=== PATIENT | female | born 1935 | race Caucasian/White ===

== ENCOUNTER 2017-02-20 00:32 | Inpatient (IN) ==
[2017-02-20 01:00] LABS: INR 1.2; Prothrombin Time 13.1 Seconds (9.4-12.1)
[2017-02-20 01:03] LABS: Activated Partial Thrombo Time 25.9 Seconds (26.0-36.0)
[2017-02-20 01:10] LABS: Albumin 2.9 g/dL (3.5-5.0); Albumin/Globulin Ratio 0.9 (1.1-2.2); Alkaline Phosphatase 95 Units/L (38-126); Aspartate Amino Transferase 13 Units/L (5-34); BUN/Creatinine Ratio 20 (6-26); Bilirubin,Direct 0.2 mg/dL (0.0-0.5); Bilirubin,Indirect 0.2 mg/dL (0.0-1.2); Bilirubin,Total 0.4 mg/dL (0.2-1.2); Blood Urea Nitrogen 24 mg/dL (7-20); Calcium 8.1 mg/dL (8.6-10.8); Carbon Dioxide 18 mEq/L (19-29); Chloride 109 mEq/L (98-109); Globulin 3.4 g/dL (2.4-3.5); Glucose 136 mg/dL (70-99); Osmolality,Calculated 292 (280-300); Potassium 4.2 mEq/L (3.5-4.5); Sodium 138 mEq/L (136-145); Total Protein 6.3 g/dL (6.0-8.3); eGFR For African Americans 51 (> 60); eGFR For Non-African Americans 42 (> 60)
[2017-02-20 01:21] LABS: Basophils % 0.4 %; Eosinophils # 0.1 K/mcL (0.0-0.6); Hematocrit 32.2 % (35.3-44.9); Hemoglobin 10.1 g/dL (11.5-15.4); Immature Granulocytes % 0.3 % (0-4); Lymphocytes # 0.4 K/mcL (0.6-4.6); Lymphocytes % 3.9 %; Mean Corpuscular HGB Conc 31.4 g/dL (31.6-35.5); Mean Corpuscular Hemoglobin 25.9 pg (28.0-33.3); Mean Corpuscular Volume 82.6 fL (83.0-100.0); Mean Platelet Volume 9.8 fL (9.4-12.4); Monocytes # 0.6 K/mcL (0.0-1.3); Monocytes % 5.2 %; Neutrophils # 9.5 K/mcL (1.6-8.9); Platelet Count 238 K/mcL (140-400); Red Cell Distribution Width 15.7 % (11.5-14.5); Segmented Neutrophils % 89.2 %
--- NOTE | 2017-02-20 01:21 | Emergency Department Note ---
"Disposition Clinical Impression: UTI (urinary tract infection) Qualifiers: Urinary tract infection type: site unspecified Hematuria presence: without hematuria Qualified Code(s): N39.0 - Urinary tract infection, site not specified Altered mental status Qualifiers: Altered mental status type: unspecified Qualified Code(s): R41.82 - Altered mental status, unspecified Disposition: Admitted As Inpatient Condition: Good Referrals: Mitchell Farah MD [Primary Care Provider] - Forms: ED Satisfaction Letter Altered Mental Status HPI - General Chief Complaint: ED Altered Mental Status Stated Complaint: AMS Time Seen by Provider: 02/20/17 00:34 Source: patient Mode of arrival: EMS Limitations: altered mental status Nursing Notes Reviewed: Yes Vital Signs Reviewed: Yes - History of Present Illness HPI Narrative: 81-year-old female history of hypertension, Parkinson's, Alzheimer's who presents to the ER from nursing facility due to concern for worsening confusion. Patient reports she was out playing with other old people. She is a poor historian and unable to provide much history. She is alert and oriented 2. She states that she thinks she might have a UTI. States she has had several in the past. She has had discomfort whenever she is urinating. No chest pain or shortness of breath. No abdominal pain. No nausea vomiting or diarrhea. No other complaints. MD complaint: confusion Onset (ago): unknown Context: history of similar presentation Associated symptoms: Reports: cough. Denies: chest pain, fever, nausea/vomiting - Related Data Home Medications Medication Instructions Recorded Confirmed Carbidopa/Levodopa 1 tab PO QID 03/15/16 02/02/17 [Carbidopa-Levodopa 25-100 Tab] Rotigotine [Neupro] 1 each TD DAILY MDD 4mg/24hr 03/15/16 02/02/17 Acetaminophen [Tylenol] 650 mg PO Q4H 08/03/16 02/02/17 Gabapentin [Neurontin] 400 mg PO TID 08/03/16 02/02/17 Lisinopril [Zestril] 5 mg PO DAILY 08/03/16 02/02/17 Oxycodone HCl [Oxaydo] 5 mg PO QID PRN 08/03/16 02/02/17 Sennosides/Docusate Sodium [Senna 1 each PO BID 08/03/16 02/02/17 Plus] Acetaminophen [Non-Aspirin] 650 mg PO Q6H PRN 11/02/16 02/02/17 Aspirin [Lo-Dose Aspirin EC] 81 mg PO DAILY 11/02/16 02/02/17 Ipratropium/Albuterol Neb [Duoneb] 3 ml IH QID PRN 11/02/16 02/02/17 Mv-Mn/FA/Vit K1/Lycop/Lut/Zeax 1 each PO DAILY 11/02/16 02/02/17 [Ocuvite Eye + Multi Tablet] Previous Rx's Medication Instructions Recorded Polyethylene Glycol 3350 [MiraLAX] 17 gm PO DAILY #14 powd.pack 03/18/16 Octreotide Acetate (LAR) 20 mg IM QMONTH #6 kit 02/15/17 [Sandostatin Lar] Allergies Allergy/AdvReac Type Severity Reaction Status Date / Time cephalexin [From Keflex] Allergy Rash Verified 11/02/16 13:49 All systems ED: reviewed and negative except as stated. Constitutional: Denies: fever Cardiovascular: Denies: chest pain Respiratory: Reports: cough. Denies: dyspnea Gastrointestinal: Denies: abdominal pain, nausea, vomiting Genitourinary: Reports: dysuria. Denies: hematuria Past Medical History - Past Medical History Attestation: Yes The following information was validated with the patient. Source: patient, old records reviewed Medical history: Reports: arthritis, cancer, coronary artery disease, CVA, dementia, GERD, hyperlipidemia, hypertension, malignancy, osteoporosis, peripheral artery disease, renal disease, venous stasis, other Surgical history: Reports: appendectomy, colectomy (Partial colectomy for diverticular disease.), herniorrhaphy, hip replacement, orthopedic, other (Back surgery. Right elbow surgery.), other (Cardiac Septal defect repair. Oophorectomy.), LE stent (s), LE vascular intervention Psychiatric history: Reports: no psych history - Social History Smoking Status: Never smoker Smokeless Tobacco Status: No Alcohol use: Reports: none Drug use: Reports: none Physical Exam - General Limitations: altered mental status General appearance: alert, in no apparent distress - Head Head exam: atraumatic - Eye Eye exam: Present: normal appearance, PERRL, EOMI - ENT ENT exam: normal exam - Neck Neck exam: Present: normal inspection, full ROM - Chest Chest inspection: Present: normal inspection, symmetric chest wall rise - Respiratory Respiratory exam: Present: normal lung sounds bilaterally - Cardiovascular Cardiovascular exam: Present: regular rate, normal rhythm, normal heart sounds - Abdominal Exam Abdominal exam: Present: soft, Non-Tender. Absent: tenderness - Extremities Exam Extremities exam: Present: normal inspection, full ROM - Expanded Upper Extremity Exam Shoulder exam: Present: normal inspection, full ROM Arm exam: Present: normal inspection, full ROM Elbow exam: Present: normal inspection, full ROM Forearm/Wrist exam: Present: normal inspection, full ROM Hand exam: Present: normal inspection, full ROM - Expanded Lower Extremity Exam Hip/Pelvis exam: Present: normal inspection, full ROM Upper leg exam: Present: normal inspection, full ROM Knee exam: Present: normal inspection, full ROM Lower leg exam: Present: normal inspection, full ROM Ankle exam: Present: normal inspection, full ROM Foot/toe exam: Present: normal inspection, full ROM Neurovascular/Tendon exam: Absent: motor deficit, sensory deficit - Neurological Exam Neurological exam: Present: alert, CN II-XII intact. Absent: oriented X3, motor sensory deficit - Expanded Neurological Exam Patient oriented to: Present: person, place Speech: Present: fluid speech Cranial nerves: EOM function (II, III, IV, ): Normal, facial sensation (V): Normal, spinal accessory function (XI): Normal, tongue deviation (XII): Normal Motor strength - LUE: 4/5 Motor strength - RUE: 4/5 Motor strength - LLE: 4/5 Motor strength - RLE: 4/5 Sensory exam upper extremity: light touch: Normal Sensory exam lower extremity: light touch: Normal Coma Scale Eye Opening: Spontaneous Coma Scale Motor Response: Obeys Commands Coma Scale Verbal Response: Oriented Coma Scale Total: 15 - Psychiatric Psychiatric exam: Present: normal affect - Skin Skin exam: Present: warm, dry, intact Course Course Narrative: Patient seen and examined. A and O 2 here. Febrile. We will check a CT scan of her head as well as EKG, chest x-ray as well as labs including lactate and blood cultures and urinalysis. Vital Signs Temperature 102.5 F H 02/20/17 01:26 EDT Pulse Rate 90 02/20/17 01:26 EDT Respiratory Rate 18 02/20/17 01:26 EDT Blood Pressure 126/57 02/20/17 01:26 EDT O2 Sat by Pulse Oximetry 94 02/20/17 01:26 EDT Temperature 102.5 F H 02/20/17 01:26 EDT Pulse Rate 101 02/20/17 02:19 Respiratory Rate 18 02/20/17 02:19 Blood Pressure 113/40 02/20/17 02:19 O2 Sat by Pulse Oximetry 93 02/20/17 02:19 Oxygen Delivery Oxygen Delivery Room Air Altered Mental Status - MDM Narrative Medical decision making narrative: 81-year-old female presents to the ER due to altered mental status. Baseline dementia but reports more confused. She is alert and oriented 2. Nonfocal neurologic exam. Found to be febrile here. Urinalysis to mistreats UTI. Patient given a liter of fluids as well as Levaquin. She is admitted to the hospitalist service for UTI, altered mental status. - Lab Data Lab results reviewed: Yes I reviewed the patient's lab results. Result diagrams: 02/20/17 01:04 EST 02/20/17 01:04 EST Lab Results 02/20/17 02/20/17 02/20/17 Range/Units 01:04 EST 01:04 EST 01:04 EST WBC 10.7 (4.3-11.1) K/mcL RBC 3.90 (3.82-4.97) M/mcL Hgb 10.1 L (11.5-15.4) g/dL Hct 32.2 L (35.3-44.9) % MCV 82.6 L (83.0-100.0) fL MCH 25.9 L (28.0-33.3) pg MCHC 31.4 L (31.6-35.5) g/dL RDW 15.7 H (11.5-14.5) % Plt Count 238 (140-400) K/mcL MPV 9.8 (9.4-12.4) fL Immature Gran % 0.3 (0-4) % Seg Neutrophils % 89.2 % Lymphocytes % 3.9 % Monocytes % 5.2 % Eosinophils % 1.0 % Basophils % 0.4 % Neutrophils # 9.5 H (1.6-8.9) K/mcL Lymphocytes # 0.4 L (0.6-4.6) K/mcL Monocytes # 0.6 (0.0-1.3) K/mcL Eosinophils # 0.1 (0.0-0.6) K/mcL Basophils # 0.0 (0.0-0.2) K/mcL PT 13.1 H (9.4-12.1) Seconds INR 1.2 APTT 25.9 L (26.0-36.0) Seconds Sodium 138 (136-145) mEq/L Potassium 4.2 (3.5-4.5) mEq/L Chloride 109 (98-109) mEq/L Carbon Dioxide 18 L (19-29) mEq/L BUN 24 H (7-20) mg/dL Creatinine 1.23 H (0.57-1.11) mg/dL Est GFR ( Amer) 51 L (> 60) Est GFR (Non-Af Amer) 42 L (> 60) BUN/Creatinine Ratio 20 (6-26) Glucose 136 H (70-99) mg/dL Calculated Osmolality 292 (280-300) Lactic Acid (0.5-2.2) mmol/L Calcium 8.1 L (8.6-10.8) mg/dL Total Bilirubin 0.4 (0.2-1.2) mg/dL Direct Bilirubin 0.2 (0.0-0.5) mg/dL Indirect Bilirubin 0.2 (0.0-1.2) mg/dL AST 13 (5-34) Units/L ALT < 6 (0-55) Units/L Alkaline Phosphatase 95 (38-126) Units/L Ammonia (18-72) mcmol/L Troponin I (0-0.03) ng/mL Serum Total Protein 6.3 (6.0-8.3) g/dL Albumin 2.9 L (3.5-5.0) g/dL Globulin 3.4 (2.4-3.5) g/dL Albumin/Globulin Ratio 0.9 L (1.1-2.2) TSH (0.350-4.840) mcIU/mL Urine Color (Yellow) Urine Clarity (Clear) Urine pH (5.0-8.0) pH Units Ur Specific Blue (1.010-1.025) Urine Protein (Neg-Trace) mg/dL Urine Glucose (UA) (Normal) mg/dL Urine Ketones (Negative) mg/dL Urine Blood (Negative) Urine Nitrite (Negative) Urine Bilirubin (Negative) Urine Urobilinogen (Normal) mg/dL Ur Leukocyte Esterase (Negative) Urine Microscopic RBC (0-3) per hpf Urine Microscopic WBC (0-3) per hpf Ur Squamous Epith Cells (None-Few) per lpf Urine Bacteria (None-Few) per hpf Hyaline Casts (None-Few) per lpf Ur Culture Indicated? (NO) Ethyl Alcohol < 10 (0-10) mg/dL 02/20/17 02/20/17 02/20/17 Range/Units 01:04 EST 01:04 EST 01:04 EST WBC (4.3-11.1) K/mcL RBC (3.82-4.97) M/mcL Hgb (11.5-15.4) g/dL Hct (35.3-44.9) % MCV (83.0-100.0) fL MCH (28.0-33.3) pg MCHC (31.6-35.5) g/dL RDW (11.5-14.5) % Plt Count (140-400) K/mcL MPV (9.4-12.4) fL Immature Gran % (0-4) % Seg Neutrophils % % Lymphocytes % % Monocytes % % Eosinophils % % Basophils % % Neutrophils # (1.6-8.9) K/mcL Lymphocytes # (0.6-4.6) K/mcL Monocytes # (0.0-1.3) K/mcL Eosinophils # (0.0-0.6) K/mcL Basophils # (0.0-0.2) K/mcL PT (9.4-12.1) Seconds INR APTT (26.0-36.0) Seconds Sodium (136-145) mEq/L Potassium (3.5-4.5) mEq/L Chloride (98-109) mEq/L Carbon Dioxide (19-29) mEq/L BUN (7-20) mg/dL Creatinine (0.57-1.11) mg/dL Est GFR ( Amer) (> 60) Est GFR (Non-Af Amer) (> 60) BUN/Creatinine Ratio (6-26) Glucose (70-99) mg/dL Calculated Osmolality (280-300) Lactic Acid (0.5-2.2) mmol/L Calcium (8.6-10.8) mg/dL Total Bilirubin (0.2-1.2) mg/dL Direct Bilirubin (0.0-0.5) mg/dL Indirect Bilirubin (0.0-1.2) mg/dL AST (5-34) Units/L ALT (0-55) Units/L Alkaline Phosphatase (38-126) Units/L Ammonia 30 (18-72) mcmol/L Troponin I 0.02 (0-0.03) ng/mL Serum Total Protein (6.0-8.3) g/dL Albumin (3.5-5.0) g/dL Globulin (2.4-3.5) g/dL Albumin/Globulin Ratio (1.1-2.2) TSH 6.520 H (0.350-4.840) mcIU/mL Urine Color (Yellow) Urine Clarity (Clear) Urine pH (5.0-8.0) pH Units Ur Specific Blue (1.010-1.025) Urine Protein (Neg-Trace) mg/dL Urine Glucose (UA) (Normal) mg/dL Urine Ketones (Negative) mg/dL Urine Blood (Negative) Urine Nitrite (Negative) Urine Bilirubin (Negative) Urine Urobilinogen (Normal) mg/dL Ur Leukocyte Esterase (Negative) Urine Microscopic RBC (0-3) per hpf Urine Microscopic WBC (0-3) per hpf Ur Squamous Epith Cells (None-Few) per lpf Urine Bacteria (None-Few) per hpf Hyaline Casts (None-Few) per lpf Ur Culture Indicated? (NO) Ethyl Alcohol (0-10) mg/dL 02/20/17 02/20/17 Range/Units 01:06 EST 01:16 EST WBC (4.3-11.1) K/mcL RBC (3.82-4.97) M/mcL Hgb (11.5-15.4) g/dL Hct (35.3-44.9) % MCV (83.0-100.0) fL MCH (28.0-33.3) pg MCHC (31.6-35.5) g/dL RDW (11.5-14.5) % Plt Count (140-400) K/mcL MPV (9.4-12.4) fL Immature Gran % (0-4) % Seg Neutrophils % % Lymphocytes % % Monocytes % % Eosinophils % % Basophils % % Neutrophils # (1.6-8.9) K/mcL Lymphocytes # (0.6-4.6) K/mcL Monocytes # (0.0-1.3) K/mcL Eosinophils # (0.0-0.6) K/mcL Basophils # (0.0-0.2) K/mcL PT (9.4-12.1) Seconds INR APTT (26.0-36.0) Seconds Sodium (136-145) mEq/L Potassium (3.5-4.5) mEq/L Chloride (98-109) mEq/L Carbon Dioxide (19-29) mEq/L BUN (7-20) mg/dL Creatinine (0.57-1.11) mg/dL Est GFR ( Amer) (> 60) Est GFR (Non-Af Amer) (> 60) BUN/Creatinine Ratio (6-26) Glucose (70-99) mg/dL Calculated Osmolality (280-300) Lactic Acid 1.7 (0.5-2.2) mmol/L Calcium (8.6-10.8) mg/dL Total Bilirubin (0.2-1.2) mg/dL Direct Bilirubin (0.0-0.5) mg/dL Indirect Bilirubin (0.0-1.2) mg/dL AST (5-34) Units/L ALT (0-55) Units/L Alkaline Phosphatase (38-126) Units/L Ammonia (18-72) mcmol/L Troponin I (0-0.03) ng/mL Serum Total Protein (6.0-8.3) g/dL Albumin (3.5-5.0) g/dL Globulin (2.4-3.5) g/dL Albumin/Globulin Ratio (1.1-2.2) TSH (0.350-4.840) mcIU/mL Urine Color Yellow (Yellow) Urine Clarity Turbid A (Clear) Urine pH 5.0 (5.0-8.0) pH Units Ur Specific Blue 1.018 (1.010-1.025) Urine Protein Trace (Neg-Trace) mg/dL Urine Glucose (UA) Normal (Normal) mg/dL Urine Ketones Negative (Negative) mg/dL Urine Blood Negative (Negative) Urine Nitrite Negative (Negative) Urine Bilirubin Negative (Negative) Urine Urobilinogen Normal (Normal) mg/dL Ur Leukocyte Esterase Large H (Negative) Urine Microscopic RBC 0-3 (0-3) per hpf Urine Microscopic WBC TNTC H (0-3) per hpf Ur Squamous Epith Cells Moderate H (None-Few) per lpf Urine Bacteria Many H (None-Few) per hpf Hyaline Casts None Seen (None-Few) per lpf Ur Culture Indicated? YES A (NO) Ethyl Alcohol (0-10) mg/dL - Radiology Data Radiology results reviewed: Yes I reviewed the patient's radiology results. Chest X-Ray 02/20/17 00:53 IMPRESSION: Findings as above likely related to edema or infection. D/ / Nisha Shepherd MD / Nisha Shepherd MD Interpreting Provider: Nisha Shepherd MD Head CT 02/20/17 00:54 IMPRESSION: No acute intracranial abnormality. No substantial change. D/ / Nisha Shepherd MD / Nisha Shepherd MD Interpreting Provider: Nisha Shepherd MD - EKG Data EKG attestation: Yes I reviewed and interpreted this EKG. EKG results narrative: EKG demonstrates atrial fibrillation with rate of 80 bpm. IVCD with prolonged QRS duration of 133. Normal axis. No ST elevations or depressions. No acute ischemic findings. TPA Checklist - LKW: 3-4.5 hrs Add. Warnings/Precautions Patient/family understanding: The patient/family members have been counseled and understood the risk, benefit , and alternatives of treatment. S.B.A.RKaren - Shelby.Eddie.Maria Dolores Situation: Demographics, MOA Background: Presenting Complaint, Relevant PMH, Meds, & Allergies Assessment: Vital Signs, Course and respsone to treatment, Exam Concerns, Patient/Family Expectation, Pertinant Lab Results, Outstanding Labs Recommendation: Barrier(s) to disposition, Recommendation based on pending studies, treatments, or consults S.B.Maria Dolores Report Given to: Dr. Adama Gutierrez Repor Time: 02:27 (Requests ertapenem for abx) Attestation Statement - Attestation Attestation: I, Tho Robbins DO, examined this patient [id number] and my medical decision-making was reviewed with Dr. John Paul Shepard, Resident Physician. I agree with the documented findings, disposition and treatment plan as described except to the extent set forth below. Please see my progress notes for details. 81-year-old female presents from longterm facility for evaluation of fever and progression of confusion. She has baseline Alzheimer's and dementia. She had a fever of 101 at their facility is 102.5 here. Patient is alert and answers questions appropriately but is still only alert and oriented 2. Vital signs reviewed on presentation. Sepsis evaluation to be completed this time. Lungs are clear heart is regular abdomen is soft nontender nondistended.| No peritoneal symptoms. No guarding no rigidity. Patient moves all 4 tremors or purpura is no signs of swelling edema or cellulitis. Patient will have detailed workup completed for infectious etiology. Tylenol to be given for the fever. Fluids and antibiotic regimen to be started this point. Patient otherwise is resting comfortably in the bed. No other acute findings on physical exam. See detailed documentation of physical exam, medical intervention, medical decision-making and disposition in a resident physician's note [id number] Patient found a urinary tract infection pneumonia. Levaquin over this time. Admission process to be completed."
[2017-02-20 01:22] LABS: Alanine Aminotransferase < 6 Units/L (0-55)
[2017-02-20 01:27] LABS: Bilirubin,Urine Negative (Negative); Blood,Urine Negative (Negative); Clarity,Urine Turbid (Clear); Color,Urine Yellow (Yellow); Glucose,Urine (UA) Normal (Normal); Ketones,Urine Negative (Negative); Leukocyte Esterase,Urine Large (Negative); Nitrite,Urine Negative (Negative); Protein,Urine Trace mg/dL (Neg-Trace); Specific Gravity,Urine 1.018 (1.010-1.025); Urobilinogen,Urine Normal (Normal)
[2017-02-20 01:29] LABS: Bacteria,Urine Many per hpf (None-Few); Hyaline Casts,Urine None Seen per lpf (None-Few); RBC,Urine 0-3 per hpf (0-3); Squamous Epithelial Cell,Urine Moderate per lpf (None-Few); WBC,Urine TNTC per hpf (0-3)
[2017-02-20 01:41] LABS: Ethanol < 10 mg/dL (0-10)
[2017-02-20] MEDS ORDERED: Levofloxacin 750 MG/150 ML 750 MG/150 ML BAG IVPB ONE (02:02)
[2017-02-20] MEDS ORDERED: 0.9 % Sodium Chloride 1,000 ML IVC ONE (02:05)
[2017-02-20] MEDS ORDERED: Ertapenem 1,000 MG in Water for inj. (sterile) 10 ML IVP ONE (02:26)
[2017-02-20] MEDS ORDERED: *HR* Morphine 2 MG/ML SYRINGE IVP PRN ×2 (03:10)
[2017-02-20] MEDS ORDERED: Ondansetron 4 MG/2 ML VIAL IVP PRN (03:11)
--- NOTE | 2017-02-20 03:18 | Internal Med History&Physical ---
Date of Encounter: 02/20/17 Time of Encounter: 03:16 Assessment and Plan (1) Metabolic encephalopathy Current visit: Yes Status: Acute Acute metabolic encephalopathy secondary to sepsis due to UTI with history of ESBL Escherichia coli in the past, also possible healthcare associated pneumonia present upon admission/gram-negative pneumonia Start ertapenem, azithromycin to cover for atypicals Blood cultures and urine cultures Use Mild hydration due to vascular congestive changes on chest x-ray Omeprazole for GI prophylaxis and subcutaneous heparin for DVT prophylaxis. The patient will be admitted as inpatient, expected to stay more than 2 midnights. Full code. 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 Time spent on this admission 40 minutes. (2) Sepsis Current visit: Yes Status: Acute Qualifiers: Sepsis type: sepsis due to unspecified organism Qualified Code(s): A41.9 - Sepsis, unspecified organism (3) History of ESBL E. coli infection Current visit: Yes Status: Acute (4) Healthcare-associated pneumonia Current visit: Yes Status: Acute (5) UTI (urinary tract infection) Current visit: Yes Status: Acute Qualifiers: Urinary tract infection type: site unspecified Hematuria presence: without hematuria Qualified Code(s): N39.0 - Urinary tract infection, site not specified (6) Parkinsons disease Current visit: No Status: Chronic Continue Sinemet (7) Alzheimer disease Current visit: No Status: Chronic Qualifiers: Alzheimer's disease onset: unspecified onset Dementia behavioral disturbance: without behavioral disturbance Qualified Code(s): G30.9 - Alzheimer's disease, unspecified; F02.80 - Dementia in other diseases classified elsewhere without behavioral disturbance (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 Orlando is a 81 year old female with a past medical history of Alzheimer's , Parkinson's, chronic kidney disease stage III, neuropathy, Escherichia coli ESBL growing on multiple occasions on urine cultures, came to the emergency room complaining of fever, dysuria, confusion. Developed a temperature of 102.5 creatinine has increased to 1.23 from a baseline of 0.97. UA shows many bacteria with too numerous to count white blood cells, CT scan of the head is unremarkable, chest x-ray shows a left pleural effusion and. He will year opacities suggesting either infection or congestion. Heart rate was 101. Patient is able to answer questions but gets confused very easily, is a very poor historian. 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 month, followed by oncology), coronary artery disease, CVA, dementia, GERD, hyperlipidemia, hypertension, malignancy, osteoporosis, peripheral artery disease, renal disease, venous stasis, other ( UTI with ESBL Escherichia coli, endometriosis, spinal stenosis, Parkinson's, Alzheimer's, neuropathy, CVA, small bowel obstruction, macular degeneration, fibroids, chronic kidney disease stage III, septal defect correction) Psychiatric history: no psych history - Past Surgical History Surgical History: appendectomy, colectomy (Partial colectomy for diverticular disease.), herniorrhaphy, hip replacement, orthopedic, other (Back surgery. Right elbow surgery.), other (Cardiac Septal defect repair. Oophorectomy. Stents in both legs, oophorectomy), LE stent (s), LE vascular intervention - Social History Smoking Status: Never smoker Smokeless Tobacco Status: No Alcohol use: none Drug use: none - Additional Family History Additional family history: Mother with CVA and brain tumor Internal Medicine - H&P: Meds Carbidopa/Levodopa [Carbidopa-Levodopa 25-100 Tab] 1 tab PO QID 03/15/16 [ History] Rotigotine [Neupro] 1 each TD DAILY MDD 4mg/24hr 03/15/16 [History] Polyethylene Glycol 3350 [MiraLAX] 17 gm PO DAILY #14 powd.pack 03/18/16 [Rx] Acetaminophen [Tylenol] 650 mg PO Q4H 08/03/16 [History] Gabapentin [Neurontin] 400 mg PO TID 08/03/16 [History] Lisinopril [Zestril] 5 mg PO DAILY 08/03/16 [History] Oxycodone HCl [Oxaydo] 5 mg PO QID PRN 08/03/16 [History] Sennosides/Docusate Sodium [Senna Plus] 1 each PO BID 08/03/16 [History] Acetaminophen [Non-Aspirin] 650 mg PO Q6H PRN 07/18/17 [History] Aspirin [Lo-Dose Aspirin EC] 81 mg PO DAILY 11/02/16 [History] Ipratropium/Albuterol Neb [Duoneb] 3 ml IH QID PRN 11/02/16 [History] Mv-Mn/FA/Vit K1/Lycop/Lut/Zeax [Ocuvite Eye + Multi Tablet] 1 each PO DAILY [History] Octreotide Acetate (LAR) [Sandostatin Lar] 20 mg IM QMONTH #6 kit 02/15/17 [Rx] 3 Allergy/AdvReac Type Severity Reaction Status Date / Time cephalexin [From Keflex] Allergy Rash Verified 11/02/16 13:49 All Systems PM: A 10-system review of systems was performed and is negative for pertinent findings except as documented above in the HPI. Review of systems: Feels very tired, unable to complete review of systems due to patient's confusion - Constitutional Vitals: Temp Pulse Resp BP Pulse Ox 102.5 F H 88 18 124/66 94 02/20/17 01:26 EDT 02/20/17 03:03 02/20/17 03:03 02/20/17 03:03 02/20/17 03 :03 General appearance: Present: A&O X 2 (Disorientating in place) - Head Head exam: Present: atraumatic, normocephalic - Eye Eye exam: Present: PERRL, conjuntiva pink, sclera anicteric Pupils: Present: PERRL - Neck Neck exam general surgery: Present: supple, trachea midline. Absent: lymphadenopathy - Respiratory Respiratory exam: Present: decreased breath sounds, CTAB. Absent: accessory muscle use, rales, rhonchi, wheezes - Cardiovascular Cardiovascular exam: Present: RRR, +S1, +S2. Absent: diastolic murmur, gallop, rubs, systolic murmur - GI/Abdominal GI/Abdominal exam: Present: normal bowel sounds, soft, no peritoneal signs. Absent: distended, tenderness - Extremities Exam Extremities exam: Present: warm, radial pulses palpable and symmetrical. Absent : calf tenderness, cyanotic, pedal edema - Neurological Exam Neurological exam: Present: CN II-XII intact, no focal deficits. Absent: oriented X3, pronater drift, facial droop, speech deficit - Skin Skin exam: Present: dry, intact Internal Med - H&P Results - Labs CBC & Chem 7: 02/20/17 01:04 EST 02/20/17 01:04 EST
[2017-02-20] MEDS: 0.9 % Sodium Chloride 1,000 ML IVC SCH ×2 (05:30→22:11)
[2017-02-20] MEDS: Azithromycin 500 MG in D5% in Water 250 ML IVPB SCH (05:30)
[2017-02-20] MEDS: *HR* Heparin 5,000 UNIT/ML VIAL SQ SCH ×2 (05:30→18:24)
[2017-02-20] MEDS: ROTIGOTINE TP SCH (09:27)
[2017-02-20] MEDS: Carbidopa/Levodopa 25/100 TABLET PO SCH ×4 (09:34→20:10)
[2017-02-20] MEDS: Aspirin Enteric Coated 81 MG Tablet PO SCH (09:34)
[2017-02-20] MEDS: Gabapentin 400 MG CAPSULE PO SCH ×3 (09:34→20:10)
--- NOTE | 2017-02-20 10:34 | Internal Med Progress Note ---
Date of Encounter: 02/20/17 Time of Encounter: 10:29 - Assessment and plan (1) Sepsis Current Visit: Yes Status: Acute Assessment and plan: Alma Orlando is a 81-year-old female with past medical history Parkinson's, Alzheimer's and colon mass who presented to [facility] on 02/19/2017 from senior care with worsening confusion. She was found to be in sepsis and was admitted for IV ATB was further workup and treatment. 1. UTI: UA indicative of UTI. Received IV Levaquin in ER. History of ESBL Escherichia coli in the past. ATB changed to ertapenem on admission. Urine culture pending. Narrow ATB according to culture. 2. Healthcare associated pneumonia: present upon admission. CXR with mild perihilar opacities concerning for pneumonia. Suspect gram-negative pneumonia. Cont ertapenem and azithromycin to cover for gram-negative/atypicals. Respiratory PCR, urinary antigens pending. 3. Sepsis: Present on admission. Tmax 102.5, HR 101. WBC 10K, lactic acid normal. Secondary to UTI and possible pneumonia. Hemodynamically stable. Continue IV fluids and IV ATB as noted above. 4. SAVAGE: Cr 1.23, previously normal. Secondary to sepsis. Continue IV fluids. Holding home CLARIBEL. Monitor repeat renal function. 5. Metabolic encephalopathy: Presented from [facility] with worsening confusion. Has history of Alzheimer's and baseline mentation unknown. Alert to self and place. Head CT nonacute, ammonia level normal. Multifactorial with underlying Alzheimer's and acute illness. 6. Parkinson's disease: Per history. Continue home carbidopa/levodopa. 7. Alzheimer's: per hx. supportive care 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 DVT prophylaxis: Heparin Qualifiers: Sepsis type: sepsis due to unspecified organism Qualified Code(s): A41.9 - Sepsis, unspecified organism (2) SAVAGE (acute kidney injury) Current Visit: Yes Status: Acute (3) Malignant carcinoid tumor of the ileum Current Visit: No Status: Chronic (4) Metabolic encephalopathy Current Visit: Yes Status: Acute (5) Parkinsons disease Current Visit: No Status: Chronic - Subjective Interval history: Seen and examined at bedside. Patient is new to me, information obtained from chart review and patient report, although patient is not alert and oriented and unable to provide details. She tells me she is not experiencing shortness of breath now, says she was when she came into the hospital. Her chest pain. She thinks she has had a fever. No dysuria. No family at bedside for collateral. - Constitutional Vitals: Temp Pulse Resp BP Pulse Ox 97.7 F 74 18 94/61 96 02/20/17 07:06 02/20/17 07:06 02/20/17 07:06 02/20/17 07:06 02/20/17 07:06 General appearance: Present: A&O X 2 - Head Head exam: Present: atraumatic, normocephalic - Eye Eye exam: Present: PERRL, conjuntiva pink, sclera anicteric Pupils: Present: PERRL - Neck Neck exam general surgery: Present: supple, trachea midline. Absent: lymphadenopathy - Respiratory Respiratory exam: Present: CTAB. Absent: accessory muscle use, rales, rhonchi, wheezes - Cardiovascular Cardiovascular exam: Present: RRR, +S1, +S2. Absent: diastolic murmur, gallop, rubs, systolic murmur - GI/Abdominal GI/Abdominal exam: Present: normal bowel sounds, soft, no peritoneal signs. Absent: distended, tenderness - Extremities Exam Extremities exam: Present: warm, radial pulses palpable and symmetrical. Absent : calf tenderness, cyanotic, pedal edema - Neurological Exam Neurological exam: Present: alert, altered, CN II-XII intact, no focal deficits. Absent: pronater drift, facial droop, speech deficit Additional comments: Alert to self and place only - Skin Skin exam: Present: dry, intact Internal Medicine: Result - Labs CBC & Chem 7: 02/20/17 01:04 EST 02/20/17 01:04 EST - ABG Interpretation ABG results: PT/INR, D-dimer PT 13.1 Seconds (9.4-12.1) H 02/20/17 01:04 EST Consult Discharge Plan - Plan Referrals: Mitchell Farah MD [Primary Care Provider] -
[2017-02-20] MEDS ORDERED: *HR* OxyCODONE Immed Rel 5 MG TABLET PO PRN (13:07)
[2017-02-20 14:37] LABS: Enterococcus by PCR Not Detected (Not Detect); Staphylococcus aureus by PCR Not Detected (Not Detect); Streptococcus agalactiae(B)PCR Not Detected (Not Detect); Streptococcus by PCR Not Detected (Not Detect); blaKPC Carbapenem-Resist Gene Not Detected (Not Detect); mecA Methicillin-Resist Gene Not Detected (Not Detect); vanA/B Vancomycin-Resist Genes Not Detected (Not Detect)
[2017-02-20 14:38] LABS: Acinetobacter baumannii by PCR Not Detected (Not Detect); Candida albicans by PCR Not Detected (Not Detect); Candida glabrata by PCR Not Detected (Not Detect); Candida krusei by PCR Not Detected (Not Detect); Candida parapsilosis by PCR Not Detected (Not Detect); Candida tropicalis by PCR Not Detected (Not Detect); Escherichia coli by PCR ***DETECTED*** (Not Detect); Klebsiella oxytoca by PCR Not Detected (Not Detect); Klebsiella pneumoniae by PCR Not Detected (Not Detect); Pseudomonas aeruginosa by PCR Not Detected (Not Detect); Serratia marcescens by PCR Not Detected (Not Detect); Streptococcus pneumoniae PCR Not Detected (Not Detect); Streptococcus pyogenes (A) PCR Not Detected (Not Detect)
[2017-02-20] MEDS: Acetaminophen 325 MG TABLET PO PRN (18:55)
[2017-02-20 20:03] LABS: Adenovirus Not Detected (Not Detect); Bordetella Pertussis Not Detected (Not Detect); Chlamydophila pneumoniae Not Detected (Not Detect); Coronavirus 229E Not Detected (Not Detect); Coronavirus HKU1 Not Detected (Not Detect); Coronavirus NL63 Not Detected (Not Detect); Coronavirus OC43 Not Detected (Not Detect); Human Metapneumovirus Not Detected (Not Detect); Human Rhinovirus/Enterovirus Not Detected (Not Detect); Influenza A Subtype 2009 H1 Not Detected (Not Detect); Influenza A Untypeable Not Detected (Not Detect); Influenza B Not Detected (Not Detect); Mycoplasma pneumoniae Not Detected (Not Detect); Parainfluenza Virus 1 Not Detected (Not Detect); Parainfluenza Virus 2 Not Detected (Not Detect); Parainfluenza Virus 3 Not Detected (Not Detect); Parainfluenza Virus 4 Not Detected (Not Detect); Respiratory Syncytial Virus Not Detected (Not Detect)
[2017-02-21 04:48] LABS: Hematocrit 33.3 % (35.3-44.9); Hemoglobin 10.3 g/dL (11.5-15.4); Mean Corpuscular HGB Conc 30.9 g/dL (31.6-35.5); Mean Corpuscular Hemoglobin 26.3 pg (28.0-33.3); Mean Corpuscular Volume 85.2 fL (83.0-100.0); Mean Platelet Volume 10.3 fL (9.4-12.4); Platelet Count 227 K/mcL (140-400); Red Blood Count 3.91 M/mcL (3.82-4.97); Red Cell Distribution Width 15.9 % (11.5-14.5)
[2017-02-21 05:02] LABS: Calcium 8.6 mg/dL (8.6-10.8); Potassium 4.1 mEq/L (3.5-4.5)
[2017-02-21] MEDS: *HR* Heparin 5,000 UNIT/ML VIAL SQ SCH ×2 (05:09→18:20)
[2017-02-21] MEDS: Azithromycin 500 MG in D5% in Water 250 ML IVPB SCH (05:10)
[2017-02-21] MEDS: Carbidopa/Levodopa 25/100 TABLET PO SCH ×4 (07:59→20:52)
[2017-02-21] MEDS: Gabapentin 400 MG CAPSULE PO SCH (07:59)
[2017-02-21] MEDS: Aspirin Enteric Coated 81 MG Tablet PO SCH (07:59)
[2017-02-21] MEDS ORDERED: Ertapenem 1,000 MG in Water for inj. (sterile) 10 ML IVP SCH (09:00)
[2017-02-21] MEDS: Acetaminophen 325 MG TABLET PO PRN (09:28)
--- NOTE | 2017-02-21 12:56 | Infectious Disease Consult ---
Date of Encounter: 02/21/17 Time of Encounter: 12:51 Assessment and Plan (1) Sepsis Status: Acute Assessment and plan: The patient had two SIRS criteria plus SAVAGE on admission. Likely secondary to UTI and bacteremia. Improved. The patient has been afebrile. Tachycardia has resolved. SAVAGE improved marginally. Blood cultures drawn 02/20/17 are positive 2/2 sets for E. coli. Qualifiers: Sepsis type: Escherichia coli Qualified Code(s): A41.51 - Sepsis due to Escherichia coli [E. coli] (2) Bacteremia Status: Acute Assessment and plan: Causative organism: E. coli, sensitivities are pending. Source likely UTI. The patient reports some dysuria prior to admission. The patient does have a history of ESBL in the past. Repeat blood cultures x 2 sets now. Continue Ertapenem 1 gram IV daily for now. Will de-escalate if/when able based on susceptibility patterns. Duration of treatment depends on the clinical picture, but likely 14 days from the first set of negative blood cultures. If no ESBL, will likely be able to transition to PO antibiotics when ready for discharge. Monitor renal function and dose-adjust antibiotics. (3) UTI (urinary tract infection) Status: Acute Assessment and plan: Causative organism E. coli. Continue antibiotics as above for now. Qualifiers: Urinary tract infection type: site unspecified Hematuria presence: without hematuria Qualified Code(s): N39.0 - Urinary tract infection, site not specified (4) Healthcare-associated pneumonia Status: Acute Assessment and plan: CXR shows bilateral perihilar opacities concerning for possible PNA. The patient does not relate any symptoms related to PNA at this time. Repeat CXR now. If PNA confirmed, discontinue azithromycin and add Vancomycin. If negative, discontinue azithromycin. (5) SAVAGE (acute kidney injury) Status: Acute Assessment and plan: Likely secondary to sepis. Continue to trend. Dose-adjust antibiotics. Avoid nephrotoxins as able. (6) Malignant carcinoid tumor of the ileum Status: Chronic Assessment and plan: Follows with [facility]. Diagnosed in 2016, but no additional biopsy or surgery done due to the patient' s comorbid conditions and the patient's preference. Gets monthly Sandostatin injections. Infectious Disease HPI - Data of Consult Patient: new to practice Consult date: 02/21/17 Requesting Physician: Ana Whitaker CNP Primary Care Provider: Mitchell Farah MD - Consult Narrative Reason for consult: UTI/Bacteremia History of present illness: Ms. Orlando is a 81 year old female with a past medical history of malignant ileocolic mesenteric/terminal ileum carcinoid tumor currently on monthly Sandostatin injections, HTN, Parkinson's, Alzheimer's, CAD, CVA, dementia, GERD , and CKD III. The patient was admitted 02/20/17 for UTI and sepsis. We are consulted 02/21/17 for UTI and bacteremia. The patient is an 81 year old female with a past medical history as stated below. The patient presented to the ED with reports of AMS from the [facility] where she has been since March. The patient's only complaint was dysuria. On arrival, the patient was febrile and tachycardic with a normal WBC and lactic acid. CXR showed mild perihilar opacities with central pulmonary vascular congestion. CT of the head was negative. The patient was noted to have an SAVAGE. Urinalysis was obtained that was positive for leukocyte esterase and many bacteria. Blood cultures were drawn x 2 sets and they patient was started on empiric IV antibiotics. She was admitted to the hospital for further evaluation. Since admission, the patient did have a fever with a Tmax of 103. Blood and urine cultures are positive for E. coli, sensitivities are pending. The patient does have a history of E. coli ESBL UTI back in August. The patient's WBC has remained normal. Currently, the patient is on IV Ertapenem and zithromax. We've been asked to evaluate and make further recommendations. During my exam today, the patient is drowsy and somewhat difficult to keep awake. She tells me she is not sure why she came to the hospital but she thinks it was because she had a fever. She states she doesn't recall having any symptoms such as chest pain, shortness of breath, or cough. She does report a history of dysuria, but is unable to tell me for how long she has been having the symptoms. Her inability to maintain wakefulness precludes my ability to obtain further information from the patient. Additional information has been obtained from the medical record. According to the medical record, the patient has been living at [facility] since March. She was diagnosed with an ileocolic mesenteric/terminal ileum carcinoid tumor in 2015 and opted for conservative/palliative treatment due to her comorbid conditions. She has been receiving monthly Sandostatin injections since August 2015. CC: Ana Whitaker, [facility] Past Med Surg Social Fam HX - Past Medical History Source: old records reviewed, nursing notes reviewed Medical history: arthritis, cancer (Ileocolic mesenteric/terminal ileum carcinoid tumor), coronary artery disease, CVA, dementia, GERD, hyperlipidemia, hypertension, malignancy, peripheral artery disease, renal disease, venous stasis, other Psychiatric history: anxiety, depression - Past Surgical History Surgical History: appendectomy, colectomy, herniorrhaphy, hip replacement, orthopedic, other, other - Social History Smoking Status: Never smoker Smokeless Tobacco Status: No Alcohol use: none Drug use: none Current living situation: ECF - Family History Mother Name: Tali Giles Living Status: Age at : 60 Cause of : brain tumor Infectious Disease-CN:Meds Carbidopa/Levodopa [Carbidopa-Levodopa 25-100 Tab] 1 tab PO QID 03/15/16 [ History] Rotigotine [Neupro] 1 each TD DAILY 03/15/16 [History] Polyethylene Glycol 3350 [MiraLAX] 17 gm PO DAILY #14 powd.pack 03/18/16 [Rx] Acetaminophen [Tylenol] 650 mg PO Q4-6H PRN 08/03/16 [History] Lisinopril [Zestril] 5 mg PO DAILY 08/03/16 [History] Oxycodone HCl [Oxaydo] 5 mg PO QID PRN 08/03/16 [History] Sennosides/Docusate Sodium [Senna Plus] 1 each PO BID 08/03/16 [History] Aspirin [Lo-Dose Aspirin EC] 81 mg PO DAILY 11/02/16 [History] Ipratropium/Albuterol Neb [Duoneb] 3 ml IH QID PRN 11/02/16 [History] Mv-Mn/FA/Vit K1/Lycop/Lut/Zeax [Ocuvite Eye + Multi Tablet] 1 each PO DAILY [History] Octreotide Acetate (LAR) [Sandostatin Lar] 20 mg IM QMONTH #6 kit 02/15/17 [Rx] Carbidopa/Levodopa 25/100 [Sinemet 25/100] 2 each PO HS 02/20/17 [History] Gabapentin [Neurontin] 400 mg PO TID 02/20/17 [History] Loratadine [Claritin] 10 mg PO DAILY 02/20/17 [History] 3 Allergy/AdvReac Type Severity Reaction Status Date / Time cephalexin [From Keflex] Allergy Rash Verified 11/02/16 13:49 ROS unobtainable: due to mental status Exam - Constitutional Vitals: Temp Pulse Resp BP Pulse Ox 97.5 F L 60 17 100/58 99 02/21/17 11:00 02/21/17 11:00 02/21/17 11:00 02/21/17 12:24 02/21/17 11:00 General appearance: average body habitus, cooperative, no acute distress - Head Head exam: Present: atraumatic, normal inspection, normocephalic - Eye Eye exam: Present: EOMI, normal appearance, PERRL Pupils: Present: normal accommodation - ENT ENT exam: Present: mucous membranes dry - Neck Neck exam: Present: normal inspection - Respiratory Respiratory exam: Present: CTAB. Absent: rales, respiratory distress, rhonchi, wheezes - Cardiovascular Cardiovascular exam: Present: RRR, +S1, +S2 - GI/Abdominal GI/Abdominal exam: Present: normal bowel sounds, soft. Absent: distended, tenderness - Extremities Exam Extremities exam: Present: normal inspection. Absent: joint swelling, pedal edema, tenderness - Neurological Exam Neurological exam: Present: altered (Drowsy, awakens to verbal stimuli, but falls back to sleep quicly.), oriented X3, no focal deficits - Skin Skin exam: Present: dry, intact, normal color, warm Infectious Disease CN: Results - Labs CBC & Chem 7: 02/21/17 03:59 02/21/17 03:59 Cultures: Cultures 02/20/17 01:06 EST Urine Culture - Preliminary Urine,Catheterized Escherichia coli 02/20/17 01:39 EST Blood Culture - Final Peripheral Venipuncture Escherichia coli 02/20/17 01:16 EST Blood Culture - Preliminary Peripheral Venipuncture Escherichia coli Serology: Serology 02/20/17 Range/Units 18:40 Chlamy pneumoniae PCR Not Detected (Not Detect) Adenovirus (PCR) Not Detected (Not Detect) B. pertussis DNA (PCR) Not Detected (Not Detect) Coronavirus OC43 (PCR) Not Detected (Not Detect) Coronavirus HKU1 (PCR) Not Detected (Not Detect) Coronavirus 229E (PCR) Not Detected (Not Detect) Coronavirus NL63 (PCR) Not Detected (Not Detect) Human Metapneumovir PCR Not Detected (Not Detect) Influenza A (H1) PCR Not Detected (Not Detect) Influ A (H1N1/09) PCR Not Detected (Not Detect) Influenza A (H3) PCR Not Detected (Not Detect) Influenza A Untype (PCR) Not Detected (Not Detect) Influenza Type B (PCR) Not Detected (Not Detect) M.pneumoniae DNA (PCR) Not Detected (Not Detect) Parainfluenza 1 (PCR) Not Detected (Not Detect) Parainfluenza 2 (PCR) Not Detected (Not Detect) Parainfluenza 3 (PCR) Not Detected (Not Detect) Parainfluenza 4 (PCR) Not Detected (Not Detect) RSV (PCR) Not Detected (Not Detect) Entero/Rhino (PCR) Not Detected (Not Detect) Consult Discharge Plan - Plan Referrals: Mitchell Farah MD [Primary Care Provider] -
--- NOTE | 2017-02-21 15:06 | Internal Med Progress Note ---
Date of Encounter: 02/21/17 Time of Encounter: 14:56 - Assessment and plan (1) Sepsis Current Visit: Yes Status: Acute Assessment and plan: Alma Orlando is a 81-year-old female with past medical history Parkinson's, Alzheimer's and colon mass who [facility]. She was found to be in sepsis and was admitted for IV ATB was further workup and treatment. 1. Bacteremia: 02/20/2017 2/2 blood cultures positive for Escherichia coli. Continue ertapenem started on admission. Infectious disease following 2. UTI: UA indicative of UTI. Received IV Levaquin in ER. Urine culture with Escherichia coli, sensitive to ertapenem. ESBL negative. Continue ertapenem. Infectious disease following 3. Healthcare associated pneumonia: present upon admission. CXR with mild perihilar opacities concerning for pneumonia. Suspect gram-negative pneumonia. Cont ertapenem and azithromycin to cover for gram-negative/atypicals. Respiratory PCR, urinary antigens negative. Repeat chest x-ray pending. If pneumonia is confirmed stop azithromycin and add Vanco. If no evidence of pneumonia then discontinue azithromycin. 4. Sepsis: Present on admission. Tmax 102.5, HR 101. WBC 10K, lactic acid normal. Secondary to UTI and possible pneumonia. Hemodynamically stable. Continue IV fluids and IV ATB as noted above. 5. SAVAGE: Cr 1.23, previously normal. Secondary to sepsis. Continue IV fluids. Holding home CLARIBEL. Monitor repeat renal function. 6. Metabolic encephalopathy: Presented from [facility] with worsening confusion. Has history of Alzheimer's and baseline mentation alert to self and place. Head CT nonacute, ammonia level normal. Patient continues to wax and wane. Suspect multifactorial with underlying Alzheimer's and acute illness. Mentation appeared to be improved however had an acute change in mental status on 02/21 in the afternoon. Narcan given with no response. She is arousable but difficult to stay awake. Stop home gabapentin, Roxicodone. STAT head CT, ABGs pending 7. Parkinson's disease: Per history. Continue home carbidopa/levodopa. 8. Alzheimer's: per hx. 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 DVT prophylaxis: Heparin Qualifiers: Sepsis type: Escherichia coli Qualified Code(s): A41.51 - Sepsis due to Escherichia coli [E. 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 Patient appears a little more alert and coherent. She says she had an uneventful night. She has no complaints - Constitutional Vitals: Temp Pulse Resp BP Pulse Ox 97.5 F L 60 17 100/58 99 02/21/17 11:00 02/21/17 11:00 02/21/17 11:00 02/21/17 12:24 02/21/17 11:00 General appearance: Present: A&O X 2, pleasant, no acute distress - Head Head exam: Present: atraumatic, normocephalic - Eye Eye exam: Present: PERRL, conjuntiva pink, sclera anicteric Pupils: Present: PERRL - Neck Neck exam general surgery: Present: supple, trachea midline. Absent: lymphadenopathy - Respiratory Respiratory exam: Present: CTAB. Absent: accessory muscle use, rales, rhonchi, wheezes - Cardiovascular Cardiovascular exam: Present: RRR, +S1, +S2. Absent: diastolic murmur, gallop, rubs, systolic murmur - GI/Abdominal GI/Abdominal exam: Present: normal bowel sounds, soft, no peritoneal signs. Absent: distended, tenderness - Extremities Exam Extremities exam: Present: warm, radial pulses palpable and symmetrical. Absent : calf tenderness, cyanotic, pedal edema - Neurological Exam Neurological exam: Present: CN II-XII intact, oriented X3, no focal deficits. Absent: pronater drift, facial droop, speech deficit - Skin Skin exam: Present: dry, intact Internal Medicine: Result - Labs CBC & Chem 7: 02/21/17 03:59 02/21/17 03:59 Labs: Short CBC 02/21/17 Range/Units 03:59 WBC 5.3 D (4.3-11.1) K/mcL Hgb 10.3 L (11.5-15.4) g/dL Hct 33.3 L (35.3-44.9) % Plt Count 227 (140-400) K/mcL BMP 02/21/17 03:59 Sodium 139 Potassium 4.1 Chloride 111 H Carbon Dioxide 21 BUN 22 H Creatinine 1.20 H Glucose 85 Calcium 8.6 - ABG Interpretation ABG results: PT/INR, D-dimer PT 13.1 Seconds (9.4-12.1) H 02/20/17 01:04 EST Consult Discharge Plan - Plan Referrals: Mitchell Farah MD [Primary Care Provider] -
[2017-02-21] MEDS ORDERED: 0.9 % Sodium Chloride 500 ML IVC ONE ×2 (15:12→15:35)
[2017-02-21] MEDS: Naloxone 0.4 MG/ML INJ IVP PRN ×2 (15:19→17:05)
[2017-02-21] MEDS: Ertapenem 1,000 MG in Water for inj. (sterile) 10 ML IVP SCH (15:33)
[2017-02-21] MEDS ORDERED: 0.9 % Sodium Chloride 500 ML ONE (15:47)
[2017-02-21] MEDS: Ipratropium/Albuterol Neb 3 ML IH SCH ×3 (15:56→23:30)
[2017-02-21 15:58] LABS: ABG Base Excess -3 mEq/L (-2 to 3); ABG HCO3 22 mEq/L (21-27); ABG Oxygen Saturation 99 % (95-98); ABG PCO2 42 mmHg (35-45); ABG PH 7.34 pH Units (7.32-7.45); ABG PO2 122 mmHg (85-104); ABG TCO2 24 mEq/L (20-26)
--- NOTE | 2017-02-21 16:51 | Electrocardiograph Report ---
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
[2017-02-21] MEDS: ROTIGOTINE TP SCH (18:46)
[2017-02-22] MEDS: Azithromycin 500 MG in D5% in Water 250 ML IVPB SCH (03:47)
[2017-02-22] MEDS: Ipratropium/Albuterol Neb 3 ML IH SCH ×6 (04:02→23:40)
[2017-02-22 05:53] LABS: Hematocrit 30.9 % (35.3-44.9); Hemoglobin 9.4 g/dL (11.5-15.4); Mean Corpuscular HGB Conc 30.4 g/dL (31.6-35.5); Mean Corpuscular Volume 85.4 fL (83.0-100.0); Mean Platelet Volume 10.3 fL (9.4-12.4); Platelet Count 202 K/mcL (140-400); Red Blood Count 3.62 M/mcL (3.82-4.97)
[2017-02-22 06:07] LABS: BUN/Creatinine Ratio 17 (6-26); Blood Urea Nitrogen 18 mg/dL (7-20); Calcium 8.1 mg/dL (8.6-10.8); Carbon Dioxide 17 mEq/L (19-29); Chloride 115 mEq/L (98-109); Glucose 148 mg/dL (70-99); Osmolality,Calculated 297 (280-300); Potassium 3.9 mEq/L (3.5-4.5); Sodium 141 mEq/L (136-145); eGFR For African Americans > 60 (> 60); eGFR For Non-African Americans 50 (> 60)
[2017-02-22] MEDS: *HR* Heparin 5,000 UNIT/ML VIAL SQ SCH ×2 (06:17→18:23)
[2017-02-22] MEDS ORDERED: Furosemide 20 MG/2 ML VIAL IVP ONE (09:07)
[2017-02-22] MEDS: Carbidopa/Levodopa 25/100 TABLET PO SCH ×4 (09:08→19:45)
[2017-02-22] MEDS: Aspirin Enteric Coated 81 MG Tablet PO SCH (09:08)
[2017-02-22] MEDS: Acetaminophen 325 MG TABLET PO PRN ×2 (09:09→19:44)
[2017-02-22] MEDS: Ertapenem 1,000 MG in Water for inj. (sterile) 10 ML IVP SCH (09:09)
[2017-02-22] MEDS: ROTIGOTINE TP SCH (10:10)
[2017-02-22] MEDS ORDERED: [UNRECOGNIZED DRUG - OTHER] IM SCH (14:15)
[2017-02-22] MEDS ORDERED: OCTREOTIDE IM SCH (14:15)
--- NOTE | 2017-02-22 16:15 | Internal Med Progress Note ---
Date of Encounter: 02/22/17 Time of Encounter: 16:11 - Assessment and plan (1) Sepsis Current Visit: Yes Status: Acute Assessment and plan: Alma Orlando is a 81-year-old female with past medical history Parkinson's, Alzheimer's and colon mass who presented to [facility] on 02/19/2017 from senior care with worsening confusion. She was found to be in sepsis and was admitted for IV ATB was further workup and treatment. 1. Bacteremia: 02/20/2017 2/2 blood cultures positive for Escherichia coli. Continue ertapenem started on admission. Repeat blood cultures 02/23. Infectious disease following 2. UTI: UA indicative of UTI. Received IV Levaquin in ER. Urine culture with Escherichia coli, sensitive to ertapenem. ESBL negative. Continue ertapenem. Infectious disease following 3. Healthcare associated pneumonia: present upon admission. CXR with mild perihilar opacities concerning for pneumonia. Suspect gram-negative pneumonia. Cont ertapenem and azithromycin to cover for gram-negative/atypicals. Respiratory PCR, urinary antigens negative. Repeat CXR with bilateral airspace disease concerning for pulmonary edema or pneumonia. She did receive IV fluids and with crackles on exam however also has wheezing with cough. Difficult to exclude pneumonia and/or pulmonary edema. Give one-time dose IV Lasix. Continue azithromycin for now. Repeat chest x-ray 02 23. 4. Sepsis: Present on admission. Tmax 102.5, HR 101. WBC 10K, lactic acid normal. Secondary to UTI and possible pneumonia. Hemodynamically stable. Continue IV fluids and IV ATB as noted above. 5. SAVAGE: Cr 1.23, previously normal. Secondary to sepsis. Continue IV fluids. Holding home CLARIBEL. Monitor repeat renal function. 6. Metabolic encephalopathy: Presented from [facility] with worsening confusion. Has history of Alzheimer's and baseline mentation alert to self and place. Head CT nonacute, ammonia level normal. Patient continues to wax and wane. Suspect multifactorial with underlying Alzheimer's and acute illness. Mentation appeared to be improved however had an acute change in mental status on 02/21 in the afternoon. Narcan given with no response. She is arousable but difficult to stay awake. Stop home gabapentin, Roxicodone. STAT head CT negative. Brain MRI with evidence of old infarct, otherwise nonacute. Mentation back to baseline on 02/22 7. Parkinson's disease: Per history. Continue home carbidopa/levodopa. 8. Alzheimer's: per hx. 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 DVT prophylaxis: Heparin Qualifiers: Sepsis type: Escherichia coli Qualified Code(s): A41.51 - Sepsis due to Escherichia coli [E. 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 Patient is significantly improved from yesterday evening. Appears to be back to baseline. She complains of pelvis pain that radiates to her legs which is chronic. Says she takes Tylenol for relief. No chest pain, no shortness of breath. - Constitutional Vitals: Temp Pulse Resp BP Pulse Ox 98.2 F 84 16 127/71 97 02/22/17 11:48 02/22/17 11:48 02/22/17 11:48 02/22/17 11:48 02/22/17 11:48 General appearance: Present: A&O X 2, pleasant, no acute distress - Head Head exam: Present: atraumatic, normocephalic - Eye Eye exam: Present: PERRL, conjuntiva pink, sclera anicteric Pupils: Present: PERRL - Neck Neck exam general surgery: Present: supple, trachea midline. Absent: lymphadenopathy - Respiratory Respiratory exam: Present: rales, rhonchi. Absent: accessory muscle use, wheezes - Cardiovascular Cardiovascular exam: Present: RRR, +S1, +S2. Absent: diastolic murmur, gallop, rubs, systolic murmur - GI/Abdominal GI/Abdominal exam: Present: normal bowel sounds, soft, no peritoneal signs. Absent: distended, tenderness - Extremities Exam Extremities exam: Present: warm, radial pulses palpable and symmetrical. Absent : calf tenderness, cyanotic, pedal edema - Neurological Exam Neurological exam: Present: CN II-XII intact, oriented X3, no focal deficits. Absent: pronater drift, facial droop, speech deficit - Skin Skin exam: Present: dry, intact Internal Medicine: Result - Labs CBC & Chem 7: 02/22/17 05:18 02/22/17 05:18 Labs: Short CBC 02/22/17 Range/Units 05:18 WBC 5.7 (4.3-11.1) K/mcL Hgb 9.4 L (11.5-15.4) g/dL Hct 30.9 L (35.3-44.9) % Plt Count 202 (140-400) K/mcL BMP 02/22/17 05:18 Sodium 141 Potassium 3.9 Chloride 115 H Carbon Dioxide 17 L BUN 18 Creatinine 1.06 Glucose 148 H Calcium 8.1 L - ABG Interpretation ABG results: ABG ABG pH 7.34 pH Units (7.32-7.45) 02/21/17 15:55 ABG pCO2 42 mmHg (35-45) 02/21/17 15:55 ABG pO2 122 mmHg (85-104) H 02/21/17 15:55 ABG O2 Saturation 99 % (95-98) H 02/21/17 15:55 PT/INR, D-dimer PT 13.1 Seconds (9.4-12.1) H 02/20/17 01:04 EST - Impressions Impressions Chest X-Ray 02/21/17 15:09 IMPRESSION: Bilateral airspace disease and suspected left pleural effusion. Findings likely represent pulmonary edema, slightly increased since the prior study. Pneumonia could also have this appearance. D/ / Jessica Kennedy Cha, MD / Jessica Kennedy Cha, MD Interpreting Provider: Jessica Kennedy Cha, MD Echocardiogram 02/21/17 15:12 Impressions: LVEF 55%. Normal LV chamber size, wall thickness and function. Grossly normal right ventricular structure and function. Mild mitral regurgitation. No pulmonary hypertension. Left Ventricular Wall Motion: Rest Echo Findings All wall segments showed normal motion. Findings: Study Quality * Technically adequate exam. ECG Findings * Normal sinus rhythm. Left Ventricle * LVEF 55%. * Normal LV chamber size, wall thickness and function. Right Ventricle * Grossly normal right ventricular structure and function. Left Atrium * Mildly dilated left atrium. Right Atrium * Normal right atrial size. Interatrial Septum * Interatrial septum not well evaluated. Aortic Valve * Trileaflet aortic valve. * Mildly thickened aortic valve leaflets. The noncoronary cusp is focally calcified. * No aortic regurgitation. * No aortic stenosis. Mitral Valve * Mildly thickened mitral valve leaflets. * Mild mitral regurgitation, which was somewhat posteriorly directed. * No mitral stenosis. Tricuspid Valve * Normal tricuspid valve structure. * Trace tricuspid regurgitation. * No pulmonary hypertension. Pulmonic Valve * Normal pulmonic valve structure and function. * Trace pulmonic regurgitation. Aorta * Normally sized aortic root. Pericardium * The pericardium appears normal. IVC * Normal IVC dimensions and inspiratory collapse. Pulmonary Artery * Normal visualized portions of the main pulmonary artery. Head CT 02/21/17 15:36 IMPRESSION: No acute intracranial abnormality. No significant change compared to prior. D/ / Lisa Wang MD / Lisa Wang MD Interpreting Provider: Lisa Wang MD Brain MRI 02/21/17 17:13 IMPRESSION: 1. No acute intracranial abnormality pre 2. 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 3. Mild chronic white matter microvascular ischemic changes. 4. Punctate focus of susceptibility artifact in a lateral left frontal gyrus, which may reflect sequela of prior microhemorrhage or a tiny cavernoma. D/ / Gus Silva MD / Gus Silva MD Interpreting Provider: Gus Silva MD Consult Discharge Plan - Plan Referrals: Mitchell Farah MD [Primary Care Provider] -
[2017-02-23] MEDS: Ipratropium/Albuterol Neb 3 ML IH SCH ×5 (03:26→21:08)
[2017-02-23] MEDS: Azithromycin 500 MG in D5% in Water 250 ML IVPB SCH (03:34)
[2017-02-23 05:03] LABS: BUN/Creatinine Ratio 16 (6-26); Blood Urea Nitrogen 15 mg/dL (7-20); Calcium 8.3 mg/dL (8.6-10.8); Carbon Dioxide 21 mEq/L (19-29); Chloride 111 mEq/L (98-109); Glucose 164 mg/dL (70-99); Osmolality,Calculated 298 (280-300); Potassium 4.1 mEq/L (3.5-4.5); Sodium 142 mEq/L (136-145); eGFR For African Americans > 60 (> 60); eGFR For Non-African Americans 57 (> 60)
[2017-02-23 05:06] LABS: Hematocrit 31.2 % (35.3-44.9); Hemoglobin 9.8 g/dL (11.5-15.4); Mean Corpuscular HGB Conc 31.4 g/dL (31.6-35.5); Mean Corpuscular Hemoglobin 26.3 pg (28.0-33.3); Mean Corpuscular Volume 83.6 fL (83.0-100.0); Mean Platelet Volume 10.5 fL (9.4-12.4); Platelet Count 240 K/mcL (140-400); Red Blood Count 3.73 M/mcL (3.82-4.97); Red Cell Distribution Width 15.8 % (11.5-14.5)
[2017-02-23 05:12] LABS: Adenovirus Not Detected (Not Detect); Bordetella Pertussis Not Detected (Not Detect); Chlamydophila pneumoniae Not Detected (Not Detect); Coronavirus 229E Not Detected (Not Detect); Coronavirus HKU1 Not Detected (Not Detect); Coronavirus NL63 Not Detected (Not Detect); Coronavirus OC43 Not Detected (Not Detect); Human Metapneumovirus Not Detected (Not Detect); Human Rhinovirus/Enterovirus Not Detected (Not Detect); Influenza A Subtype 2009 H1 Not Detected (Not Detect); Influenza A Untypeable Not Detected (Not Detect); Influenza B Not Detected (Not Detect); Mycoplasma pneumoniae Not Detected (Not Detect); Parainfluenza Virus 1 Not Detected (Not Detect); Parainfluenza Virus 2 Not Detected (Not Detect); Parainfluenza Virus 3 Not Detected (Not Detect); Parainfluenza Virus 4 Not Detected (Not Detect); Respiratory Syncytial Virus Not Detected (Not Detect)
[2017-02-23] MEDS: *HR* Heparin 5,000 UNIT/ML VIAL SQ SCH ×2 (05:33→18:19)
--- NOTE | 2017-02-23 08:55 | Infectious Disease Progress No ---
Date of Encounter: 02/23/17 Time of Encounter: 15:40 - Assessment and Plan (1) Sepsis Current Visit: Yes Status: Acute The patient had two SIRS criteria plus SAVAGE on admission. Likely secondary to UTI and bacteremia. Improved. The patient has been afebrile. Tachycardia has resolved. SAVAGE resolved. Blood cultures drawn 02/20/17 are positive 2/2 sets for E. coli. Qualifiers: Sepsis type: Escherichia coli Qualified Code(s): A41.51 - Sepsis due to Escherichia coli [E. coli] (2) Bacteremia Current Visit: Yes Status: Acute Causative organism: E. coli, metzger-sensitive. Source likely UTI. The patient reports some dysuria prior to admission. Repeat blood cultures x 2 sets in the AM. Discontinue Ertapenem. Start Levaquin 750mg IV daily. Duration of treatment depends on the clinical picture, but likely 14 days from the first set of negative blood cultures. Since the patient has improved clinically, will likely be able to switch to PO when ready for discharge. Monitor renal function and dose-adjust antibiotics. (3) UTI (urinary tract infection) Current Visit: Yes Status: Acute Causative organism E. coli. Continue antibiotics as above for now. Recommend removing villalba catheter as soon as possible to minimize risk of CAUTI. Qualifiers: Urinary tract infection type: site unspecified Hematuria presence: without hematuria Qualified Code(s): N39.0 - Urinary tract infection, site not specified (4) Healthcare-associated pneumonia Current Visit: Yes Status: Acute CXR shows bilateral perihilar opacities concerning for possible PNA. The patient does not relate any symptoms related to PNA at this time. Repeat CXR in the AM. Discontinue zithromax. Antibiotic recommendations as above. (5) SAVAGE (acute kidney injury) Current Visit: Yes Status: Acute Likely secondary to sepis. Continue to trend. Dose-adjust antibiotics. Avoid nephrotoxins as able. 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 Diagnosed in 2016, but no additional biopsy or surgery done due to the patient' s comorbid conditions and the patient's preference. Gets monthly Sandostatin injections. - Subjective Interval history: Patient seen and examined. No acute events noted overnight. Patient more alert this afternoon. Denies acute pain at this time. Denies fevers, chills, or rigors. Denies chest pain, shortness of breath, or cough. Denies nausea, vomiting, or diarrhea. Reports loose stool today. Denies abdominal pain and states her appetite is good. Villalba catheter draining clear yellow urine. Complains of chronic bilateral feet pain. Infect Dis PN-Objective Data - Labs CBC & Chem 7: 02/23/17 04:28 02/23/17 04:28 Labs: Laboratory Results - last 24 hr 02/21/17 02/22/17 02/22/17 21:19 07:35 11:42 WBC RBC Hgb Hct MCV MCH MCHC RDW Plt Count MPV Sodium Potassium Chloride Carbon Dioxide BUN Creatinine Est GFR ( Amer) Est GFR (Non-Af Amer) BUN/Creatinine Ratio Glucose POC Glucose 135 H 90 H 152 H Calculated Osmolality Calcium Chlamy pneumoniae PCR Adenovirus (PCR) B. pertussis DNA (PCR) Coronavirus OC43 (PCR) Coronavirus HKU1 (PCR) Coronavirus 229E (PCR) Coronavirus NL63 (PCR) Human Metapneumovir PCR Influenza A (H1) PCR Influ A (H1N1/09) PCR Influenza A (H3) PCR Influenza A Untype (PCR) Influenza Type B (PCR) M.pneumoniae DNA (PCR) Parainfluenza 1 (PCR) Parainfluenza 2 (PCR) Parainfluenza 3 (PCR) Parainfluenza 4 (PCR) RSV (PCR) Entero/Rhino (PCR) 02/22/17 02/22/17 02/23/17 16:19 20:37 03:47 WBC RBC Hgb Hct MCV MCH MCHC RDW Plt Count MPV Sodium Potassium Chloride Carbon Dioxide BUN Creatinine Est GFR ( Amer) Est GFR (Non-Af Amer) BUN/Creatinine Ratio Glucose POC Glucose 153 H 143 H Calculated Osmolality Calcium Chlamy pneumoniae PCR Not Detected Adenovirus (PCR) Not Detected B. pertussis DNA (PCR) Not Detected Coronavirus OC43 (PCR) Not Detected Coronavirus HKU1 (PCR) Not Detected Coronavirus 229E (PCR) Not Detected Coronavirus NL63 (PCR) Not Detected Human Metapneumovir PCR Not Detected Influenza A (H1) PCR Not Detected Influ A (H1N1/09) PCR Not Detected Influenza A (H3) PCR Not Detected Influenza A Untype (PCR) Not Detected Influenza Type B (PCR) Not Detected M.pneumoniae DNA (PCR) Not Detected Parainfluenza 1 (PCR) Not Detected Parainfluenza 2 (PCR) Not Detected Parainfluenza 3 (PCR) Not Detected Parainfluenza 4 (PCR) Not Detected RSV (PCR) Not Detected Entero/Rhino (PCR) Not Detected 02/23/17 02/23/17 04:28 04:28 WBC 7.9 RBC 3.73 L Hgb 9.8 L Hct 31.2 L MCV 83.6 MCH 26.3 L MCHC 31.4 L RDW 15.8 H Plt Count 240 MPV 10.5 Sodium 142 Potassium 4.1 Chloride 111 H Carbon Dioxide 21 BUN 15 Creatinine 0.95 Est GFR ( Amer) > 60 Est GFR (Non-Af Amer) 57 L BUN/Creatinine Ratio 16 Glucose 164 H POC Glucose Calculated Osmolality 298 Calcium 8.3 L Chlamy pneumoniae PCR Adenovirus (PCR) B. pertussis DNA (PCR) Coronavirus OC43 (PCR) Coronavirus HKU1 (PCR) Coronavirus 229E (PCR) Coronavirus NL63 (PCR) Human Metapneumovir PCR Influenza A (H1) PCR Influ A (H1N1/09) PCR Influenza A (H3) PCR Influenza A Untype (PCR) Influenza Type B (PCR) M.pneumoniae DNA (PCR) Parainfluenza 1 (PCR) Parainfluenza 2 (PCR) Parainfluenza 3 (PCR) Parainfluenza 4 (PCR) RSV (PCR) Entero/Rhino (PCR) Cultures: Serology 02/23/17 02/20/17 Range/Units 03:47 18:40 Chlamy pneumoniae PCR Not Detected Not Detected (Not Detect) Adenovirus (PCR) Not Detected Not Detected (Not Detect) B. pertussis DNA (PCR) Not Detected Not Detected (Not Detect) Coronavirus OC43 (PCR) Not Detected Not Detected (Not Detect) Coronavirus HKU1 (PCR) Not Detected Not Detected (Not Detect) Coronavirus 229E (PCR) Not Detected Not Detected (Not Detect) Coronavirus NL63 (PCR) Not Detected Not Detected (Not Detect) Human Metapneumovir PCR Not Detected Not Detected (Not Detect) Influenza A (H1) PCR Not Detected Not Detected (Not Detect) Influ A (H1N1/09) PCR Not Detected Not Detected (Not Detect) Influenza A (H3) PCR Not Detected Not Detected (Not Detect) Influenza A Untype (PCR) Not Detected Not Detected (Not Detect) Influenza Type B (PCR) Not Detected Not Detected (Not Detect) M.pneumoniae DNA (PCR) Not Detected Not Detected (Not Detect) Parainfluenza 1 (PCR) Not Detected Not Detected (Not Detect) Parainfluenza 2 (PCR) Not Detected Not Detected (Not Detect) Parainfluenza 3 (PCR) Not Detected Not Detected (Not Detect) Parainfluenza 4 (PCR) Not Detected Not Detected (Not Detect) RSV (PCR) Not Detected Not Detected (Not Detect) Entero/Rhino (PCR) Not Detected Not Detected (Not Detect) - Impressions Impressions Echocardiogram 02/21/17 15:12 Impressions: LVEF 55%. Normal LV chamber size, wall thickness and function. Grossly normal right ventricular structure and function. Mild mitral regurgitation. No pulmonary hypertension. Left Ventricular Wall Motion: Rest Echo Findings All wall segments showed normal motion. Findings: Study Quality * Technically adequate exam. ECG Findings * Normal sinus rhythm. Left Ventricle * LVEF 55%. * Normal LV chamber size, wall thickness and function. Right Ventricle * Grossly normal right ventricular structure and function. Left Atrium * Mildly dilated left atrium. Right Atrium * Normal right atrial size. Interatrial Septum * Interatrial septum not well evaluated. Aortic Valve * Trileaflet aortic valve. * Mildly thickened aortic valve leaflets. The noncoronary cusp is focally calcified. * No aortic regurgitation. * No aortic stenosis. Mitral Valve * Mildly thickened mitral valve leaflets. * Mild mitral regurgitation, which was somewhat posteriorly directed. * No mitral stenosis. Tricuspid Valve * Normal tricuspid valve structure. * Trace tricuspid regurgitation. * No pulmonary hypertension. Pulmonic Valve * Normal pulmonic valve structure and function. * Trace pulmonic regurgitation. Aorta * Normally sized aortic root. Pericardium * The pericardium appears normal. IVC * Normal IVC dimensions and inspiratory collapse. Pulmonary Artery * Normal visualized portions of the main pulmonary artery. Chest X-Ray 02/23/17 07:00 IMPRESSION: Overall improvement of bilateral perihilar and left basilar opacities. D/ / Lilly Gottlieb MD / Lilly Gottlieb MD Interpreting Provider: Lilly Gottlieb MD Exam - Constitutional Vitals: Temp Pulse Resp BP Pulse Ox 97.7 F 77 16 121/74 97 02/23/17 07:39 02/23/17 07:39 02/23/17 08:01 02/23/17 07:39 02/23/17 08:01 General appearance: average body habitus, cooperative, no acute distress - Head Head exam: Present: atraumatic, normal inspection, normocephalic - Eye Eye exam: Present: EOMI, normal appearance, PERRL Pupils: Present: normal accommodation - ENT ENT exam: Present: mucous membranes moist - Neck Neck exam: Present: normal inspection - Respiratory Respiratory exam: Present: CTAB. Absent: rales, respiratory distress, rhonchi, wheezes - Cardiovascular Cardiovascular exam: Present: RRR, +S1, +S2 - GI/Abdominal GI/Abdominal exam: Present: normal bowel sounds, soft. Absent: distended, tenderness Additional comments: Villalba catheter draining clear yellow urine. - Extremities Exam Extremities exam: Present: normal inspection. Absent: joint swelling, pedal edema, tenderness - Neurological Exam Neurological exam: Present: alert, oriented X3, no focal deficits - Psychiatric Psychiatric exam: Present: normal affect, normal mood - Skin Skin exam: Present: dry, intact, normal color, warm Consult Discharge Plan - Plan Referrals: Mitchell Farah MD [Primary Care Provider] -
[2017-02-23] MEDS: 0.9 % Sodium Chloride 1,000 ML IVC SCH (08:57)
[2017-02-23] MEDS: Gabapentin 400 MG CAPSULE PO SCH (08:57)
[2017-02-23] MEDS: Ertapenem 1,000 MG in Water for inj. (sterile) 10 ML IVP SCH (09:20)
[2017-02-23] MEDS ORDERED: Levofloxacin 750 MG/150 ML 750 MG/150 ML BAG IVPB SCH (10:00)
[2017-02-23] MEDS: ROTIGOTINE TP SCH (10:01)
[2017-02-23] MEDS: Aspirin Enteric Coated 81 MG Tablet PO SCH (10:02)
[2017-02-23] MEDS: Carbidopa/Levodopa 25/100 TABLET PO SCH ×4 (10:02→21:27)
--- NOTE | 2017-02-23 13:12 | Discharge Summary ---
Date of Encounter: 02/23/17 Time of Encounter: 12:43 - Discharge Diagnosis (1) Sepsis Priority: Primary Status: Acute Comments: Alma Orlando is a 81-year-old female with past medical history Parkinson's, Alzheimer's and colon mass who presented to [facility] on 02/19/2017 from senior living with worsening confusion. She was found to be in sepsis and was admitted for IV ATB was further workup and treatment. 1. Bacteremia: 02/20/2017 2/2 blood cultures positive for Escherichia coli. Ertapenem started on admission. Changed to Levaquin. Repeat blood cultures 02/23. Infectious disease following 2. UTI: UA indicative of UTI. Received IV Levaquin in ER. Urine culture with Escherichia coli, sensitive to ertapenem. ESBL negative. Changed to Levaquin. Infectious disease following 3. Healthcare associated pneumonia: present upon admission. CXR with mild perihilar opacities concerning for pneumonia. Suspect gram-negative pneumonia. Cont ertapenem and azithromycin to cover for gram-negative/atypicals. Respiratory PCR, urinary antigens negative. Repeat CXR with bilateral airspace disease concerning for pulmonary edema or pneumonia. She did receive IV fluids and with crackles on exam however also has wheezing with cough. Difficult to exclude pneumonia and/or pulmonary edema. Received one-time dose IV Lasix. Repeat chest x-ray 02/23 with improved opacities. Cont Levaquin 4. Sepsis: Present on admission. Tmax 102.5, HR 101. WBC 10K, lactic acid normal. Secondary to UTI and possible pneumonia. Hemodynamically stable. Now resolved 5. SAVAGE: Cr 1.23, previously normal. Secondary to sepsis. Continue IV fluids. Holding home CLARIBEL. 6. Metabolic encephalopathy: Presented from [facility] with worsening confusion. Has history of Alzheimer's and baseline mentation alert to self and place. Head CT nonacute, ammonia level normal. Patient continues to wax and wane. Suspect multifactorial with underlying Alzheimer's and acute illness. Mentation appeared to be improved however had an acute change in mental status on 02/21 in the afternoon. Narcan given with no response. She is arousable but difficult to stay awake. Stop home gabapentin, Roxicodone. STAT head CT negative. Brain MRI with evidence of old infarct, otherwise nonacute. Mentation back to baseline on 02/22 7. Parkinson's disease: Per history. Continue home carbidopa/levodopa. 8. Alzheimer's: per hx. 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 DVT prophylaxis: Heparin Qualifiers: Sepsis type: Escherichia coli Qualified Code(s): A41.51 - Sepsis due to Escherichia coli [E. coli] (2) SAVAGE (acute kidney injury) Priority: Primary Status: Acute (3) Malignant carcinoid tumor of the ileum Priority: Primary Status: Chronic (4) Metabolic encephalopathy Priority: Primary Status: Acute (5) Parkinsons disease Priority: Primary Status: Chronic - Discharge Medications Home Medications: Carbidopa/Levodopa [Carbidopa-Levodopa 25-100 Tab] 1 tab PO QID 03/15/16 [ History] Rotigotine [Neupro] 1 each TD DAILY 03/15/16 [History] Polyethylene Glycol 3350 [MiraLAX] 17 gm PO DAILY #14 powd.pack 03/18/16 [Rx] Acetaminophen [Tylenol] 650 mg PO Q4-6H PRN 08/03/16 [History] Lisinopril [Zestril] 5 mg PO DAILY 08/03/16 [History] Oxycodone HCl [Oxaydo] 5 mg PO QID PRN 08/03/16 [History] Sennosides/Docusate Sodium [Senna Plus] 1 each PO BID 08/03/16 [History] Aspirin [Lo-Dose Aspirin EC] 81 mg PO DAILY 11/02/16 [History] Ipratropium/Albuterol Neb [Duoneb] 3 ml IH QID PRN 11/02/16 [History] Mv-Mn/FA/Vit K1/Lycop/Lut/Zeax [Ocuvite Eye + Multi Tablet] 1 each PO DAILY [History] Octreotide Acetate (LAR) [Sandostatin Lar] 20 mg IM QMONTH #6 kit 02/15/17 [Rx] Carbidopa/Levodopa 25/100 [Sinemet 25/100] 2 each PO HS 02/20/17 [History] Gabapentin [Neurontin] 400 mg PO TID 02/20/17 [History] Loratadine [Claritin] 10 mg PO DAILY 02/20/17 [History] Allergies/Adverse Reactions: 3 Allergy/AdvReac Type Severity Reaction Status Date / Time cephalexin [From Keflex] Allergy Rash Verified 11/02/16 13:49 Procedures/tests Complete & Pending: Procedures Performed prior 72 hours Category Date Time Status CT head/brain wo con [CT] Routine Cat Scan 02/21/17 15:36 Completed MR head/brain wo con [MR] Stat MRI 02/21/17 17:13 Completed EV echocardiogram Routine Y 02/21/17 15:12 Completed Date of admission: 02/20/17 02:43 Primary care physician: Mitchell Farah MD Consults: 02/20/17 11:23 Consult to Dispersion Mixer [CONS] Routine Reason for SW Consult: return to signature 02/20/17 16:45 Consult to Infectious Diseases [CONS] Routine Consulting Provider: Infectious Disease [facility] Reason for Consult: bacteremia, UTI Call Completed: Yes Discharging clinician: Ana Whitaker Anticipated date of discharge: 02/23/17 - Patient Status Disposition: Transfer LTC Condition: Good Functional capacity at discharge: uses cane/walker Overall status at discharge: patient is back to baseline - Discharge Instructions Follow Up With: Mitchell Farah MD [Primary Care Provider] - - Diet and Activity Activity: as per physical therapy Diet: advance to your usual diet Interval History: Seen and examined at bedside, she appears significantly improved and back to baseline. Discussed with ID and will keep overnight, repeat blood cultures are pending and would like to see negative culture for discharge. Patient and son at bedside was updated. She has no complaints. Says she feels much better. She would like to be discharged but she is agreeable to say. Hospital course: Ms. Orlando is a 81 year old female - Time Spent with Patient Total time spent providing and/or coordinating discharge services: - Constitutional Vitals: Temp Pulse Resp BP Pulse Ox 97.4 F L 83 16 136/84 97 02/23/17 10:43 02/23/17 10:43 02/23/17 11:35 02/23/17 10:43 02/23/17 11:35 General appearance: Present: A&O X 2, pleasant, no acute distress - Head Head exam: Present: atraumatic, normocephalic - Eye Eye exam: Present: PERRL, conjuntiva pink, sclera anicteric Pupils: Present: PERRL - Neck Neck exam general surgery: Present: supple, trachea midline. Absent: lymphadenopathy - Respiratory Respiratory exam: Present: CTAB. Absent: accessory muscle use, rales, rhonchi, wheezes - Cardiovascular Cardiovascular exam: Present: RRR, +S1, +S2. Absent: diastolic murmur, gallop, rubs, systolic murmur - GI/Abdominal GI/Abdominal exam: Present: normal bowel sounds, soft, no peritoneal signs. Absent: distended, tenderness - Extremities Exam Extremities exam: Present: warm, radial pulses palpable and symmetrical. Absent : calf tenderness, cyanotic, pedal edema - Neurological Exam Neurological exam: Present: CN II-XII intact, oriented X3, no focal deficits. Absent: pronater drift, facial droop, speech deficit - Skin Skin exam: Present: dry, intact
--- NOTE | 2017-02-23 13:35 | Infectious Disease Progress No ---
Date of Encounter: 02/23/17 Time of Encounter: 13:33 - Assessment and Plan (1) Sepsis Current Visit: Yes Status: Acute The patient had two SIRS criteria plus SAVAGE on admission. Likely secondary to UTI and bacteremia. Improved. The patient has been afebrile. Tachycardia has resolved. SAVAGE resolved. Blood cultures drawn 02/20/17 are positive 2/2 sets for E. coli. Repeat blood cultures drawn 02/23/17 are pending x 2 sets. Qualifiers: Sepsis type: Escherichia coli Qualified Code(s): A41.51 - Sepsis due to Escherichia coli [E. coli] (2) Bacteremia Current Visit: Yes Status: Acute Causative organism: E. coli, metzger-sensitive. Source likely UTI. The patient reports some dysuria prior to admission. Repeat blood cultures x 2 sets drawn 02/23/17 are pending x 2 sets. Continue Levaquin 750mg IV daily. Duration of treatment depends on the clinical picture, but likely 14 days from the first set of negative blood cultures. Since the patient has improved clinically, will likely be able to switch to PO when ready for discharge. Monitor renal function and dose-adjust antibiotics. (3) UTI (urinary tract infection) Current Visit: Yes Status: Acute Causative organism E. coli. Continue antibiotics as above. Qualifiers: Urinary tract infection type: site unspecified Hematuria presence: without hematuria Qualified Code(s): N39.0 - Urinary tract infection, site not specified (4) Healthcare-associated pneumonia Current Visit: Yes Status: Acute CXR shows bilateral perihilar opacities concerning for possible PNA. The patient does not relate any symptoms related to PNA at this time. Repeat CXR improved. Antibiotic recommendations as above. (5) SAVAGE (acute kidney injury) Current Visit: Yes Status: Resolved Likely secondary to sepis. Continue to trend. Dose-adjust antibiotics. Avoid nephrotoxins as able. 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 Diagnosed in 2016, but no additional biopsy or surgery done due to the patient' s comorbid conditions and the patient's preference. Gets monthly Sandostatin injections. - Subjective Interval history: Patient seen and examined. No acute events noted overnight. Denies acute pain at this time. Denies fevers, chills, or rigors. Denies chest pain, shortness of breath, or cough. Denies nausea, vomiting, or diarrhea. Reports loose stool today. Denies abdominal pain and states her appetite is good. Bishop catheter draining clear yellow urine. Infect Dis PN-Objective Data - Labs CBC & Chem 7: 02/23/17 04:28 02/23/17 04:28 Labs: Laboratory Results - last 24 hr 02/21/17 02/22/17 02/22/17 21:19 07:35 11:42 WBC RBC Hgb Hct MCV MCH MCHC RDW Plt Count MPV Sodium Potassium Chloride Carbon Dioxide BUN Creatinine Est GFR ( Amer) Est GFR (Non-Af Amer) BUN/Creatinine Ratio Glucose POC Glucose 135 H 90 H 152 H Calculated Osmolality Calcium Chlamy pneumoniae PCR Adenovirus (PCR) B. pertussis DNA (PCR) Coronavirus OC43 (PCR) Coronavirus HKU1 (PCR) Coronavirus 229E (PCR) Coronavirus NL63 (PCR) Human Metapneumovir PCR Influenza A (H1) PCR Influ A (H1N1/09) PCR Influenza A (H3) PCR Influenza A Untype (PCR) Influenza Type B (PCR) M.pneumoniae DNA (PCR) Parainfluenza 1 (PCR) Parainfluenza 2 (PCR) Parainfluenza 3 (PCR) Parainfluenza 4 (PCR) RSV (PCR) Entero/Rhino (PCR) 02/22/17 02/22/17 02/23/17 16:19 20:37 03:47 WBC RBC Hgb Hct MCV MCH MCHC RDW Plt Count MPV Sodium Potassium Chloride Carbon Dioxide BUN Creatinine Est GFR ( Amer) Est GFR (Non-Af Amer) BUN/Creatinine Ratio Glucose POC Glucose 153 H 143 H Calculated Osmolality Calcium Chlamy pneumoniae PCR Not Detected Adenovirus (PCR) Not Detected B. pertussis DNA (PCR) Not Detected Coronavirus OC43 (PCR) Not Detected Coronavirus HKU1 (PCR) Not Detected Coronavirus 229E (PCR) Not Detected Coronavirus NL63 (PCR) Not Detected Human Metapneumovir PCR Not Detected Influenza A (H1) PCR Not Detected Influ A (H1N1/09) PCR Not Detected Influenza A (H3) PCR Not Detected Influenza A Untype (PCR) Not Detected Influenza Type B (PCR) Not Detected M.pneumoniae DNA (PCR) Not Detected Parainfluenza 1 (PCR) Not Detected Parainfluenza 2 (PCR) Not Detected Parainfluenza 3 (PCR) Not Detected Parainfluenza 4 (PCR) Not Detected RSV (PCR) Not Detected Entero/Rhino (PCR) Not Detected 02/23/17 02/23/17 04:28 04:28 WBC 7.9 RBC 3.73 L Hgb 9.8 L Hct 31.2 L MCV 83.6 MCH 26.3 L MCHC 31.4 L RDW 15.8 H Plt Count 240 MPV 10.5 Sodium 142 Potassium 4.1 Chloride 111 H Carbon Dioxide 21 BUN 15 Creatinine 0.95 Est GFR ( Amer) > 60 Est GFR (Non-Af Amer) 57 L BUN/Creatinine Ratio 16 Glucose 164 H POC Glucose Calculated Osmolality 298 Calcium 8.3 L Chlamy pneumoniae PCR Adenovirus (PCR) B. pertussis DNA (PCR) Coronavirus OC43 (PCR) Coronavirus HKU1 (PCR) Coronavirus 229E (PCR) Coronavirus NL63 (PCR) Human Metapneumovir PCR Influenza A (H1) PCR Influ A (H1N1/09) PCR Influenza A (H3) PCR Influenza A Untype (PCR) Influenza Type B (PCR) M.pneumoniae DNA (PCR) Parainfluenza 1 (PCR) Parainfluenza 2 (PCR) Parainfluenza 3 (PCR) Parainfluenza 4 (PCR) RSV (PCR) Entero/Rhino (PCR) Cultures: Serology 02/23/17 02/20/17 Range/Units 03:47 18:40 Chlamy pneumoniae PCR Not Detected Not Detected (Not Detect) Adenovirus (PCR) Not Detected Not Detected (Not Detect) B. pertussis DNA (PCR) Not Detected Not Detected (Not Detect) Coronavirus OC43 (PCR) Not Detected Not Detected (Not Detect) Coronavirus HKU1 (PCR) Not Detected Not Detected (Not Detect) Coronavirus 229E (PCR) Not Detected Not Detected (Not Detect) Coronavirus NL63 (PCR) Not Detected Not Detected (Not Detect) Human Metapneumovir PCR Not Detected Not Detected (Not Detect) Influenza A (H1) PCR Not Detected Not Detected (Not Detect) Influ A (H1N1/09) PCR Not Detected Not Detected (Not Detect) Influenza A (H3) PCR Not Detected Not Detected (Not Detect) Influenza A Untype (PCR) Not Detected Not Detected (Not Detect) Influenza Type B (PCR) Not Detected Not Detected (Not Detect) M.pneumoniae DNA (PCR) Not Detected Not Detected (Not Detect) Parainfluenza 1 (PCR) Not Detected Not Detected (Not Detect) Parainfluenza 2 (PCR) Not Detected Not Detected (Not Detect) Parainfluenza 3 (PCR) Not Detected Not Detected (Not Detect) Parainfluenza 4 (PCR) Not Detected Not Detected (Not Detect) RSV (PCR) Not Detected Not Detected (Not Detect) Entero/Rhino (PCR) Not Detected Not Detected (Not Detect) - Impressions Impressions Chest X-Ray 02/23/17 07:00 IMPRESSION: Overall improvement of bilateral perihilar and left basilar opacities. D/ / Lilly Gottlieb MD / Lilly Gottlieb MD Interpreting Provider: Lilly Gottlieb MD Exam - Constitutional Vitals: Temp Pulse Resp BP Pulse Ox 97.4 F L 83 16 136/84 97 02/23/17 10:43 02/23/17 10:43 02/23/17 11:35 02/23/17 10:43 02/23/17 11:35 General appearance: average body habitus, cooperative, no acute distress - Head Head exam: Present: atraumatic, normal inspection, normocephalic - Eye Eye exam: Present: EOMI, normal appearance, PERRL Pupils: Present: normal accommodation - ENT ENT exam: Present: mucous membranes moist - Neck Neck exam: Present: normal inspection - Respiratory Respiratory exam: Present: CTAB. Absent: rales, respiratory distress, rhonchi, wheezes - Cardiovascular Cardiovascular exam: Present: RRR, +S1, +S2 - GI/Abdominal GI/Abdominal exam: Present: normal bowel sounds, soft. Absent: distended, tenderness - Extremities Exam Extremities exam: Present: normal inspection. Absent: joint swelling, pedal edema, tenderness - Neurological Exam Neurological exam: Present: alert, oriented X3, no focal deficits - Psychiatric Psychiatric exam: Present: normal affect, normal mood - Skin Skin exam: Present: dry, intact, normal color, warm Consult Discharge Plan - Plan Referrals: Mitchell Farah MD [Primary Care Provider] -
[2017-02-24] MEDS: Ipratropium/Albuterol Neb 3 ML IH SCH ×4 (00:44→11:32)
[2017-02-24 06:23] LABS: Hematocrit 32.1 % (35.3-44.9); Hemoglobin 10.1 g/dL (11.5-15.4); Mean Corpuscular HGB Conc 31.5 g/dL (31.6-35.5); Mean Corpuscular Hemoglobin 25.7 pg (28.0-33.3); Mean Corpuscular Volume 81.7 fL (83.0-100.0); Mean Platelet Volume 10.9 fL (9.4-12.4); Platelet Count 253 K/mcL (140-400); Red Blood Count 3.93 M/mcL (3.82-4.97); Red Cell Distribution Width 15.7 % (11.5-14.5)
[2017-02-24] MEDS: *HR* Heparin 5,000 UNIT/ML VIAL SQ SCH (06:27)
[2017-02-24 06:39] LABS: BUN/Creatinine Ratio 16 (6-26); Blood Urea Nitrogen 14 mg/dL (7-20); Calcium 8.9 mg/dL (8.6-10.8); Carbon Dioxide 22 mEq/L (19-29); Chloride 110 mEq/L (98-109); Glucose 89 mg/dL (70-99); Osmolality,Calculated 294 (280-300); Sodium 142 mEq/L (136-145); eGFR For African Americans > 60 (> 60); eGFR For Non-African Americans > 60 (> 60)
[2017-02-24 06:40] LABS: Potassium 4.5 mEq/L (3.5-4.5)
[2017-02-24] MEDS: Aspirin Enteric Coated 81 MG Tablet PO SCH (08:18)
[2017-02-24] MEDS: Carbidopa/Levodopa 25/100 TABLET PO SCH ×2 (08:18→13:11)
[2017-02-24] MEDS: ROTIGOTINE TP SCH (08:18)
[2017-02-24] MEDS: Acetaminophen 325 MG TABLET PO PRN (08:30)
[2017-02-24 10:22] VITALS: BP 114/67
--- NOTE | 2017-02-24 12:19 | Discharge Summary ---
Date of Encounter: 02/24/17 Time of Encounter: 12:03 - Discharge Diagnosis (1) Sepsis Priority: Primary Status: Acute Comments: Alma Orlando is a 81-year-old female with past medical history Parkinson's, Alzheimer's and colon mass who [facility]. She was found to be in sepsis and was admitted for IV ATB was further workup and treatment. Hospital course prolonged due to bacteremia and need for IV ATB. She was discharged back to [facility] on 02/24/2017 and stable condition. 1. E. coli bacteremia: 2/2 admission blood cultures positive for Escherichia coli; metzger-sensitive. Ertapenem started on admission, changed to Levaquin. Evaluated by infectious disease who recommended continuing Levaquin for 14 days from the first set of negative blood cultures. 02/23/2017 repeat blood cultures no growth. Continue Levaquin through 03/09. 2. UTI: urine culture with Escherichia coli, ESBL negative. Continue Levaquin as noted above. 3. Healthcare associated pneumonia: present upon admission. CXR with mild perihilar opacities concerning for pneumonia. Initially treated with ertapenem and azithromycin to cover for gram-negative/atypicals. Respiratory PCR, urinary antigens negative. Repeat CXR with bilateral airspace disease concerning for pulmonary edema or pneumonia. She did receive IV fluids and with crackles on exam however also has wheezing with cough. Suspect component of pulmonary edema with pneumonia. Symptoms significantly improved with one- time dose IV Lasix and ATB. Repeat chest x-ray 02/23 with improved opacities. Cont Levaquin as noted above. 4. Sepsis: Present on admission. Tmax 102.5, HR 101. WBC 10K, lactic acid normal. Secondary to UTI and possible pneumonia. Hemodynamically stable. Now resolved 5. SAVAGE: Cr 1.23, previously normal. Secondary to sepsis. Cr normalized with holding home CLARIBEL and IV fluids. CLARIBEL resumed at discharge. Recommend repeat CMP within 1 week. 6. Metabolic encephalopathy: Presented from [facility] with worsening confusion. History of Alzheimer's and baseline mentation alert to self and place. Head CT and brain MRI non-acute Ammonia level and ABGs normal. Mentation waxed and waned while inpatient. Likely multifactorial with underlying Alzheimer's, sepsis and UTI. Mentation improved to baseline prior to discharge. 7. Parkinson's disease: Per history. Continue home carbidopa/levodopa. 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 Chronic back pain: per patient reported history. On oxycodone IR 4 times a day ECF. Pain has been controlled with Tylenol while inpatient. She had an episode of lethargy/drowsiness after receiving oxycodone while inpatient. Continue Tylenol at discharge. Defer resuming oxycodone to ECF physician. Qualifiers: Sepsis type: Escherichia coli Qualified Code(s): A41.51 - Sepsis due to Escherichia coli [E. coli] (2) SAVAGE (acute kidney injury) Priority: Primary Status: Resolved (3) Malignant carcinoid tumor of the ileum Priority: Primary Status: Chronic (4) Metabolic encephalopathy Priority: Primary Status: Acute (5) Parkinsons disease Priority: Primary Status: Chronic (6) E coli bacteremia Priority: Primary Status: Acute - Discharge Medications Prescriptions: levoFLOXacin [Levaquin] 750 mg PO Q48H #14 tablet Home Medications: Carbidopa/Levodopa [Carbidopa-Levodopa 25-100 Tab] 1 tab PO QID 03/15/16 [ History] Rotigotine [Neupro] 1 each TD DAILY 03/15/16 [History] Polyethylene Glycol 3350 [MiraLAX] 17 gm PO DAILY #14 powd.pack 03/18/16 [Rx] Acetaminophen [Tylenol] 650 mg PO Q4-6H PRN 08/03/16 [History] Lisinopril [Zestril] 5 mg PO DAILY 08/03/16 [History] Sennosides/Docusate Sodium [Senna Plus] 1 each PO BID 08/03/16 [History] Aspirin [Lo-Dose Aspirin EC] 81 mg PO DAILY 11/02/16 [History] Ipratropium/Albuterol Neb [Duoneb] 3 ml IH QID PRN 11/02/16 [History] Mv-Mn/FA/Vit K1/Lycop/Lut/Zeax [Ocuvite Eye + Multi Tablet] 1 each PO DAILY [History] Octreotide Acetate (LAR) [Sandostatin Lar] 20 mg IM QMONTH #6 kit 02/15/17 [Rx] Carbidopa/Levodopa 25/100 [Sinemet 25/100] 2 each PO HS 02/20/17 [History] Gabapentin [Neurontin] 400 mg PO TID 02/20/17 [History] Loratadine [Claritin] 10 mg PO DAILY 02/20/17 [History] levoFLOXacin [Levaquin] 750 mg PO Q48H #14 tablet 02/24/17 [Rx] Allergies/Adverse Reactions: 3 Allergy/AdvReac Type Severity Reaction Status Date / Time cephalexin [From Keflex] Allergy Rash Verified 11/02/16 13:49 Procedures/tests Complete & Pending: Procedures Performed prior 72 hours Category Date Time Status CT head/brain wo con [CT] Routine Cat Scan 02/21/17 15:36 Completed MR head/brain wo con [MR] Stat MRI 02/21/17 17:13 Completed EV echocardiogram Routine Y 02/21/17 15:12 Completed Date of admission: 02/20/17 02:43 Primary care physician: Mitchell Farah MD Consults: 02/20/17 11:23 Consult to Mask Designer [CONS] Routine Reason for SW Consult: return to [facility] 02/20/17 16:45 Consult to Infectious Diseases [CONS] Routine Consulting Provider: [facility] [place] Reason for Consult: bacteremia, UTI Call Completed: Yes Discharging clinician: Ana Whitaker Anticipated date of discharge: 02/24/17 - Patient Status Disposition: Transfer LTC Condition: Good Functional capacity at discharge: wheelchair bound Overall status at discharge: patient is back to baseline - Discharge Instructions Instructions: Pneumonia (DC), Urinary Tract Infection in Women (DC), Sepsis (DC ) Follow Up With: Mitchell Farah MD [Primary Care Provider] - - Diet and Activity Activity: as per physical therapy Diet: advance to your usual diet Interval History: A bedside. Patient appears significantly improved and would like to discharged back to [facility] today. Says she feels much better. No chest pain or shortness of breath. She still has intermittent low back pain but says it is controlled with Tylenol. No new changes in assessment to report. Hospital course: See assessment and plan for hospital course. - Time Spent with Patient Total time spent providing and/or coordinating discharge services: Greater than 30 minutes (48 minutes spent on discharge) - Constitutional Vitals: Temp Pulse Resp BP Pulse Ox 99.5 F 85 16 114/67 91 02/24/17 10:20 11/09/17 10:20 02/24/17 10:20 02/24/17 10:20 02/24/17 10:20 General appearance: Present: A&O X 2, pleasant, no acute distress - Head Head exam: Present: atraumatic, normocephalic - Eye Eye exam: Present: PERRL, conjuntiva pink, sclera anicteric Pupils: Present: PERRL - Neck Neck exam general surgery: Present: supple, trachea midline. Absent: lymphadenopathy - Respiratory Respiratory exam: Present: CTAB. Absent: accessory muscle use, rales, rhonchi, wheezes - Cardiovascular Cardiovascular exam: Present: RRR, +S1, +S2. Absent: diastolic murmur, gallop, rubs, systolic murmur - GI/Abdominal GI/Abdominal exam: Present: normal bowel sounds, soft, no peritoneal signs. Absent: distended, tenderness - Extremities Exam Extremities exam: Present: warm, radial pulses palpable and symmetrical. Absent : calf tenderness, cyanotic, pedal edema - Neurological Exam Neurological exam: Present: CN II-XII intact, oriented X3, no focal deficits. Absent: pronater drift, facial droop, speech deficit - Skin Skin exam: Present: dry, intact
--- NOTE | 2017-02-24 12:30 | Physician Discharge Referral ---
ExtendedCare Referral Info Transfer To: [facility] Provider in Charge: Ana Whitaker CNP Provider in Charge after Transfer: PCP, Other Institutional Level of Care: Skilled - Diagnosis (1) Sepsis Status: Acute (2) SAVAGE (acute kidney injury) Status: Resolved (3) Malignant carcinoid tumor of the ileum Status: Chronic (4) Metabolic encephalopathy Status: Acute (5) Parkinsons disease Status: Chronic (6) E coli bacteremia Status: Acute - Transfer Medications Prescriptions: levoFLOXacin [Levaquin] 750 mg PO Q48H #14 tablet Home Medications: Carbidopa/Levodopa [Carbidopa-Levodopa 25-100 Tab] 1 tab PO QID 03/15/16 [ History] Rotigotine [Neupro] 1 each TD DAILY 03/15/16 [History] Polyethylene Glycol 3350 [MiraLAX] 17 gm PO DAILY #14 powd.pack 03/18/16 [Rx] Acetaminophen [Tylenol] 650 mg PO Q4-6H PRN 08/03/16 [History] Lisinopril [Zestril] 5 mg PO DAILY 08/03/16 [History] Sennosides/Docusate Sodium [Senna Plus] 1 each PO BID 08/03/16 [History] Aspirin [Lo-Dose Aspirin EC] 81 mg PO DAILY 11/02/16 [History] Ipratropium/Albuterol Neb [Duoneb] 3 ml IH QID PRN 11/02/16 [History] Mv-Mn/FA/Vit K1/Lycop/Lut/Zeax [Ocuvite Eye + Multi Tablet] 1 each PO DAILY [History] Octreotide Acetate (LAR) [Sandostatin Lar] 20 mg IM QMONTH #6 kit 02/15/17 [Rx] Carbidopa/Levodopa 25/100 [Sinemet 25/100] 2 each PO HS 02/20/17 [History] Gabapentin [Neurontin] 400 mg PO TID 02/20/17 [History] Loratadine [Claritin] 10 mg PO DAILY 02/20/17 [History] levoFLOXacin [Levaquin] 750 mg PO Q48H #14 tablet 02/24/17 [Rx] Allergies/Adverse Reactions: 3 Allergy/AdvReac Type Severity Reaction Status Date / Time cephalexin [From Keflex] Allergy Rash Verified 07/18/17 13:49 - Respiratory Orders Oxygen / L per min (2 liters per min. Titrate to maintain O2 sats greater than or equesl to 92%) Smoking Cessation: Smoking cessation has been advised. For more information, call the [place] Tobacco Quit Line at 7-072-RNME-NOW. - Ancillary Orders May use pressure relief devices daily prn - Advance Directives Code Status: Full Code - Mobility Orders Ambulate - Rehabiliation Orders Rehab Orders: Evaluation for Physical Therapy, Evaluation for Occupational Therapy - Diet Orders Regular CERTIFICATION: I certify that the transfer of the above named patient to an Extended Care Facility is necessary for the continuing treatment of the diagnosis listed. The above information is true and accurate reflection of patient's current condition. Confidential - Redisclosure prohibited without a patient's written consent.
--- NOTE | 2017-02-24 13:26 | Infectious Disease Progress No ---
Date of Encounter: 02/24/17 Time of Encounter: 13:24 - Assessment and Plan (1) Sepsis Current Visit: Yes Status: Acute The patient had two SIRS criteria plus SAVAGE on admission. Likely secondary to UTI and bacteremia. Improved. The patient has been afebrile. Tachycardia has resolved. SAVAGE resolved. Blood cultures drawn 02/20/17 are positive 2/2 sets for E. coli. Repeat blood cultures drawn 02/23/17 are NGTD x 2 sets. Qualifiers: Sepsis type: Escherichia coli Qualified Code(s): A41.51 - Sepsis due to Escherichia coli [E. coli] (2) Bacteremia Current Visit: Yes Status: Acute Causative organism: E. coli, metzger-sensitive. Source likely UTI. The patient reports some dysuria prior to admission. Repeat blood cultures x 2 sets drawn 02/23/17 are pending x 2 sets. Continue Levaquin 750mg IV daily. Duration of treatment depends on the clinical picture, but likely 14 days from the first set of negative blood cultures. Since the patient has improved clinically, will likely be able to switch to PO when ready for discharge. Treat through 03/08/17. Monitor renal function and dose-adjust antibiotics. (3) UTI (urinary tract infection) Current Visit: Yes Status: Acute Causative organism E. coli. Continue antibiotics as above. Qualifiers: Urinary tract infection type: site unspecified Hematuria presence: without hematuria Qualified Code(s): N39.0 - Urinary tract infection, site not specified (4) Healthcare-associated pneumonia Current Visit: Yes Status: Acute CXR shows bilateral perihilar opacities concerning for possible PNA. The patient does not relate any symptoms related to PNA at this time. Repeat CXR improved. Antibiotic recommendations as above. (5) SAVAGE (acute kidney injury) Current Visit: Yes Status: Resolved Likely secondary to sepis. Continue to trend. Dose-adjust antibiotics. Avoid nephrotoxins as able. 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 Diagnosed in 2016, but no additional biopsy or surgery done due to the patient' s comorbid conditions and the patient's preference. Gets monthly Sandostatin injections. - Subjective Interval history: Patient seen and examined. No acute events noted overnight. Denies acute pain at this time. Denies fevers, chills, or rigors. Denies chest pain, shortness of breath, or cough. Denies nausea, vomiting, or diarrhea. Denies abdominal pain and states her appetite is okay. Complains of chronic bilateral feet pain. Infect Dis PN-Objective Data - Labs CBC & Chem 7: 02/24/17 05:43 02/24/17 05:43 Labs: Laboratory Results - last 24 hr 02/23/17 02/23/17 02/23/17 07:35 11:15 19:45 WBC RBC Hgb Hct MCV MCH MCHC RDW Plt Count MPV Sodium Potassium Chloride Carbon Dioxide BUN Creatinine Est GFR ( Amer) Est GFR (Non-Af Amer) BUN/Creatinine Ratio Glucose POC Glucose 115 H 139 H 106 H Calculated Osmolality Calcium 02/24/17 02/24/17 02/24/17 05:43 05:43 07:37 WBC 8.3 RBC 3.93 Hgb 10.1 L Hct 32.1 L MCV 81.7 L MCH 25.7 L MCHC 31.5 L RDW 15.7 H Plt Count 253 MPV 10.9 Sodium 142 Potassium 4.5 Chloride 110 H Carbon Dioxide 22 BUN 14 Creatinine 0.89 Est GFR ( Amer) > 60 Est GFR (Non-Af Amer) > 60 BUN/Creatinine Ratio 16 Glucose 89 POC Glucose 104 H Calculated Osmolality 294 Calcium 8.9 02/24/17 11:23 WBC RBC Hgb Hct MCV MCH MCHC RDW Plt Count MPV Sodium Potassium Chloride Carbon Dioxide BUN Creatinine Est GFR ( Amer) Est GFR (Non-Af Amer) BUN/Creatinine Ratio Glucose POC Glucose 152 H Calculated Osmolality Calcium Cultures: Cultures 02/23/17 04:28 Blood Culture - Preliminary Peripheral Venipuncture No growth. 02/23/17 04:20 Blood Culture - Preliminary Peripheral Venipuncture No growth. Serology 02/23/17 02/20/17 Range/Units 03:47 18:40 Chlamy pneumoniae PCR Not Detected Not Detected (Not Detect) Adenovirus (PCR) Not Detected Not Detected (Not Detect) B. pertussis DNA (PCR) Not Detected Not Detected (Not Detect) Coronavirus OC43 (PCR) Not Detected Not Detected (Not Detect) Coronavirus HKU1 (PCR) Not Detected Not Detected (Not Detect) Coronavirus 229E (PCR) Not Detected Not Detected (Not Detect) Coronavirus NL63 (PCR) Not Detected Not Detected (Not Detect) Human Metapneumovir PCR Not Detected Not Detected (Not Detect) Influenza A (H1) PCR Not Detected Not Detected (Not Detect) Influ A (H1N1/09) PCR Not Detected Not Detected (Not Detect) Influenza A (H3) PCR Not Detected Not Detected (Not Detect) Influenza A Untype (PCR) Not Detected Not Detected (Not Detect) Influenza Type B (PCR) Not Detected Not Detected (Not Detect) M.pneumoniae DNA (PCR) Not Detected Not Detected (Not Detect) Parainfluenza 1 (PCR) Not Detected Not Detected (Not Detect) Parainfluenza 2 (PCR) Not Detected Not Detected (Not Detect) Parainfluenza 3 (PCR) Not Detected Not Detected (Not Detect) Parainfluenza 4 (PCR) Not Detected Not Detected (Not Detect) RSV (PCR) Not Detected Not Detected (Not Detect) Entero/Rhino (PCR) Not Detected Not Detected (Not Detect) Exam - Constitutional Vitals: Temp Pulse Resp BP Pulse Ox 99.5 F 85 16 114/67 91 02/24/17 10:20 02/24/17 10:20 02/24/17 10:20 02/24/17 10:20 02/24/17 10:20 General appearance: average body habitus, cooperative, no acute distress - Head Head exam: Present: atraumatic, normal inspection, normocephalic - Eye Eye exam: Present: EOMI, normal appearance, PERRL Pupils: Present: normal accommodation - ENT ENT exam: Present: mucous membranes moist - Neck Neck exam: Present: normal inspection - Respiratory Respiratory exam: Present: CTAB. Absent: rales, respiratory distress, rhonchi, wheezes - Cardiovascular Cardiovascular exam: Present: RRR, +S1, +S2 - GI/Abdominal GI/Abdominal exam: Present: normal bowel sounds, soft. Absent: distended, tenderness - Extremities Exam Extremities exam: Present: normal inspection. Absent: joint swelling, pedal edema, tenderness - Neurological Exam Neurological exam: Present: alert, oriented X3, no focal deficits - Psychiatric Psychiatric exam: Present: normal affect, normal mood - Skin Skin exam: Present: dry, intact, normal color, warm Consult Discharge Plan - Plan Instructions: Urinary Tract Infection in Women (DC), Sepsis (DC), Pneumonia (DC ) Referrals: Mitchell Farah MD [Primary Care Provider] - Prescriptions: levoFLOXacin [Levaquin] 750 mg PO Q48H #14 tablet
[2017-02-25] MEDS ORDERED: Levofloxacin 750 MG/150 ML 750 MG/150 ML BAG IVPB SCH (10:00)
== END 2017-02-24 14:35 | DRG 871 ==
LOC: 3BNU 00:32 → EMEROO 00:32 → 3BNU 03:15
PROVIDERS: ADMIT Internal Medicine; ATTEND Registered Nurse

== ENCOUNTER 2017-04-06 14:26 | Inpatient (IN) ==
--- NOTE | 2017-04-06 14:35 | Emergency Department Note ---
Disposition Clinical Impression: Confusion UTI (urinary tract infection) Qualifiers: Urinary tract infection type: site unspecified Hematuria presence: without hematuria Qualified Code(s): N39.0 - Urinary tract infection, site not specified Disposition: Admitted As Inpatient Condition: Fair Referrals: Mitchell Farah MD [Primary Care Provider] - Forms: ED Satisfaction Letter Altered Mental Status HPI - General Chief Complaint: ED Altered Mental Status Stated Complaint: AMS Time Seen by Provider: 04/06/17 14:31 Source: EMS Mode of arrival: ambulatory Limitations: altered mental status Nursing Notes Reviewed: Yes Vital Signs Reviewed: Yes - History of Present Illness HPI Narrative: Patient presents from assisted for evaluation of decreased responsiveness. Onset today. Patient does complain of a cough. Patient is awake and able to say her name and complain of cough but does not have the capacity to state other symptoms. She is able to raise both her arms and her legs without falling back to the bed. - Related Data Home Medications Medication Instructions Recorded Confirmed Rotigotine [Neupro] 1 each TD DAILY 03/15/16 04/06/17 Acetaminophen [Tylenol] 650 mg PO Q4-6H PRN 08/03/16 04/06/17 Lisinopril [Zestril] 5 mg PO DAILY 08/03/16 04/06/17 Sennosides/Docusate Sodium [Senna 1 each PO BID 08/03/16 04/06/17 Plus] Ipratropium/Albuterol Neb [Duoneb] 3 ml IH QID PRN 11/02/16 04/06/17 Mv-Mn/FA/Vit K1/Lycop/Lut/Zeax 1 each PO DAILY 11/02/16 04/06/17 [Ocuvite Eye + Multi Tablet] Aspirin 81 mg PO DAILY 04/06/17 04/06/17 Carbidopa/Levodopa ER 50/200 0.5 each PO QID 04/06/17 04/06/17 [Sinemet ER 50-200 TAB] Gabapentin [Neurontin] 600 mg PO TID 04/06/17 04/06/17 Oxybutynin [Ditropan] 5 mg PO QID PRN 04/06/17 04/06/17 Oxycodone HCl 5 mg PO Q4H PRN 04/06/17 04/06/17 Previous Rx's Medication Instructions Recorded Polyethylene Glycol 3350 [MiraLAX] 17 gm PO DAILY #14 powd.pack 03/18/16 Octreotide Acetate (LAR) 20 mg IM QMONTH #6 kit 02/15/17 [Sandostatin Lar] Allergies Allergy/AdvReac Type Severity Reaction Status Date / Time cephalexin [From Keflex] Allergy Rash Verified 11/02/16 13:49 Limitations: ROS unobtainable due to patients medical condition Respiratory: Reports: cough Neurological: Reports: confusion Past Medical History - Past Medical History Medical history: Reports: arthritis, cancer, coronary artery disease, CVA, dementia, GERD, hyperlipidemia, hypertension, malignancy, peripheral artery disease, renal disease, venous stasis, other Surgical history: Reports: appendectomy, colectomy, herniorrhaphy, hip replacement, orthopedic, other, other Psychiatric history: Reports: anxiety, depression - Social History Smoking Status: Never smoker Smokeless Tobacco Status: No Alcohol use: Reports: none Drug use: Reports: none Physical Exam General: decreased responsiveness Head: Normocephalic Atraumatic Eyes: Pupils pinpoint. ENT: Airway patent, no stridor Neck: supple, no meningismus Chest: Lungs clear to auscultation bilateral Cardiac: Regular rate and rhythm, no murmurs, rubs or gallops Abdomen: soft, nontender, nondistended; no guarding, rebound, or tenderness to percussion Musculoskeletal: Calves symmetric, nontender, no palpable cord Skin: No rash, normal skin tone Neuro: Alert and Oriented to person and able to hold all 4 extremities off the bed. - General Limitations: altered mental status General appearance: alert, lethargic Course - Reevaluation(s) Reevaluation #1: Patient's mental status has improved since she has been here. She is able to carry on a conversation. She is asking where her family is out. Patient's workup is negative except for significant urinary tract infection. She has had multiple urinary tract infections in the past including Escherichia coli as well as VRE and Klebsiella. Patient's cultures have been gone through and she is sensitive to Zosyn. She has a Keflex allergy is listed as a rash. Patient will be given Zosyn and monitor closely. - Consultations Consultation #1: Dr. Kang accepts for further evaluation and management. Vital Signs Temperature 99.2 F 04/06/17 14:27 Pulse Rate 72 04/06/17 14:27 Respiratory Rate 16 04/06/17 14:27 Blood Pressure 120/53 04/06/17 14:27 O2 Sat by Pulse Oximetry 99 04/06/17 14:27 Temperature 99.2 F 04/06/17 14:27 Pulse Rate 72 04/06/17 14:27 Respiratory Rate 16 04/06/17 14:27 Blood Pressure 120/53 04/06/17 14:27 O2 Sat by Pulse Oximetry 99 04/06/17 14:27 Oxygen Delivery Oxygen Delivery Nasal Cannula Altered Mental Status - Medical Records Medical records reviewed: Yes I reviewed the patient's medical records. - Lab Data Lab results reviewed: Yes I reviewed the patient's lab results. Result diagrams: 04/06/17 14:48 04/06/17 14:48 Lab Results 04/06/17 04/06/17 04/06/17 Range/Units 14:48 14:48 14:48 WBC 10.3 (4.3-11.1) K/mcL RBC 4.54 (3.82-4.97) M/mcL Hgb 11.3 L (11.5-15.4) g/dL Hct 36.3 (35.3-44.9) % MCV 80.0 L (83.0-100.0) fL MCH 24.9 L (28.0-33.3) pg MCHC 31.1 L (31.6-35.5) g/dL RDW 15.7 H (11.5-14.5) % Plt Count 428 H (140-400) K/mcL MPV 9.3 L (9.4-12.4) fL Immature Gran % 0.3 (0-4) % Seg Neutrophils % 77.6 % Lymphocytes % 13.2 % Monocytes % 7.6 % Eosinophils % 0.7 % Basophils % 0.6 % Neutrophils # 8.0 (1.6-8.9) K/mcL Lymphocytes # 1.4 (0.6-4.6) K/mcL Monocytes # 0.8 (0.0-1.3) K/mcL Eosinophils # 0.1 (0.0-0.6) K/mcL Basophils # 0.1 (0.0-0.2) K/mcL PT 13.5 H (9.4-12.1) Seconds INR 1.2 VBG pH (7.32-7.42) pH Units VBG pCO2 (41-51) mmHg VBG pO2 (25-50) mmHg VBG HCO3 (21-27) mEq/L Sodium 141 (136-145) mEq/L Potassium 4.2 (3.5-5.1) mEq/L Chloride 111 H (98-107) mEq/L Carbon Dioxide 23 (23-29) mEq/L BUN 21 (8-23) mg/dL Creatinine 1.10 (0.60-1.20) mg/dL Est GFR ( Amer) 58 L (> 60) Est GFR (Non-Af Amer) 48 L (> 60) BUN/Creatinine Ratio 19 (6-26) Glucose 114 H (70-105) mg/dL Calculated Osmolality 296 (280-300) Calcium 8.7 (8.6-10.3) mg/dL Total Bilirubin 0.6 (0.3-1.0) mg/dL Direct Bilirubin 0.2 (0.0-0.2) mg/dL Indirect Bilirubin 0.4 (0.0-1.2) mg/dL AST 10 L (13-39) Units/L ALT < 3 L (7-52) Units/L Alkaline Phosphatase 128 H (34-104) Units/L Ammonia (16-53) mcmol/L Troponin I (< 0.04) ng/mL Serum Total Protein 6.6 (6.4-8.9) g/dL Albumin 3.3 L (3.5-5.7) g/dL Globulin 3.3 (2.4-3.5) g/dL Albumin/Globulin Ratio 1.0 L (1.1-2.2) TSH 2.502 (0.340-5.600) mcIU/mL Urine Color (Yellow) Urine Clarity (Clear) Urine pH (5.0-8.0) pH Units Ur Specific [place] (1.010-1.025) Urine Protein (Neg-Trace) mg/dL Urine Glucose (UA) (Normal) mg/dL Urine Ketones (Negative) mg/dL Urine Blood (Negative) Urine Nitrite (Negative) Urine Bilirubin (Negative) Urine Urobilinogen (Normal) mg/dL Ur Leukocyte Esterase (Negative) Urine Microscopic RBC (0-3) per hpf Urine Microscopic WBC (0-3) per hpf Ur Squamous Epith Cells (None-Few) per lpf Urine Bacteria (None-Few) per hpf Ur Culture Indicated? (NO) Urine Opiates Screen (Bdozmh=640) ng/mL Ur Barbiturates Screen (Gsflmc=728) ng/mL Ur Phencyclidine Scrn (Cutoff=25) ng/mL Ur Amphetamines Screen (Eqkfqt=2277) ng/mL U Benzodiazepines Scrn (Ezynny=568) ng/mL Urine Cocaine Screen (Cutoff= 300) ng/mL U Marijuana (THC) Screen (Cutoff = 50) ng/mL 04/06/17 04/06/17 04/06/17 Range/Units 14:48 14:48 15:13 WBC (4.3-11.1) K/mcL RBC (3.82-4.97) M/mcL Hgb (11.5-15.4) g/dL Hct (35.3-44.9) % MCV (83.0-100.0) fL MCH (28.0-33.3) pg MCHC (31.6-35.5) g/dL RDW (11.5-14.5) % Plt Count (140-400) K/mcL MPV (9.4-12.4) fL Immature Gran % (0-4) % Seg Neutrophils % % Lymphocytes % % Monocytes % % Eosinophils % % Basophils % % Neutrophils # (1.6-8.9) K/mcL Lymphocytes # (0.6-4.6) K/mcL Monocytes # (0.0-1.3) K/mcL Eosinophils # (0.0-0.6) K/mcL Basophils # (0.0-0.2) K/mcL PT (9.4-12.1) Seconds INR VBG pH 7.40 (7.32-7.42) pH Units VBG pCO2 39 L (41-51) mmHg VBG pO2 81 H (25-50) mmHg VBG HCO3 24 (21-27) mEq/L Sodium (136-145) mEq/L Potassium (3.5-5.1) mEq/L Chloride (98-107) mEq/L Carbon Dioxide (23-29) mEq/L BUN (8-23) mg/dL Creatinine (0.60-1.20) mg/dL Est GFR ( Amer) (> 60) Est GFR (Non-Af Amer) (> 60) BUN/Creatinine Ratio (6-26) Glucose (70-105) mg/dL Calculated Osmolality (280-300) Calcium (8.6-10.3) mg/dL Total Bilirubin (0.3-1.0) mg/dL Direct Bilirubin (0.0-0.2) mg/dL Indirect Bilirubin (0.0-1.2) mg/dL AST (13-39) Units/L ALT (7-52) Units/L Alkaline Phosphatase (34-104) Units/L Ammonia 32 (16-53) mcmol/L Troponin I 0.03 (< 0.04) ng/mL Serum Total Protein (6.4-8.9) g/dL Albumin (3.5-5.7) g/dL Globulin (2.4-3.5) g/dL Albumin/Globulin Ratio (1.1-2.2) TSH (0.340-5.600) mcIU/mL Urine Color (Yellow) Urine Clarity (Clear) Urine pH (5.0-8.0) pH Units Ur Specific [place] (1.010-1.025) Urine Protein (Neg-Trace) mg/dL Urine Glucose (UA) (Normal) mg/dL Urine Ketones (Negative) mg/dL Urine Blood (Negative) Urine Nitrite (Negative) Urine Bilirubin (Negative) Urine Urobilinogen (Normal) mg/dL Ur Leukocyte Esterase (Negative) Urine Microscopic RBC (0-3) per hpf Urine Microscopic WBC (0-3) per hpf Ur Squamous Epith Cells (None-Few) per lpf Urine Bacteria (None-Few) per hpf Ur Culture Indicated? (NO) Urine Opiates Screen (Tpngty=467) ng/mL Ur Barbiturates Screen (Ibpbaj=424) ng/mL Ur Phencyclidine Scrn (Cutoff=25) ng/mL Ur Amphetamines Screen (Edtgck=0257) ng/mL U Benzodiazepines Scrn (Vckaae=072) ng/mL Urine Cocaine Screen (Cutoff= 300) ng/mL U Marijuana (THC) Screen (Cutoff = 50) ng/mL 04/06/17 04/06/17 Range/Units 15:23 15:23 WBC (4.3-11.1) K/mcL RBC (3.82-4.97) M/mcL Hgb (11.5-15.4) g/dL Hct (35.3-44.9) % MCV (83.0-100.0) fL MCH (28.0-33.3) pg MCHC (31.6-35.5) g/dL RDW (11.5-14.5) % Plt Count (140-400) K/mcL MPV (9.4-12.4) fL Immature Gran % (0-4) % Seg Neutrophils % % Lymphocytes % % Monocytes % % Eosinophils % % Basophils % % Neutrophils # (1.6-8.9) K/mcL Lymphocytes # (0.6-4.6) K/mcL Monocytes # (0.0-1.3) K/mcL Eosinophils # (0.0-0.6) K/mcL Basophils # (0.0-0.2) K/mcL PT (9.4-12.1) Seconds INR VBG pH (7.32-7.42) pH Units VBG pCO2 (41-51) mmHg VBG pO2 (25-50) mmHg VBG HCO3 (21-27) mEq/L Sodium (136-145) mEq/L Potassium (3.5-5.1) mEq/L Chloride (98-107) mEq/L Carbon Dioxide (23-29) mEq/L BUN (8-23) mg/dL Creatinine (0.60-1.20) mg/dL Est GFR ( Amer) (> 60) Est GFR (Non-Af Amer) (> 60) BUN/Creatinine Ratio (6-26) Glucose (70-105) mg/dL Calculated Osmolality (280-300) Calcium (8.6-10.3) mg/dL Total Bilirubin (0.3-1.0) mg/dL Direct Bilirubin (0.0-0.2) mg/dL Indirect Bilirubin (0.0-1.2) mg/dL AST (13-39) Units/L ALT (7-52) Units/L Alkaline Phosphatase (34-104) Units/L Ammonia (16-53) mcmol/L Troponin I (< 0.04) ng/mL Serum Total Protein (6.4-8.9) g/dL Albumin (3.5-5.7) g/dL Globulin (2.4-3.5) g/dL Albumin/Globulin Ratio (1.1-2.2) TSH (0.340-5.600) mcIU/mL Urine Color Yellow (Yellow) Urine Clarity Turbid A (Clear) Urine pH 5.5 (5.0-8.0) pH Units Ur Specific [place] 1.017 (1.010-1.025) Urine Protein Trace (Neg-Trace) mg/dL Urine Glucose (UA) Normal (Normal) mg/dL Urine Ketones Negative (Negative) mg/dL Urine Blood Small H (Negative) Urine Nitrite Negative (Negative) Urine Bilirubin Negative (Negative) Urine Urobilinogen Normal (Normal) mg/dL Ur Leukocyte Esterase Large H (Negative) Urine Microscopic RBC 5-15 H (0-3) per hpf Urine Microscopic WBC TNTC H (0-3) per hpf Ur Squamous Epith Cells Moderate H (None-Few) per lpf Urine Bacteria Many H (None-Few) per hpf Ur Culture Indicated? YES A (NO) Urine Opiates Screen Negative (Rwxqpx=164) ng/mL Ur Barbiturates Screen Negative (Warpkf=943) ng/mL Ur Phencyclidine Scrn Negative (Cutoff=25) ng/mL Ur Amphetamines Screen Negative (Ivoqzp=2903) ng/mL U Benzodiazepines Scrn Negative (Aymmeb=947) ng/mL Urine Cocaine Screen Negative (Cutoff= 300) ng/mL U Marijuana (THC) Screen Negative (Cutoff = 50) ng/mL - Radiology Data Radiology results reviewed: Yes I reviewed the patient's radiology results. - EKG Data EKG attestation: Yes I reviewed and interpreted this EKG. EKG results narrative: EKG shows sinus tachycardia with ventricular rate of 105. MN interval 162. QRS 102. QTC 451. Patient has no significant ST elevations or depressions. Patient's EKG change from previous as tachycardia of 02/23/16. TPA Checklist - LKW: 3-4.5 hrs Add. Warnings/Precautions Patient/family understanding: The patient/family members have been counseled and understood the risk, benefit , and alternatives of treatment.
--- NOTE | 2017-04-06 15:01 | Emergency Department Note ---
START Narrative - START START: I examined this patient and my medical decision-making was reviewed with the Resident Physician. I agree with the documented findings, disposition and treatment plan as described except to the extent set forth below. 81 year old female presents to the ED via EMS from [facility] for altered mental status. Nursing hoe states that she was unrepsonsive to questions and pain although her vital signs were stable and that EMS states that she was answering questions appropiately for them in the back of the truck. Dmitri appears altered on exam. We will do altered mental status workup and rule out metabolic reasons for her altered mental status. She will likley be admitted to medicine.
[2017-04-06 15:07] LABS: Basophils # 0.1 K/mcL (0.0-0.2); Basophils % 0.6 %; Eosinophils # 0.1 K/mcL (0.0-0.6); Eosinophils % 0.7 %; Hematocrit 36.3 % (35.3-44.9); Hemoglobin 11.3 g/dL (11.5-15.4); Immature Granulocytes % 0.3 % (0-4); Lymphocytes # 1.4 K/mcL (0.6-4.6); Lymphocytes % 13.2 %; Mean Corpuscular HGB Conc 31.1 g/dL (31.6-35.5); Mean Corpuscular Hemoglobin 24.9 pg (28.0-33.3); Mean Platelet Volume 9.3 fL (9.4-12.4); Monocytes # 0.8 K/mcL (0.0-1.3); Monocytes % 7.6 %; Platelet Count 428 K/mcL (140-400); Red Blood Count 4.54 M/mcL (3.82-4.97); Red Cell Distribution Width 15.7 % (11.5-14.5); Segmented Neutrophils % 77.6 %
[2017-04-06 15:15] LABS: INR 1.2; Prothrombin Time 13.5 Seconds (9.4-12.1)
[2017-04-06 15:15] LABS: VBG HCO3 24 mEq/L (21-27); VBG PCO2 39 mmHg (41-51); VBG PO2 81 mmHg (25-50)
[2017-04-06 15:26] LABS: Alanine Aminotransferase < 3 Units/L (7-52); Albumin 3.3 g/dL (3.5-5.7); Alkaline Phosphatase 128 Units/L (34-104); Aspartate Amino Transferase 10 Units/L (13-39); BUN/Creatinine Ratio 19 (6-26); Bilirubin,Direct 0.2 mg/dL (0.0-0.2); Bilirubin,Indirect 0.4 mg/dL (0.0-1.2); Bilirubin,Total 0.6 mg/dL (0.3-1.0); Blood Urea Nitrogen 21 mg/dL (8-23); Calcium 8.7 mg/dL (8.6-10.3); Carbon Dioxide 23 mEq/L (23-29); Chloride 111 mEq/L (98-107); Globulin 3.3 g/dL (2.4-3.5); Glucose 114 mg/dL (70-105); Osmolality,Calculated 296 (280-300); Potassium 4.2 mEq/L (3.5-5.1); Sodium 141 mEq/L (136-145); Total Protein 6.6 g/dL (6.4-8.9); eGFR For African Americans 58 (> 60); eGFR For Non-African Americans 48 (> 60)
[2017-04-06 15:32] LABS: Bilirubin,Urine Negative (Negative); Blood,Urine Small (Negative); Clarity,Urine Turbid (Clear); Color,Urine Yellow (Yellow); Glucose,Urine (UA) Normal (Normal); Ketones,Urine Negative (Negative); Leukocyte Esterase,Urine Large (Negative); Nitrite,Urine Negative (Negative); PH,Urine 5.5 pH Units (5.0-8.0); Protein,Urine Trace mg/dL (Neg-Trace); Specific Gravity,Urine 1.017 (1.010-1.025); Urobilinogen,Urine Normal (Normal)
[2017-04-06 15:38] LABS: Thyroid Stimulating Hormone 2.502 mcIU/mL (0.340-5.600)
[2017-04-06 15:39] LABS: Amphetamine Screen,Urine Negative ng/mL (Cutoff=1000); Bacteria,Urine Many per hpf (None-Few); Barbiturate Screen,Urine Negative ng/mL (Cutoff=200); Benzodiazepines Screen,Urine Negative ng/mL (Cutoff=200); Cannabinoid Screen,Urine Negative ng/mL (Cutoff = 50); Cocaine Screen,Urine Negative ng/mL (Cutoff= 300); Opiate Screen,Urine Negative ng/mL (Cutoff=300); Phencyclidine Screen,Urine Negative ng/mL (Cutoff=25); WBC,Urine TNTC per hpf (0-3)
[2017-04-06 15:40] LABS: Squamous Epithelial Cell,Urine Moderate per lpf (None-Few)
[2017-04-06] MEDS ORDERED: Piperacillin/Tazobactam 3.375 GM in D5% in Water (Mini-Bag+) 100 ML IVPB ONE (16:08)
[2017-04-06] MEDS ORDERED: 0.9 % Sodium Chloride 1,000 ML IVC ONE ×2 (16:33→23:59)
[2017-04-06] MEDS ORDERED: Piperacillin/Tazobactam 3.375 GM in Water for inj. (sterile) 20 ML 20 ML IVP ONE (16:45)
[2017-04-06 16:56] LABS: Ethanol < 10 mg/dL (0-10)
[2017-04-07] MEDS ORDERED: Sennosides 8.6 MG TABLET PO ONE (00:06)
[2017-04-07] MEDS: *HR* Heparin 5,000 UNIT/ML VIAL SQ SCH ×4 (01:51→23:08)
[2017-04-07] MEDS: Piperacillin/Tazobactam 3.375 GM/200 ML BAG IVPB SCH ×4 (02:06→23:13)
[2017-04-07] MEDS ORDERED: Ondansetron ODT 4 MG TAB.RAPDIS SL PRN (06:20)
[2017-04-07] MEDS ORDERED: Naloxone 0.4 MG/ML INJ IVP PRN (06:20)
[2017-04-07 06:37] LABS: Basophils # 0.1 K/mcL (0.0-0.2); Basophils % 0.5 %; Hemoglobin 9.9 g/dL (11.5-15.4); Immature Granulocytes % 0.5 % (0-4); Lymphocytes # 1.7 K/mcL (0.6-4.6); Lymphocytes % 11.3 %; Mean Corpuscular HGB Conc 30.9 g/dL (31.6-35.5); Mean Corpuscular Hemoglobin 24.9 pg (28.0-33.3); Mean Corpuscular Volume 80.6 fL (83.0-100.0); Monocytes # 1.3 K/mcL (0.0-1.3); Monocytes % 8.7 %; Neutrophils # 11.6 K/mcL (1.6-8.9); Platelet Count 332 K/mcL (140-400); Red Blood Count 3.97 M/mcL (3.82-4.97); Red Cell Distribution Width 15.6 % (11.5-14.5)
--- NOTE | 2017-04-07 06:38 | Internal Med History&Physical ---
Date of Encounter: 04/07/17 Time of Encounter: 02:00 Internal Medicine - H&P: HPI Admitted From: Long-term Nursing Facility Plans for Post Hospital Care: Transfer Group Home Facility History of present illness: Ms. Orlando is a 81 [facility] old female [facility] w/ PMH CAD, HLD, HTN , PAD who presents with 1 day onset of AMS. She is A&O x1 by name. ED workup shows no PNA on CXR. Pt was started on Zosyn due to positive UA. Has recent history of MDRO UTI, past sensitivities showed sensitivity to Zosyn. Urine and blood cultures are pending. Patient currently oriented to name only. Sleepy, limited conversation. Denies cough, abdominal discomfort. Has not has a BM since Tuesday. Past Med Surg Social Fam HX - Past Medical History Medical history: arthritis, cancer, coronary artery disease, CVA, dementia, GERD , hyperlipidemia, hypertension, malignancy, peripheral artery disease, renal disease, venous stasis, other Psychiatric history: anxiety, depression - Past Surgical History Surgical History: appendectomy, colectomy, herniorrhaphy, hip replacement, orthopedic, other, other - Social History Smoking Status: Never smoker Smokeless Tobacco Status: No Alcohol use: none Drug use: none - Family History Mother Living Status: Internal Medicine - H&P: Meds Rotigotine [Neupro] 1 each TD DAILY 03/15/16 [History] Polyethylene Glycol 3350 [MiraLAX] 17 gm PO DAILY #14 powd.pack 03/18/16 [Rx] Acetaminophen [Tylenol] 650 mg PO Q4-6H PRN 08/03/16 [History] Lisinopril [Zestril] 5 mg PO DAILY 08/03/16 [History] Sennosides/Docusate Sodium [Senna Plus] 1 each PO BID 08/03/16 [History] Ipratropium/Albuterol Neb [Duoneb] 3 ml IH QID PRN 11/02/16 [History] Mv-Mn/FA/Vit K1/Lycop/Lut/Zeax [Ocuvite Eye + Multi Tablet] 1 each PO DAILY [History] Octreotide Acetate (LAR) [Sandostatin Lar] 20 mg IM QMONTH #6 kit 02/15/17 [Rx] Aspirin 81 mg PO DAILY 04/06/17 [History] Carbidopa/Levodopa ER 50/200 [Sinemet ER 50-200 TAB] 0.5 each PO QID 04/06/17 [ History] Gabapentin [Neurontin] 600 mg PO TID 04/06/17 [History] Oxybutynin [Ditropan] 5 mg PO QID PRN 04/06/17 [History] Oxycodone HCl 5 mg PO Q4H PRN 04/06/17 [History] 3 Allergy/AdvReac Type Severity Reaction Status Date / Time cephalexin [From Keflex] Allergy Rash Verified 11/02/16 13:49 All Systems PM: A 10-system review of systems was performed and is negative for pertinent findings except as documented above in the HPI. - Constitutional Vitals: Temp Pulse Resp BP Pulse Ox 98.3 F 67 16 120/61 94 04/07/17 05:05 04/07/17 05:05 04/07/17 05:05 04/07/17 05:05 04/07/17 05:05 Internal Med - H&P Results - Labs CBC & Chem 7: 04/06/17 14:48 04/06/17 14:48
--- NOTE | 2017-04-07 06:39 | Internal Med History&Physical ---
<Bebeto Romero - Last Filed: 04/07/17 07:30> Date of Encounter: 04/07/17 Time of Encounter: 02:00 Assessment and Plan (1) Altered mental status Current visit: No Status: Acute Oriented to name only. Pt mildy conversant, drowsy at time of encounter. Afebrile, normotensive, elevated white count, treating UTI with Zosyn. Qualifiers: Altered mental status type: somnolence Qualified Code(s): R40.0 - Somnolence (2) UTI (urinary tract infection) Current visit: Yes Status: Acute Hx MDRO, sensitive to Zosyn, treating, though pt asymptomatic at this time. Qualifiers: Urinary tract infection type: site unspecified Hematuria presence: without hematuria Qualified Code(s): N39.0 - Urinary tract infection, site not specified (3) Hypertension Current visit: No Status: Chronic Chronic condition, normotensive, continuing home meds. Qualifiers: Hypertension type: essential hypertension Qualified Code(s): I10 - Essential (primary) hypertension (4) DVT prophylaxis Current visit: No Status: Acute SQ heparin Internal Medicine - H&P: HPI Chief complaint: AMS Admitted From: Long-term Nursing Facility Plans for Post Hospital Care: Transfer [facility] Facility History of present illness: Ms. Orlando is a 81 [facility] old female [facility] resident w/ PMH CAD, HLD, HTN , PAD who presents with 1 day onset of AMS. She is A&O x1 by name. ED workup shows no PNA on CXR. Pt was started on Zosyn due to positive UA. Has recent history of MDRO UTI, past sensitivities showed sensitivity to Zosyn. Urine and blood cultures are pending. Patient currently oriented to name only. Sleepy, limited conversation. Denies cough, abdominal discomfort. Has not has a BM since Tuesday. Past Med Surg Social Fam HX - Past Medical History Medical history: arthritis, cancer, coronary artery disease, CVA, dementia, GERD , hyperlipidemia, hypertension, malignancy, peripheral artery disease, renal disease, venous stasis, other Psychiatric history: anxiety, depression - Past Surgical History Surgical History: appendectomy, colectomy, herniorrhaphy, hip replacement, orthopedic, other, other - Social History Smoking Status: Never smoker Smokeless Tobacco Status: No Alcohol use: none Drug use: none - Family History Mother Living Status: Internal Medicine - H&P: Meds Rotigotine [Neupro] 1 each TD DAILY 03/15/16 [History] Polyethylene Glycol 3350 [MiraLAX] 17 gm PO DAILY #14 powd.pack 03/18/16 [Rx] Acetaminophen [Tylenol] 650 mg PO Q4-6H PRN 08/03/16 [History] Lisinopril [Zestril] 5 mg PO DAILY 08/03/16 [History] Sennosides/Docusate Sodium [Senna Plus] 1 each PO BID 08/03/16 [History] Ipratropium/Albuterol Neb [Duoneb] 3 ml IH QID PRN 11/02/16 [History] Mv-Mn/FA/Vit K1/Lycop/Lut/Zeax [Ocuvite Eye + Multi Tablet] 1 each PO DAILY [History] Octreotide Acetate (LAR) [Sandostatin Lar] 20 mg IM QMONTH #6 kit 02/15/17 [Rx] Aspirin 81 mg PO DAILY 04/06/17 [History] Carbidopa/Levodopa ER 50/200 [Sinemet ER 50-200 TAB] 0.5 each PO QID 04/06/17 [ History] Gabapentin [Neurontin] 600 mg PO TID 04/06/17 [History] Oxybutynin [Ditropan] 5 mg PO QID PRN 04/06/17 [History] Oxycodone HCl 5 mg PO Q4H PRN 04/06/17 [History] 3 Allergy/AdvReac Type Severity Reaction Status Date / Time cephalexin [From Keflex] Allergy Rash Verified 11/02/16 13:49 All Systems PM: A 10-system review of systems was performed and is negative for pertinent findings except as documented above in the HPI. - Constitutional Vitals: Temp Pulse Resp BP Pulse Ox 98.3 F 67 16 120/61 94 04/07/17 05:05 04/07/17 05:05 04/07/17 05:05 04/07/17 05:05 04/07/17 05:05 General appearance: Present: A&O X 1, no acute distress - Head Head exam: Present: atraumatic, normal inspection - Neck Neck exam general surgery: Present: full ROM. Absent: tenderness - Respiratory Respiratory exam: Present: CTAB - Cardiovascular Cardiovascular exam: Present: +S1, +S2. Absent: JVD, rubs, systolic murmur - GI/Abdominal GI/Abdominal exam: Present: no peritoneal signs - Extremities Exam Extremities exam: Present: normal inspection. Absent: calf tenderness Internal Med - H&P Results - Labs CBC & Chem 7: 04/07/17 06:30 04/07/17 06:30 Labs: Short CBC 04/07/17 Range/Units 06:30 WBC 14.6 H (4.3-11.1) K/mcL Hgb 9.9 L (11.5-15.4) g/dL Hct 32.0 L (35.3-44.9) % Plt Count 332 (140-400) K/mcL Neutrophils # 11.6 H (1.6-8.9) K/mcL <Patrick Blandon N - Last Filed: 04/07/17 07:34> Date of Encounter: 04/07/17 Internal Medicine - H&P: HPI History of present illness: Ms. Orlando is a 81 year old female All Systems PM: A 10-system review of systems was performed and is negative for pertinent findings except as documented above in the HPI. - Constitutional Vitals: Temp Pulse Resp BP Pulse Ox 97.4 F L 68 16 129/75 97 04/07/17 07:24 04/07/17 07:24 04/07/17 07:24 04/07/17 07:24 04/07/17 07:24 Internal Med - H&P Results - Labs CBC & Chem 7: 04/07/17 06:30 04/07/17 06:30 Labs: Short CBC 04/07/17 Range/Units 06:30 WBC 14.6 H (4.3-11.1) K/mcL Hgb 9.9 L (11.5-15.4) g/dL Hct 32.0 L (35.3-44.9) % Plt Count 332 (140-400) K/mcL Neutrophils # 11.6 H (1.6-8.9) K/mcL BMP 04/07/17 06:30 Sodium 145 Potassium 3.9 Chloride 115 H Carbon Dioxide 21 L BUN 20 Creatinine 1.09 Glucose 122 H Calcium 7.9 L - Attending Attestation I have seen and examined the patient, case discussed with resident physician. History and physical reviewed , agree with it 81 years old female was transferred to the hospital for evaluation for confusion and altered mental status. Patient is so sleepy drowsy. No bowel movement for 4 days, decreased oral intake, workup was consistent with UTI and volume depletion O: Dry mucosa Chest clear to auscultation bilateral Heart S1-S2 normal Abdomen soft Assessment and plan Altered mental status Urinary tract infection Polypharmacy Patient confusion most likely secondary to multifactorial narcotics, volume depletion and UTI, add empiric antibiotic coverage, IV fluid, add laxative, hold narcotics, hold on lisinopril on discharge
[2017-04-07 06:58] LABS: Calcium 7.9 mg/dL (8.6-10.3); Potassium 3.9 mEq/L (3.5-5.1)
--- NOTE | 2017-04-07 07:16 | Event Note ---
Date of Encounter: 04/06/17 Time of Encounter: 09:50 I have seen and examined the patient, case discussed with resident physician. History and physical reviewed , agree with it 81 years old female was transferred to the hospital for evaluation for confusion and altered mental status. Patient is so sleepy drowsy. No bowel movement for 4 days, decreased oral intake, workup was consistent with UTI and volume depletion O: Dry mucosa Chest clear to auscultation bilateral Heart S1-S2 normal Abdomen soft Assessment and plan Altered mental status Urinary tract infection Polypharmacy Patient confusion most likely secondary to multifactorial narcotics, volume depletion and UTI, add empiric antibiotic coverage, IV fluid, add laxative, hold narcotics, hold on lisinopril on discharge
--- NOTE | 2017-04-07 07:46 | Internal Med Progress Note ---
<Oneal Rolon - Last Filed: 04/07/17 13:04> Date of Encounter: 04/07/17 Time of Encounter: 07:46 - Assessment and plan (1) E coli bacteremia Current Visit: No Status: Acute Assessment and plan: Blood culture x2 with GN rods with E. Coli H/o MDRO urine WBC meir to 14.6 Vitals stable Zosyn for now (2) UTI (urinary tract infection) Current Visit: Yes Status: Acute Assessment and plan: Urine culture pending (Previous culture sensitive to Zosyn) Blood culture x2 with GN rods with E. Coli H/o MDRO urine WBC meir to 14.6 Vitals stable Plan: Zosyn IVF Oxybuytnin Qualifiers: Urinary tract infection type: site unspecified Hematuria presence: without hematuria Qualified Code(s): N39.0 - Urinary tract infection, site not specified (3) Altered mental status Current Visit: No Status: Acute Assessment and plan: This morning she is oriented to person, time and says she is in a hospital but unaware which one H/o of parkinsons UTI w/ E Coli bacteremia Unaware of baseline Speech therapy recommends regular textures and thin liquids, one sip at a time Qualifiers: Altered mental status type: somnolence Qualified Code(s): R40.0 - Somnolence (4) Hypertension Current Visit: No Status: Chronic Assessment and plan: Well controlled at this time. Continue home Zestril Qualifiers: Hypertension type: essential hypertension Qualified Code(s): I10 - Essential (primary) hypertension (5) skilled nursing resident Current Visit: Yes Status: Acute Assessment and plan: Social work consulted (6) Parkinsons disease Current Visit: No Status: Chronic Assessment and plan: Restarted Sinemet (7) DVT prophylaxis Current Visit: No Status: Acute Assessment and plan: Heparin 5000 units q8hrs - Subjective Interval history: Patient is alert this morning and cooperative No new complaints She is AAox3 (States she is in a hospital but unaware of which one) Nursing states she is at baseline and no overnight events Denies any abdominal pain, n/v, fevers, palpitations, CP, SOB or dysuria - Constitutional Vitals: Temp Pulse Resp BP Pulse Ox 97.4 F L 68 16 129/75 97 04/07/17 07:24 04/07/17 07:24 04/07/17 07:24 04/07/17 07:24 04/07/17 07:24 General appearance: Present: cooperative (speech is slow, difficult to understand), A&O X 2, no acute distress - Head Head exam: Present: atraumatic, normocephalic - Eye Eye exam: Present: EOMI, normal appearance - ENT ENT exam: Present: mucous membranes moist - Neck Neck exam general surgery: Present: supple, trachea midline - Respiratory Respiratory exam: Present: CTAB. Absent: chest wall tenderness, respiratory distress - Cardiovascular Cardiovascular exam: Present: RRR, +S1, +S2. Absent: systolic murmur - GI/Abdominal GI/Abdominal exam: Present: normal bowel sounds, soft. Absent: distended, guarding, tenderness - Extremities Exam Extremities exam: Present: normal inspection, warm. Absent: calf tenderness, pedal edema - Neurological Exam Neurological exam: Present: alert, oriented X3, speech deficit (delayed) - Psychiatric Psychiatric exam: Present: flat affect - Skin Skin exam: Present: dry, warm Internal Medicine: Result - Labs CBC & Chem 7: 04/07/17 06:30 04/07/17 06:30 Labs: Short CBC 04/07/17 Range/Units 06:30 WBC 14.6 H (4.3-11.1) K/mcL Hgb 9.9 L (11.5-15.4) g/dL Hct 32.0 L (35.3-44.9) % Plt Count 332 (140-400) K/mcL Neutrophils # 11.6 H (1.6-8.9) K/mcL BMP 04/07/17 06:30 Sodium 145 Potassium 3.9 Chloride 115 H Carbon Dioxide 21 L BUN 20 Creatinine 1.09 Glucose 122 H Calcium 7.9 L - ABG Interpretation ABG results: PT/INR, D-dimer PT 13.5 Seconds (9.4-12.1) H 04/06/17 14:48 Consult Discharge Plan - Plan Referrals: Mitchell Farah MD [Primary Care Provider] - <Didier Ervin - Last Filed: 04/07/17 19:04> Date of Encounter: 04/07/17 - Constitutional Vitals: Temp Pulse Resp BP Pulse Ox 98.5 F 78 16 116/70 95 04/07/17 14:55 04/07/17 14:55 04/07/17 14:55 04/07/17 14:55 04/07/17 14:55 Internal Medicine: Result - Labs CBC & Chem 7: 04/07/17 13:53 04/07/17 13:53 Labs: Short CBC 04/07/17 04/07/17 Range/Units 06:30 13:53 WBC 14.6 H 13.2 H (4.3-11.1) K/mcL Hgb 9.9 L 10.2 L (11.5-15.4) g/dL Hct 32.0 L 33.6 L (35.3-44.9) % Plt Count 332 348 (140-400) K/mcL Neutrophils # 11.6 H 9.9 H (1.6-8.9) K/mcL BMP 04/07/17 04/07/17 06:30 13:53 Sodium 145 142 Potassium 3.9 3.8 Chloride 115 H 114 H Carbon Dioxide 21 L 22 L BUN 20 20 Creatinine 1.09 1.19 Glucose 122 H 110 H Calcium 7.9 L 8.3 L - ABG Interpretation ABG results: ABG ABG pH 7.38 pH Units (7.32-7.45) 04/07/17 13:57 ABG pCO2 40 mmHg (35-45) 04/07/17 13:57 ABG pO2 133 mmHg (85-104) H 04/07/17 13:57 ABG O2 Saturation 99 % (95-98) H 04/07/17 13:57 PT/INR, D-dimer PT 13.5 Seconds (9.4-12.1) H 04/06/17 14:48 - Attending Attestation I conducted a face to face diagnostic evaluation of this patient and my medical decision-making was reviewed with the Resident Physician. I agree with the documented findings, disposition and treatment plan as described except to the extent set forth below: Patient appears due to difficult to arouse, wakes up to sternal rub. Reports response to pain. Heart is regular. Lungs sounds are diminished. Abdomen is soft. Plan: We administered 0.8 of Narcan to evaluate for possible opiate toxicity. No response. Therefore this was ruled out. We will obtain MRI of the brain to evaluate for possible CVA. She had a nonacute head CT yesterday. Her neurologic exam is very limited but nonfocal. Continue with IV antibiotics for UTI and sepsis. Consider switching to meropenem F worsening mental status, fever or elevated white blood cell count. Didier Ervin MD
[2017-04-07] MEDS ORDERED: Gabapentin 300 MG CAPSULE PO SCH (09:00)
[2017-04-07] MEDS: Carbidopa/Levodopa ER 50/200 TABLET PO SCH ×4 (09:06→23:07)
[2017-04-07] MEDS: Aspirin 81 MG TAB.CHEW PO SCH (09:07)
[2017-04-07 09:36] LABS: Acinetobacter baumannii by PCR Not Detected (Not Detect); Candida albicans by PCR Not Detected (Not Detect); Candida glabrata by PCR Not Detected (Not Detect); Candida krusei by PCR Not Detected (Not Detect); Candida parapsilosis by PCR Not Detected (Not Detect); Candida tropicalis by PCR Not Detected (Not Detect); Enterococcus by PCR Not Detected (Not Detect); Klebsiella oxytoca by PCR Not Detected (Not Detect); Klebsiella pneumoniae by PCR Not Detected (Not Detect); Pseudomonas aeruginosa by PCR Not Detected (Not Detect); Serratia marcescens by PCR Not Detected (Not Detect); Staphylococcus aureus by PCR Not Detected (Not Detect); Streptococcus agalactiae(B)PCR Not Detected (Not Detect); Streptococcus by PCR Not Detected (Not Detect); Streptococcus pneumoniae PCR Not Detected (Not Detect); Streptococcus pyogenes (A) PCR Not Detected (Not Detect); blaKPC Carbapenem-Resist Gene Not Detected (Not Detect); mecA Methicillin-Resist Gene Not Detected (Not Detect); vanA/B Vancomycin-Resist Genes Not Detected (Not Detect)
[2017-04-07 09:37] LABS: Escherichia coli by PCR ***DETECTED*** (Not Detect)
[2017-04-07] MEDS ORDERED: Ipratropium/Albuterol Neb 3 ML IH PRN (11:00)
[2017-04-07 14:00] LABS: ABG Base Excess -2 mEq/L (-2 to 3); ABG HCO3 23 mEq/L (21-27); ABG Oxygen Saturation 99 % (95-98); ABG PCO2 40 mmHg (35-45); ABG PH 7.38 pH Units (7.32-7.45); ABG PO2 133 mmHg (85-104); ABG TCO2 25 mEq/L (20-26)
[2017-04-07 14:05] LABS: Basophils # 0.1 K/mcL (0.0-0.2); Basophils % 0.5 %; Eosinophils # 0.1 K/mcL (0.0-0.6); Eosinophils % 0.8 %; Hematocrit 33.6 % (35.3-44.9); Hemoglobin 10.2 g/dL (11.5-15.4); Immature Granulocytes % 0.3 % (0-4); Lymphocytes # 1.8 K/mcL (0.6-4.6); Lymphocytes % 13.8 %; Mean Corpuscular HGB Conc 30.4 g/dL (31.6-35.5); Mean Corpuscular Hemoglobin 24.7 pg (28.0-33.3); Mean Corpuscular Volume 81.4 fL (83.0-100.0); Mean Platelet Volume 9.5 fL (9.4-12.4); Monocytes # 1.3 K/mcL (0.0-1.3); Monocytes % 9.8 %; Neutrophils # 9.9 K/mcL (1.6-8.9); Platelet Count 348 K/mcL (140-400); Red Blood Count 4.13 M/mcL (3.82-4.97); Red Cell Distribution Width 15.6 % (11.5-14.5); Segmented Neutrophils % 74.8 %
[2017-04-07 14:25] LABS: Calcium 8.3 mg/dL (8.6-10.3); Potassium 3.8 mEq/L (3.5-5.1)
[2017-04-07] MEDS: 0.9 % Sodium Chloride 1,000 ML IVC SCH (15:47)
--- NOTE | 2017-04-07 16:35 | Electrocardiograph Report ---
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
--- NOTE | 2017-04-07 18:40 | Event Note ---
<Oneal Rolon - Last Filed: 04/07/17 18:41> Date of Encounter: 04/07/17 Time of Encounter: 13:30 Called to patient's room shortly after 1330 after she was found to be minimally responsive to stimuli. She was AAOx3 throughout the morning with myself and staff. On examination she responded to painful stimuli and light. She would make a grunting noise or one word answer with verbal direction or sternal rub. Vital signs were normal. BG 98. ABG, CBC, BMP normal. New EKG showed no new changes. EMR review showed no pain medication administered today. She did however have pinpoint pupils and Narcan was given without improvement. Head CT was done yesterday and therefore decided to investigate further with MRI this afternoon. Results pending. Family at bedside stated that she was excessively somnolent during her last admission with bacteremia as well. radiation monitor in place. Patient is otherwise stable at this time. We will followup on imaging results and monitor closely overnight. <Didier Ervin - Last Filed: 04/08/17 08:06> Date of Encounter: 04/07/17 I conducted a face to face diagnostic evaluation of this patient and my medical decision-making was reviewed with the Resident Physician, Dr Oneal Rolon. I agree with the documented findings, disposition and treatment plan as described except to the extent set forth below: Patient is arousable to painful stimuli. CT of the head yesterday was negative for acute findings. We will obtain MRI of the brain to rule out stroke. Didier Ervin MD
[2017-04-07 23:42] LABS: Amphetamine Screen,Urine Negative ng/mL (Cutoff=1000); Barbiturate Screen,Urine Negative ng/mL (Cutoff=200); Benzodiazepines Screen,Urine Negative ng/mL (Cutoff=200); Cannabinoid Screen,Urine Negative ng/mL (Cutoff = 50); Cocaine Screen,Urine Negative ng/mL (Cutoff= 300); Opiate Screen,Urine Negative ng/mL (Cutoff=300); Phencyclidine Screen,Urine Negative ng/mL (Cutoff=25)
[2017-04-08 05:50] LABS: BUN/Creatinine Ratio 16 (6-26); Blood Urea Nitrogen 16 mg/dL (8-23); Calcium 8.2 mg/dL (8.6-10.3); Carbon Dioxide 22 mEq/L (23-29); Chloride 115 mEq/L (98-107); Glucose 98 mg/dL (70-105); Osmolality,Calculated 297 (280-300); Potassium 3.7 mEq/L (3.5-5.1); Sodium 143 mEq/L (136-145); eGFR For African Americans > 60 (> 60); eGFR For Non-African Americans 54 (> 60)
[2017-04-08 06:09] LABS: Basophils # 0.1 K/mcL (0.0-0.2); Basophils % 0.7 %; Eosinophils # 0.3 K/mcL (0.0-0.6); Eosinophils % 2.8 %; Hematocrit 32.4 % (35.3-44.9); Hemoglobin 10.1 g/dL (11.5-15.4); Immature Granulocytes % 0.4 % (0-4); Lymphocytes # 1.1 K/mcL (0.6-4.6); Lymphocytes % 10.8 %; Mean Corpuscular HGB Conc 31.2 g/dL (31.6-35.5); Mean Corpuscular Hemoglobin 25.3 pg (28.0-33.3); Mean Platelet Volume 9.9 fL (9.4-12.4); Monocytes % 9.5 %; Platelet Count 345 K/mcL (140-400); Red Cell Distribution Width 15.7 % (11.5-14.5); Segmented Neutrophils % 75.8 %
[2017-04-08] MEDS: *HR* Heparin 5,000 UNIT/ML VIAL SQ SCH ×3 (06:13→21:28)
--- NOTE | 2017-04-08 07:57 | Internal Med Progress Note ---
<Oneal Rolon - Last Filed: 04/08/17 11:06> Date of Encounter: 04/08/17 Time of Encounter: 07:57 - Assessment and plan (1) E coli bacteremia Current Visit: No Status: Acute Assessment and plan: Blood culture x2 with GN rods with E. Coli H/o MDRO urine WBC down to 10.6 Vitals stable Zosyn for now Awaiting C/S (2) UTI (urinary tract infection) Current Visit: Yes Status: Acute Assessment and plan: Urine culture GN rods Blood culture x2 with GN rods with E. Coli H/o MDRO urine WBC meir to 14.6 Vitals stable Pending sensitivities Plan: Zosyn IVF Oxybuytnin Discharge planning - Likely tomorrow back to retirement on [facility] pending sensitivities. Qualifiers: Urinary tract infection type: site unspecified Hematuria presence: without hematuria Qualified Code(s): N39.0 - Urinary tract infection, site not specified (3) Altered mental status Current Visit: No Status: Acute Assessment and plan: H/o of parkinsons UTI w/ E Coli bacteremia Unaware of baseline Speech therapy recommends regular textures and thin liquids, one sip at a time MRI, EKG, Tox, ABG and new labs negative Patient is AAOx3 this morning. Significantly improved after event yesterday. ( Please refer to note). Requesting to return to facility. Qualifiers: Altered mental status type: somnolence Qualified Code(s): R40.0 - Somnolence (4) Hypertension Current Visit: No Status: Chronic Assessment and plan: Well controlled at this time. Continue home Zestril Qualifiers: Hypertension type: essential hypertension Qualified Code(s): I10 - Essential (primary) hypertension (5) [facility] resident Current Visit: Yes Status: Acute Assessment and plan: Social work consulted. Plan for d/c tomorrow. (6) Parkinsons disease Current Visit: No Status: Chronic Assessment and plan: Restarted Sinemet. Difficulty with speech and movements (7) DVT prophylaxis Current Visit: No Status: Acute Assessment and plan: Heparin 5000 units q8hrs - Subjective Interval history: Patient is alert this morning and cooperative No new complaints She is AAox3 C/o of mild non-productive cough Denies any abdominal pain, n/v, fevers, palpitations, CP, SOB or dysuria - Constitutional Vitals: Temp Pulse Resp BP Pulse Ox 97.3 F L 69 18 127/79 96 04/08/17 07:12 04/08/17 07:12 04/08/17 07:12 04/08/17 07:12 04/08/17 07:12 General appearance: Present: cooperative (speech is slow, difficult to understand), A&O X 3, no acute distress, answers questions appropriately - Head Head exam: Present: atraumatic, normocephalic - Eye Eye exam: Present: EOMI, normal appearance - ENT ENT exam: Present: mucous membranes moist - Neck Neck exam general surgery: Present: supple, trachea midline - Respiratory Respiratory exam: Present: wheezes (scattered). Absent: chest wall tenderness, decreased breath sounds, respiratory distress - Cardiovascular Cardiovascular exam: Present: RRR, +S1, +S2 - GI/Abdominal GI/Abdominal exam: Present: normal bowel sounds, soft. Absent: tenderness - Extremities Exam Extremities exam: Present: warm. Absent: calf tenderness, pedal edema, tenderness - Neurological Exam Neurological exam: Present: alert, oriented X3, speech deficit - Psychiatric Psychiatric exam: Present: anxious (worried about getting back to her facility) - Skin Skin exam: Present: dry, warm Internal Medicine: Result - Labs CBC & Chem 7: 04/08/17 04:56 04/08/17 04:56 Labs: Short CBC 04/07/17 04/08/17 Range/Units 13:53 04:56 WBC 13.2 H 10.6 (4.3-11.1) K/mcL Hgb 10.2 L 10.1 L (11.5-15.4) g/dL Hct 33.6 L 32.4 L (35.3-44.9) % Plt Count 348 345 (140-400) K/mcL Neutrophils # 9.9 H 8.0 (1.6-8.9) K/mcL BMP 04/07/17 04/08/17 13:53 04:56 Sodium 142 143 Potassium 3.8 3.7 Chloride 114 H 115 H Carbon Dioxide 22 L 22 L BUN 20 16 Creatinine 1.19 0.99 Glucose 110 H 98 Calcium 8.3 L 8.2 L - ABG Interpretation ABG results: ABG ABG pH 7.38 pH Units (7.32-7.45) 04/07/17 13:57 ABG pCO2 40 mmHg (35-45) 04/07/17 13:57 ABG pO2 133 mmHg (85-104) H 04/07/17 13:57 ABG O2 Saturation 99 % (95-98) H 04/07/17 13:57 PT/INR, D-dimer PT 13.5 Seconds (9.4-12.1) H 04/06/17 14:48 - Impressions Impressions Brain MRI 04/07/17 15:46 IMPRESSION: Motion degraded study. No acute intracranial abnormality. Age related involutional changes and mild chronic microvascular ischemic disease are similar to prior. D/ / 04/07/2017 20:15:37 Travis Gottlieb MD / agnes Interpreting Provider: Travis Gottlieb MD Consult Discharge Plan - Plan Referrals: Mitchell Farah MD [Primary Care Provider] - <Didier Ervin - Last Filed: 04/08/17 18:20> Date of Encounter: 04/08/17 - Constitutional Vitals: Temp Pulse Resp BP Pulse Ox 98.5 F 72 18 150/78 96 04/08/17 14:51 04/08/17 15:37 04/08/17 16:45 04/08/17 15:37 04/08/17 16:45 Internal Medicine: Result - Labs CBC & Chem 7: 04/08/17 04:56 04/08/17 04:56 Labs: Short CBC 04/08/17 Range/Units 04:56 WBC 10.6 (4.3-11.1) K/mcL Hgb 10.1 L (11.5-15.4) g/dL Hct 32.4 L (35.3-44.9) % Plt Count 345 (140-400) K/mcL Neutrophils # 8.0 (1.6-8.9) K/mcL BMP 04/08/17 04:56 Sodium 143 Potassium 3.7 Chloride 115 H Carbon Dioxide 22 L BUN 16 Creatinine 0.99 Glucose 98 Calcium 8.2 L - ABG Interpretation ABG results: ABG ABG pH 7.38 pH Units (7.32-7.45) 04/07/17 13:57 ABG pCO2 40 mmHg (35-45) 04/07/17 13:57 ABG pO2 133 mmHg (85-104) H 04/07/17 13:57 ABG O2 Saturation 99 % (95-98) H 04/07/17 13:57 PT/INR, D-dimer PT 13.5 Seconds (9.4-12.1) H 04/06/17 14:48 - Impressions Impressions Brain MRI 04/07/17 15:46 IMPRESSION: Motion degraded study. No acute intracranial abnormality. Age related involutional changes and mild chronic microvascular ischemic disease are similar to prior. D/ / 04/07/2017 20:15:37 Travis Gottlieb MD / agnes Interpreting Provider: Travis Gottlieb MD - Attending Attestation I conducted a face to face diagnostic evaluation of this patient and my medical decision-making was reviewed with the Resident Physician. I agree with the documented findings, disposition and treatment plan as described except to the extent set forth below: Patient is slightly more alert this morning. She was admitted for altered mental status and UTI. We will continue with Florencia. Follow-up blood and urine cultures. Didier Ervin MD
[2017-04-08] MEDS: 0.9 % Sodium Chloride 1,000 ML IVC SCH ×2 (07:58→16:38)
[2017-04-08] MEDS: Piperacillin/Tazobactam 3.375 GM/200 ML BAG IVPB SCH ×2 (07:58→16:37)
[2017-04-08] MEDS: Carbidopa/Levodopa ER 50/200 TABLET PO SCH ×4 (07:59→21:28)
[2017-04-08] MEDS: Aspirin 81 MG TAB.CHEW PO SCH (07:59)
[2017-04-08] MEDS: Benzonatate 100 MG CAPSULE PO SCH ×3 (09:34→21:28)
[2017-04-08] MEDS: Ipratropium/Albuterol Neb 3 ML IH SCH ×4 (10:09→20:48)
--- NOTE | 2017-04-08 18:13 | Electrocardiograph Report ---
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
[2017-04-09] MEDS: Ipratropium/Albuterol Neb 3 ML IH SCH ×7 (00:38→23:27)
[2017-04-09] MEDS: Piperacillin/Tazobactam 3.375 GM/200 ML BAG IVPB SCH ×3 (00:48→17:51)
[2017-04-09] MEDS: 0.9 % Sodium Chloride 1,000 ML IVC SCH ×3 (01:00→17:50)
[2017-04-09 06:00] LABS: Basophils % 0.5 %; Eosinophils # 0.1 K/mcL (0.0-0.6); Hematocrit 31.5 % (35.3-44.9); Hemoglobin 9.7 g/dL (11.5-15.4); Immature Granulocytes % 0.4 % (0-4); Lymphocytes # 1.3 K/mcL (0.6-4.6); Lymphocytes % 16.2 %; Mean Corpuscular HGB Conc 30.8 g/dL (31.6-35.5); Mean Corpuscular Hemoglobin 24.7 pg (28.0-33.3); Mean Corpuscular Volume 80.4 fL (83.0-100.0); Monocytes # 0.8 K/mcL (0.0-1.3); Monocytes % 9.8 %; Neutrophils # 5.9 K/mcL (1.6-8.9); Platelet Count 357 K/mcL (140-400); Red Blood Count 3.92 M/mcL (3.82-4.97); Red Cell Distribution Width 15.8 % (11.5-14.5); Segmented Neutrophils % 72.1 %
[2017-04-09] MEDS: *HR* Heparin 5,000 UNIT/ML VIAL SQ SCH ×3 (06:18→21:02)
[2017-04-09 06:21] LABS: BUN/Creatinine Ratio 12 (6-26); Blood Urea Nitrogen 12 mg/dL (8-23); Carbon Dioxide 18 mEq/L (23-29); Chloride 117 mEq/L (98-107); Glucose 136 mg/dL (70-105); Osmolality,Calculated 300 (280-300); Potassium 3.5 mEq/L (3.5-5.1); Sodium 144 mEq/L (136-145); eGFR For African Americans > 60 (> 60); eGFR For Non-African Americans 55 (> 60)
[2017-04-09] MEDS: Aspirin 81 MG TAB.CHEW PO SCH (09:31)
[2017-04-09] MEDS: Carbidopa/Levodopa ER 50/200 TABLET PO SCH ×4 (09:31→21:02)
[2017-04-09] MEDS: Benzonatate 100 MG CAPSULE PO SCH ×2 (09:31→14:48)
--- NOTE | 2017-04-09 15:32 | Internal Med Progress Note ---
Date of Encounter: 04/09/17 Time of Encounter: 15:30 - Assessment and plan (1) DVT prophylaxis Current Visit: No Status: Acute Assessment and plan: Heparin 5000 units q8hrs (2) Metabolic encephalopathy Current Visit: No Status: Acute Assessment and plan: Secondary to UTI. Improved with IV antibiotics and hydration. Continue with full precautions. Frequent reorientation. Avoid sedatives as much as possible to prevent sundowning and delirium. (3) Sepsis Current Visit: No Status: Acute Assessment and plan: Due to Escherichia coli. Continue with Zosyn. Repeat blood cultures today. Qualifiers: Sepsis type: Escherichia coli Qualified Code(s): A41.51 - Sepsis due to Escherichia coli [E. coli] (4) E coli bacteremia Current Visit: No Status: Acute Assessment and plan: Blood culture x2 with GN rods with E. Coli H/o MDRO urine Sensitivity report noted. We will continue with Zosyn. - Subjective Interval history: Patient was admitted to days ago for altered mental status. This was attributed to UTI and encephalopathy. Today the patient's mental status has significantly improved compared to yesterday. She is awake and alert and conversational., She has mild dementia but she is appropriate today. Denies chest pain and shortness of breath. - Constitutional Vitals: Temp Pulse Resp BP Pulse Ox 98.2 F 82 16 171/88 94 04/09/17 12:13 04/09/17 12:13 04/09/17 12:13 04/09/17 12:13 04/09/17 12:13 General appearance: Present: cooperative (speech is slow, difficult to understand), A&O X 3, no acute distress, answers questions appropriately - Cardiovascular Cardiovascular exam: Present: RRR, +S1, +S2. Absent: diastolic murmur, gallop, rubs, systolic murmur - GI/Abdominal GI/Abdominal exam: Present: normal bowel sounds, soft, no peritoneal signs. Absent: distended, tenderness - Extremities Exam Extremities exam: Present: warm, radial pulses palpable and symmetrical. Absent : calf tenderness, cyanotic, pedal edema - Skin Skin exam: Present: dry, intact Internal Medicine: Result - Labs CBC & Chem 7: 04/09/17 05:30 04/09/17 05:30 Labs: Short CBC 04/09/17 Range/Units 05:30 WBC 8.2 (4.3-11.1) K/mcL Hgb 9.7 L (11.5-15.4) g/dL Hct 31.5 L (35.3-44.9) % Plt Count 357 (140-400) K/mcL Neutrophils # 5.9 (1.6-8.9) K/mcL BMP 04/09/17 05:30 Sodium 144 Potassium 3.5 Chloride 117 H Carbon Dioxide 18 L BUN 12 Creatinine 0.97 Glucose 136 H Calcium 8.0 L - ABG Interpretation ABG results: ABG ABG pH 7.38 pH Units (7.32-7.45) 04/07/17 13:57 ABG pCO2 40 mmHg (35-45) 04/07/17 13:57 ABG pO2 133 mmHg (85-104) H 04/07/17 13:57 ABG O2 Saturation 99 % (95-98) H 04/07/17 13:57 PT/INR, D-dimer PT 13.5 Seconds (9.4-12.1) H 04/06/17 14:48 Consult Discharge Plan - Plan Referrals: Mitchell Farah MD [Primary Care Provider] -
[2017-04-09] MEDS: Acetaminophen 325 MG TABLET PO PRN (21:01)
[2017-04-10] MEDS: Piperacillin/Tazobactam 3.375 GM/200 ML BAG IVPB SCH ×4 (00:22→23:19)
[2017-04-10] MEDS: Ipratropium/Albuterol Neb 3 ML IH SCH ×6 (03:35→23:03)
[2017-04-10 03:56] LABS: Basophils # 0.1 K/mcL (0.0-0.2); Basophils % 0.6 %; Eosinophils # 0.4 K/mcL (0.0-0.6); Eosinophils % 4.8 %; Hematocrit 29.9 % (35.3-44.9); Hemoglobin 9.4 g/dL (11.5-15.4); Immature Granulocytes % 0.3 % (0-4); Lymphocytes # 1.4 K/mcL (0.6-4.6); Lymphocytes % 17.6 %; Mean Corpuscular HGB Conc 31.4 g/dL (31.6-35.5); Mean Corpuscular Hemoglobin 25.1 pg (28.0-33.3); Mean Corpuscular Volume 79.9 fL (83.0-100.0); Mean Platelet Volume 9.5 fL (9.4-12.4); Monocytes # 0.7 K/mcL (0.0-1.3); Monocytes % 9.2 %; Neutrophils # 5.4 K/mcL (1.6-8.9); Platelet Count 298 K/mcL (140-400); Red Blood Count 3.74 M/mcL (3.82-4.97); Red Cell Distribution Width 15.8 % (11.5-14.5); Segmented Neutrophils % 67.5 %
[2017-04-10 04:21] LABS: BUN/Creatinine Ratio 9 (6-26); Blood Urea Nitrogen 8 mg/dL (8-23); Calcium 8.2 mg/dL (8.6-10.3); Carbon Dioxide 21 mEq/L (23-29); Chloride 117 mEq/L (98-107); Glucose 112 mg/dL (70-105); Osmolality,Calculated 297 (280-300); Potassium 3.4 mEq/L (3.5-5.1); Sodium 144 mEq/L (136-145); eGFR For African Americans > 60 (> 60); eGFR For Non-African Americans > 60 (> 60)
[2017-04-10] MEDS: *HR* Heparin 5,000 UNIT/ML VIAL SQ SCH ×3 (04:24→21:00)
[2017-04-10] MEDS: 0.9 % Sodium Chloride 1,000 ML IVC SCH ×3 (04:24→23:19)
[2017-04-10] MEDS: Aspirin 81 MG TAB.CHEW PO SCH (10:32)
[2017-04-10] MEDS: Carbidopa/Levodopa ER 50/200 TABLET PO SCH ×4 (10:32→21:00)
--- NOTE | 2017-04-10 17:00 | Internal Med Progress Note ---
Date of Encounter: 04/10/17 Time of Encounter: 11:00 - Assessment and plan (1) DVT prophylaxis Current Visit: No Status: Acute Assessment and plan: Heparin 5000 units q8hrs (2) Metabolic encephalopathy Current Visit: No Status: Acute Assessment and plan: Secondary to UTI. Improved with IV antibiotics and hydration. Continue with delirium precautions. Frequent reorientation. Avoid sedatives as much as possible to prevent sundowning and delirium. Fall precautions. (3) Sepsis Current Visit: No Status: Acute Assessment and plan: Due to Escherichia coli. Continue with Zosyn. Follow up repeat blood cultures. Review of medical records reveals bacteremia with Escherichia coli in January 2017. Multiple prior urine cultures positive for ESBL Escherichia coli and Klebsiella. 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 Qualifiers: Sepsis type: Escherichia coli Qualified Code(s): A41.51 - Sepsis due to Escherichia coli [E. coli] (4) E coli bacteremia Current Visit: No Status: Acute Assessment and plan: Blood culture x2 with GN rods with E. Coli H/o MDRO urine Sensitivity report noted. We will continue with Zosyn. - Subjective Interval history: Patient was admitted for management of UTI and encephalopathy. Today the patient's mental status is significantly improved. She is awake and alert and conversational., She has mild dementia but she is appropriate today. Denies chest pain and shortness of breath. Denies dysuria. She admits to incontinence. Additional history obtained from the patient's son over the phone who says that she has had a progressive decline over the last several months and is mostly bedbound. The patient's son reports that she has had previous recent episodes of blood infection and multiple recurrent episodes of bladder infection. - Constitutional Vitals: Temp Pulse Resp BP Pulse Ox 97.6 F 72 18 167/82 96 04/10/17 16:23 04/10/17 16:23 04/10/17 16:23 04/10/17 16:23 04/10/17 16:23 General appearance: Present: cooperative (speech is slow, difficult to understand), A&O X 3, no acute distress, answers questions appropriately - Respiratory Respiratory exam: Present: CTAB. Absent: accessory muscle use, rales, rhonchi, wheezes - Cardiovascular Cardiovascular exam: Present: RRR, +S1, +S2. Absent: diastolic murmur, gallop, rubs, systolic murmur - GI/Abdominal GI/Abdominal exam: Present: normal bowel sounds, soft, no peritoneal signs. Absent: distended, tenderness - Extremities Exam Extremities exam: Present: warm, radial pulses palpable and symmetrical. Absent : calf tenderness, cyanotic, pedal edema - Skin Skin exam: Present: dry, intact Internal Medicine: Result - Labs CBC & Chem 7: 04/10/17 03:40 04/10/17 03:40 Labs: Short CBC 04/10/17 Range/Units 03:40 WBC 7.9 (4.3-11.1) K/mcL Hgb 9.4 L (11.5-15.4) g/dL Hct 29.9 L (35.3-44.9) % Plt Count 298 (140-400) K/mcL Neutrophils # 5.4 (1.6-8.9) K/mcL BMP 04/10/17 03:40 Sodium 144 Potassium 3.4 L Chloride 117 H Carbon Dioxide 21 L BUN 8 Creatinine 0.85 Glucose 112 H Calcium 8.2 L - ABG Interpretation ABG results: ABG ABG pH 7.38 pH Units (7.32-7.45) 04/07/17 13:57 ABG pCO2 40 mmHg (35-45) 04/07/17 13:57 ABG pO2 133 mmHg (85-104) H 04/07/17 13:57 ABG O2 Saturation 99 % (95-98) H 04/07/17 13:57 PT/INR, D-dimer PT 13.5 Seconds (9.4-12.1) H 04/06/17 14:48 Consult Discharge Plan - Plan Referrals: Mitchell Farah MD [Primary Care Provider] -
[2017-04-10] MEDS: Acetaminophen 325 MG TABLET PO PRN (21:00)
[2017-04-11] MEDS: Ipratropium/Albuterol Neb 3 ML IH SCH ×2 (03:42→07:25)
[2017-04-11 05:09] LABS: Basophils % 0.5 %; Eosinophils # 0.6 K/mcL (0.0-0.6); Eosinophils % 8.4 %; Hematocrit 30.5 % (35.3-44.9); Hemoglobin 9.6 g/dL (11.5-15.4); Immature Granulocytes % 0.4 % (0-4); Lymphocytes # 1.4 K/mcL (0.6-4.6); Lymphocytes % 18.6 %; Mean Corpuscular HGB Conc 31.5 g/dL (31.6-35.5); Mean Corpuscular Hemoglobin 25.1 pg (28.0-33.3); Mean Corpuscular Volume 79.6 fL (83.0-100.0); Monocytes # 0.6 K/mcL (0.0-1.3); Monocytes % 7.6 %; Neutrophils # 4.8 K/mcL (1.6-8.9); Platelet Count 307 K/mcL (140-400); Red Blood Count 3.83 M/mcL (3.82-4.97); Red Cell Distribution Width 15.8 % (11.5-14.5); Segmented Neutrophils % 64.5 %
[2017-04-11 05:20] LABS: BUN/Creatinine Ratio 8 (6-26); Blood Urea Nitrogen 7 mg/dL (8-23); Calcium 8.2 mg/dL (8.6-10.3); Carbon Dioxide 19 mEq/L (23-29); Chloride 117 mEq/L (98-107); Glucose 86 mg/dL (70-105); Osmolality,Calculated 295 (280-300); Potassium 3.4 mEq/L (3.5-5.1); Sodium 144 mEq/L (136-145); eGFR For African Americans > 60 (> 60); eGFR For Non-African Americans 59 (> 60)
[2017-04-11] MEDS: *HR* Heparin 5,000 UNIT/ML VIAL SQ SCH (06:25)
[2017-04-11] MEDS ORDERED: Potassium Chloride Elixir 20 MEQ/15 ML UDC PO ONE (07:45)
[2017-04-11 08:22] VITALS: BP 165/93
--- NOTE | 2017-04-11 09:36 | Discharge Summary ---
<Patrizia Reed - Last Filed: 04/11/17 09:45> Date of Encounter: 04/11/17 Time of Encounter: 09:34 - Discharge Diagnosis (1) Sepsis Priority: Primary Status: Acute Qualifiers: Sepsis type: Escherichia coli Qualified Code(s): A41.51 - Sepsis due to Escherichia coli [E. coli] (2) Metabolic encephalopathy Priority: Primary Status: Acute (3) E coli bacteremia Priority: Primary Status: Acute (4) UTI (urinary tract infection) Priority: Primary Status: Acute Qualifiers: Urinary tract infection type: site unspecified Hematuria presence: without hematuria Qualified Code(s): N39.0 - Urinary tract infection, site not specified (5) retirement resident Priority: Secondary Status: Chronic (6) Hypertension Priority: Secondary Status: Chronic Qualifiers: Hypertension type: essential hypertension Qualified Code(s): I10 - Essential (primary) hypertension (7) Parkinsons disease Priority: Secondary Status: Chronic (8) DVT prophylaxis Priority: Secondary Status: Acute - Discharge Medications Prescriptions: Ertapenem [INVanz] 1,000 mg IM DAILY #10 vial Home Medications: Rotigotine [Neupro] 1 each TD DAILY 03/15/16 [History] Polyethylene Glycol 3350 [MiraLAX] 17 gm PO DAILY #14 powd.pack 03/18/16 [Rx] Acetaminophen [Tylenol] 650 mg PO Q4-6H PRN 08/03/16 [History] Lisinopril [Zestril] 5 mg PO DAILY 08/03/16 [History] Sennosides/Docusate Sodium [Senna Plus] 1 each PO BID 08/03/16 [History] Ipratropium/Albuterol Neb [Duoneb] 3 ml IH QID PRN 11/02/16 [History] Mv-Mn/FA/Vit K1/Lycop/Lut/Zeax [Ocuvite Eye + Multi Tablet] 1 each PO DAILY [History] Octreotide Acetate (LAR) [Sandostatin Lar] 20 mg IM QMONTH #6 kit 02/15/17 [Rx] Aspirin 81 mg PO DAILY 04/06/17 [History] Carbidopa/Levodopa ER 50/200 [Sinemet ER 50-200 Tab] 0.5 each PO QID 04/06/17 [ History] Gabapentin [Neurontin] 600 mg PO TID 04/06/17 [History] Oxybutynin [Ditropan] 5 mg PO QID PRN 04/06/17 [History] Oxycodone HCl 5 mg PO Q4H PRN 04/06/17 [History] Ertapenem [INVanz] 1,000 mg IM DAILY #10 vial 04/11/17 [Rx] Allergies/Adverse Reactions: 3 Allergy/AdvReac Type Severity Reaction Status Date / Time cephalexin [From Keflex] Allergy Rash Verified 11/02/16 13:49 Date of admission: 04/07/17 06:20 Primary care physician: Mitchell Farah MD Consults: 04/07/17 07:52 Consult to Speech Therapy [CONS] Routine Comment: Evaluate, develop and implement POC Reason for Consult: Difficulty swallowing Call Completed: No 04/07/17 10:34 Consult to Physical Therapy [CONS] Routine Comment: Evaluate, develop and implement POC Reason for Consult: Evaluation, jail resident Consult to Employment Consultant [CONS] Routine Reason for SW Consult: jail resident, discharge planning 04/07/17 10:42 Consult to Employment Consultant [CONS] Routine Reason for SW Consult: Patient is from [facility], waiting on culture sensitivities -> hopeful d/c tomorrow. 04/08/17 12:19 Consult to Occupational Therapy [CONS] Routine Comment: Evaluate, develop and implement POC Reason for Consult: weakness weakness d/c planning Discharging clinician: Patrizia Reed Anticipated date of discharge: 04/11/17 - Patient Status Disposition: Transfer SNF Condition: Fair Functional capacity at discharge: wheelchair bound Overall status at discharge: patient is progressing back to baseline - Discharge Instructions Follow Up With: Mitchell Farah MD [Primary Care Provider] - - Diet and Activity Activity: as per physical therapy Diet: low fat, low cholesterol Interval History: Patient seen and examined. She states that she does not have any pain. She states that she has a "rattle" she will not get discharged because of it. Hospital course: Ms. Orlando is a 81 year old female jail resident admitted with a 1 day history of altered mental status. She was alert and oriented to her name only on admission. She had a positive urinalysis. She also has a recent history of multidrug resistant UTI with past sensitive showing sensitivity to Zosyn. Her chest x-ray in the ER was normal. Urine cultures and blood cultures were drawn in the ER and she was started on Zosyn. Her urine and blood cultures came back with Escherichia coli multidrug resistance this admission. She was treated with Zosyn throughout this admission and her acute metabolic encephalopathy resolved. Final sensitivities were obtained and the Escherichia coli is sensitive to Bactrim. [facility] to complete a 14 day of antibiotic therapy. On the day of discharge, she is alert and oriented 3. - Time Spent with Patient Total time spent providing and/or coordinating discharge services: - Constitutional Vitals: Temp Pulse Resp BP Pulse Ox 97.8 F 80 18 165/93 94 04/11/17 08:10 04/11/17 08:10 04/11/17 08:10 04/11/17 08:10 04/11/17 08:10 General appearance: Present: cooperative, A&O X 3, no acute distress, answers questions appropriately - Head Head exam: Present: atraumatic, normocephalic - Eye Eye exam: Present: PERRL, conjuntiva pink, sclera anicteric Pupils: Present: PERRL - Neck Neck exam general surgery: Present: supple, trachea midline. Absent: lymphadenopathy - Respiratory Respiratory exam: Present: wheezes (Expiratory ). Absent: rales, respiratory distress, rhonchi, tachypnea - Cardiovascular Cardiovascular exam: Present: RRR, +S1, +S2. Absent: diastolic murmur, gallop, rubs, systolic murmur - GI/Abdominal GI/Abdominal exam: Present: normal bowel sounds, soft, no peritoneal signs. Absent: distended, tenderness - Extremities Exam Extremities exam: Present: warm. Absent: pedal edema Additional comments: posterior tibial pulses palpable and symmetric - Neurological Exam Neurological exam: Present: CN II-XII intact, oriented X3, no focal deficits. Absent: pronater drift, facial droop, speech deficit - Skin Skin exam: Present: dry, intact <Didier Ervin - Last Filed: 04/11/17 10:21> Date of Encounter: 04/11/17 - Discharge Diagnosis (1) DVT prophylaxis Status: Acute (2) Metabolic encephalopathy Status: Acute (3) Sepsis Status: Acute Qualifiers: Sepsis type: Escherichia coli Qualified Code(s): A41.51 - Sepsis due to Escherichia coli [E. coli] (4) E coli bacteremia Status: Acute Date of admission: 04/07/17 06:20 Primary care physician: Mitchell Farah MD Consults: 04/07/17 07:52 Consult to Speech Therapy [CONS] Routine Comment: Evaluate, develop and implement POC Reason for Consult: Difficulty swallowing Call Completed: No 04/07/17 10:34 Consult to Physical Therapy [CONS] Routine Comment: Evaluate, develop and implement POC Reason for Consult: Evaluation, jail resident Consult to Employment Consultant [CONS] Routine Reason for SW Consult: jail resident, discharge planning 04/07/17 10:42 Consult to Employment Consultant [CONS] Routine Reason for SW Consult: Patient is from [facility], waiting on culture sensitivities -> hopeful d/c tomorrow. 04/08/17 12:19 Consult to Occupational Therapy [CONS] Routine Comment: Evaluate, develop and implement POC Reason for Consult: weakness weakness d/c planning Hospital course: Ms. Orlando is a 81 year old female - Time Spent with Patient Total time spent providing and/or coordinating discharge services: - Constitutional Vitals: Temp Pulse Resp BP Pulse Ox 97.8 F 80 18 165/93 94 04/11/17 08:10 04/11/17 08:10 04/11/17 08:10 04/11/17 08:10 04/11/17 08:10 - Attending Attestation I examined this patient and my medical decision-making was reviewed with the Resident Physician. I agree with the documented findings, disposition and treatment plan as described except to the extent set forth below. Patient's mental status is back to baseline. She is awake alert oriented 2. Appropriate. Heart exam reveals regular S1 and S2. Lungs are clear. Plan: We will discharge the patient back to the jail where she will continue with 10 days of ertapenem IV. 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 She has a listed allergy to cephalexin however she tolerated Zosyn well and there is low-level cross sensitivity between cephalosporins and carbapenems. She will receive the first dose of ertapenem this morning in the hospital under close monitoring. Discharge diagnosis: sepsis with ESBL Escherichia coli present on admission.
--- NOTE | 2017-04-11 09:40 | Physician Discharge Referral ---
ExtendedCare Referral Info Transfer To: [facility] Provider in Charge after Transfer: PCP Institutional Level of Care: Skilled - Diagnosis (1) Sepsis Status: Acute (2) Metabolic encephalopathy Status: Acute (3) E coli bacteremia Status: Acute (4) UTI (urinary tract infection) Status: Acute (5) jail resident Status: Chronic (6) Hypertension Status: Chronic (7) Parkinsons disease Status: Chronic (8) DVT prophylaxis Status: Acute Prognosis: Fair Aware of Diagnosis: Patient Aware of Prognosis: Patient - Transfer Medications Prescriptions: Sulfamethoxazole/Trimeth DS [Bactrim DS] 1 each PO BID #20 tablet Home Medications: Rotigotine [Neupro] 1 each TD DAILY 03/15/16 [History] Polyethylene Glycol 3350 [MiraLAX] 17 gm PO DAILY #14 powd.pack 03/18/16 [Rx] Acetaminophen [Tylenol] 650 mg PO Q4-6H PRN 08/03/16 [History] Lisinopril [Zestril] 5 mg PO DAILY 08/03/16 [History] Sennosides/Docusate Sodium [Senna Plus] 1 each PO BID 08/03/16 [History] Ipratropium/Albuterol Neb [Duoneb] 3 ml IH QID PRN 11/02/16 [History] Mv-Mn/FA/Vit K1/Lycop/Lut/Zeax [Ocuvite Eye + Multi Tablet] 1 each PO DAILY [History] Octreotide Acetate (LAR) [Sandostatin Lar] 20 mg IM QMONTH #6 kit 02/15/17 [Rx] Aspirin 81 mg PO DAILY 04/06/17 [History] Carbidopa/Levodopa ER 50/200 [Sinemet ER 50-200 Tab] 0.5 each PO QID 04/06/17 [ History] Gabapentin [Neurontin] 600 mg PO TID 04/06/17 [History] Oxybutynin [Ditropan] 5 mg PO QID PRN 04/06/17 [History] Oxycodone HCl 5 mg PO Q4H PRN 04/06/17 [History] Sulfamethoxazole/Trimeth DS [Bactrim DS] 1 each PO BID #20 tablet 04/11/17 [Rx] Allergies/Adverse Reactions: 3 Allergy/AdvReac Type Severity Reaction Status Date / Time cephalexin [From Keflex] Allergy Rash Verified 11/02/16 13:49 - Respiratory Orders Smoking Cessation: Smoking cessation has been advised. For more information, call the [place] Tobacco Quit Line at 9-358-FRFY-NOW. - Advance Directives Code Status: DNR-Arrest/Don't Intubate - Mobility Orders Chair - Rehabiliation Orders Rehab Potential: Fair Rehab Orders: Evaluation for Physical Therapy, Evaluation for Occupational Therapy - Diet Orders Cardiac CERTIFICATION: I certify that the transfer of the above named patient to an Extended Care Facility is necessary for the continuing treatment of the diagnosis listed. The above information is true and accurate reflection of patient's current condition. Confidential - Redisclosure prohibited without a patient's written consent.
[2017-04-11] MEDS: 0.9 % Sodium Chloride 1,000 ML IVC SCH (09:41)
[2017-04-11] MEDS: Aspirin 81 MG TAB.CHEW PO SCH (09:42)
[2017-04-11] MEDS: Carbidopa/Levodopa ER 50/200 TABLET PO SCH (09:42)
[2017-04-11] MEDS ORDERED: Sennosides/Docusate Sodium TABLET PO ONE (10:18)
[2017-04-11] MEDS ORDERED: Ertapenem 1,000 MG in Water for inj. (sterile) 20 ML 10 ML IVP SCH (11:00)
== END 2017-04-11 12:05 | DRG 871 ==
LOC: EMEROO 14:26 → 3ANU 14:26 → SUATTDRO 04-07 06:20
PROVIDERS: ADMIT Internal Medicine; ATTEND Internal Medicine

== ENCOUNTER 2017-04-24 18:22 | Inpatient (IN) ==
[2017-04-24 19:12] LABS: Basophils # 0.1 K/mcL (0.0-0.2); Basophils % 0.6 %; Eosinophils # 0.4 K/mcL (0.0-0.6); Eosinophils % 4.6 %; Hematocrit 38.7 % (35.3-44.9); Hemoglobin 11.8 g/dL (11.5-15.4); Immature Granulocytes % 0.2 % (0-4); Lymphocytes # 1.7 K/mcL (0.6-4.6); Lymphocytes % 20.9 %; Mean Corpuscular HGB Conc 30.5 g/dL (31.6-35.5); Mean Corpuscular Hemoglobin 24.8 pg (28.0-33.3); Mean Corpuscular Volume 81.3 fL (83.0-100.0); Mean Platelet Volume 10.2 fL (9.4-12.4); Monocytes # 0.9 K/mcL (0.0-1.3); Monocytes % 10.8 %; Neutrophils # 5.1 K/mcL (1.6-8.9); Platelet Count 288 K/mcL (140-400); Red Blood Count 4.76 M/mcL (3.82-4.97); Segmented Neutrophils % 62.9 %
[2017-04-24 19:17] LABS: INR 1.2; Prothrombin Time 12.5 Seconds (9.4-12.1)
--- NOTE | 2017-04-24 19:17 | Emergency Department Note ---
Disposition Clinical Impression: Dementia Qualifiers: Dementia type: Alzheimer's disease Alzheimer's disease onset: unspecified onset Dementia behavioral disturbance: without behavioral disturbance Qualified Code(s): G30.9 - Alzheimer's disease, unspecified CVA (cerebral vascular accident) Qualifiers: CVA mechanism: unspecified Qualified Code(s): I63.9 - Cerebral infarction, unspecified Disposition: Admitted As Inpatient Condition: Fair Time of Disposition: 19:51 Altered Mental Status HPI - General Chief Complaint: ED Altered Mental Status Stated Complaint: AMS Time Seen by Provider: 04/24/17 18:25 Source: patient, EMS Mode of arrival: EMS Limitations: altered mental status Nursing Notes Reviewed: Yes Vital Signs Reviewed: Yes - History of Present Illness HPI Narrative: Ms. Oralndo is an 82-year-old woman with a history of Parkinson's, mild Alzheimer's dementia who presents to the ED with altered mental status as of apparently 5:30 PM today. She is accompanied by family who says that she appeared somewhat confused last evening, and then today was noticed that she was confused and unable to form words. This is apparently new for the patient who generally is alert and oriented 3. The family that is present is unable to give more information regarding this incident. I called and spoke with one of the nurses from [facility], where the patient resides, and they state that prior to 5:30 the patient was well. There is no documentation that the patient had any status changes prior to that 5:30 timeframe. Upon noticing, they immediately called for transport to the emergency room. The patient does not have any acute complaints of pain, or discomfort. - Related Data Home Medications Medication Instructions Recorded Confirmed Rotigotine [Neupro] 1 each TD DAILY 03/15/16 04/06/17 Acetaminophen [Tylenol] 650 mg PO Q4-6H PRN 08/03/16 04/06/17 Lisinopril [Zestril] 5 mg PO DAILY 08/03/16 04/06/17 Sennosides/Docusate Sodium [Senna 1 each PO BID 08/03/16 04/06/17 Plus] Ipratropium/Albuterol Neb [Duoneb] 3 ml IH QID PRN 11/02/16 04/06/17 Mv-Mn/FA/Vit K1/Lycop/Lut/Zeax 1 each PO DAILY 11/02/16 04/06/17 [Ocuvite Eye + Multi Tablet] Aspirin 81 mg PO DAILY 04/06/17 04/06/17 Carbidopa/Levodopa ER 50/200 0.5 each PO QID 04/06/17 04/06/17 [Sinemet ER 50-200 Tab] Gabapentin [Neurontin] 600 mg PO TID 04/06/17 04/06/17 Oxybutynin [Ditropan] 5 mg PO QID PRN 04/06/17 04/06/17 Oxycodone HCl 5 mg PO Q4H PRN 04/06/17 04/06/17 Previous Rx's Medication Instructions Recorded Polyethylene Glycol 3350 [MiraLAX] 17 gm PO DAILY #14 powd.pack 03/18/16 Octreotide Acetate (LAR) 20 mg IM QMONTH #6 kit 02/15/17 [Sandostatin Lar] Ertapenem [INVanz] 1,000 mg IM DAILY #10 vial 04/11/17 Allergies Allergy/AdvReac Type Severity Reaction Status Date / Time cephalexin [From Keflex] Allergy Rash Verified 11/02/16 13:49 Past Medical History - Past Medical History Medical history: Reports: arthritis, cancer, coronary artery disease, CVA, dementia, GERD, hyperlipidemia, hypertension, malignancy, peripheral artery disease, renal disease, venous stasis, other Surgical history: Reports: appendectomy, colectomy, herniorrhaphy, hip replacement, orthopedic, other, other Psychiatric history: Reports: anxiety, depression - Social History Smoking Status: Never smoker Smokeless Tobacco Status: No Alcohol use: Reports: none Drug use: Reports: none Physical Exam - General Limitations: altered mental status General appearance: alert, in no apparent distress - Head Head exam: atraumatic, normocephalic - Eye Eye exam: Present: normal appearance, PERRL, EOMI. Absent: nystagmus - ENT ENT exam: normal exam - Neck Neck exam: Present: normal inspection - Chest Chest inspection: Present: normal inspection, symmetric chest wall rise - Respiratory Respiratory exam: Present: normal lung sounds bilaterally - Cardiovascular Cardiovascular exam: Present: regular rate, normal rhythm, normal heart sounds - Abdominal Exam Abdominal exam: Present: soft, Non-Tender, tenderness - Extremities Exam Extremities exam: Present: normal inspection - Expanded Lower Extremity Exam Neurovascular/Tendon exam: Present: sensory deficit (that is not new). Absent: motor deficit - Back Exam Back exam: Present: normal inspection - Neurological Exam Neurological exam: Present: alert, CN II-XII intact, motor sensory deficit ( Hypokinesis and left), other - Expanded Neurological Exam Patient oriented to: Present: person Speech: Present: expressive aphasia Cranial nerves: EOM function (II, III, IV, ): Normal, facial sensation (V): Normal, facial palsy (VII): Abnormal Left, tongue deviation (XII): Normal Cerebellar function: finger to nose: Normal Motor strength - LUE: 3/5 Motor strength - RUE: 4/5 Motor strength - LLE: 3/5 Motor strength - RLE: 4/5 Upper motor neuron exam: david neglect: Absent bilaterally, pronator drift: Absent bilaterally, Babinski sign: Absent bilaterally Sensory exam upper extremity: light touch: Normal Sensory exam lower extremity: light touch: Normal Coma Scale Eye Opening: Spontaneous Coma Scale Motor Response: Obeys Commands Coma Scale Verbal Response: Confused Coma Scale Total: 14 Course Vital Signs Temperature 98.2 F 04/24/17 18:25 Pulse Rate 68 04/24/17 18:25 Respiratory Rate 18 04/24/17 18:25 Blood Pressure 150/103 04/24/17 18:25 O2 Sat by Pulse Oximetry 99 04/24/17 18:25 Temperature 98.2 F 04/24/17 18:25 Pulse Rate 66 04/24/17 19:30 Respiratory Rate 16 04/24/17 20:22 Blood Pressure 122/67 04/24/17 20:22 O2 Sat by Pulse Oximetry 97 04/24/17 19:11 Oxygen Delivery Oxygen Delivery Room Air Altered Mental Status - [facility] Narrative Medical decision making narrative: I reviewed the patient's labs and imaging. The patient presented to the ED with an apparently new altered mental status. There was quite some confusion in regard to when this altered mental status began when comparing stories with family versus [facility]. According to the [facility] the patient's mental status changed at approximately 5:30, where she was normal prior to that. Family says that they noticed confusion and some slurred speech as long ago as last night. Stroke alert was called immediately after seeing the patient due to NIH stroke scale of 7, with some hypokinesis of the lip and dysarthria. CT of the head initially demonstrating no acute process. Initial EKG was questionable for atrial fibrillation, however repeat EKG did demonstrate what appeared to be sinus rhythm. I spoke with the neurologist at [facility] Dr. Douglas who then evaluated the patient via video determined that because we do not have an exact time at which this began, TPA would not be indicated. She did suggest that we get an MRI and a CTA of the head, which I ordered. I spoke with hospitalist who accepted this patient for admission.family was made aware of the patient's status, and they understand and agree with the current course of treatment. - Medical Records Medical records reviewed: Yes I reviewed the patient's medical records. - Lab Data Lab results reviewed: Yes I reviewed the patient's lab results. Result diagrams: 04/24/17 19:02 04/24/17 19:02 Lab Results 04/24/17 04/24/17 04/24/17 Range/Units 19:02 19:02 19:02 WBC 8.1 (4.3-11.1) K/mcL RBC 4.76 (3.82-4.97) M/mcL Hgb 11.8 (11.5-15.4) g/dL Hct 38.7 (35.3-44.9) % MCV 81.3 L (83.0-100.0) fL MCH 24.8 L (28.0-33.3) pg MCHC 30.5 L (31.6-35.5) g/dL RDW 17.0 H (11.5-14.5) % Plt Count 288 (140-400) K/mcL MPV 10.2 (9.4-12.4) fL Immature Gran % 0.2 (0-4) % Seg Neutrophils % 62.9 % Lymphocytes % 20.9 % Monocytes % 10.8 % Eosinophils % 4.6 % Basophils % 0.6 % Neutrophils # 5.1 (1.6-8.9) K/mcL Lymphocytes # 1.7 (0.6-4.6) K/mcL Monocytes # 0.9 (0.0-1.3) K/mcL Eosinophils # 0.4 (0.0-0.6) K/mcL Basophils # 0.1 (0.0-0.2) K/mcL PT 12.5 H (9.4-12.1) Seconds INR 1.2 APTT 30.0 (26.0-36.0) Seconds Sodium 141 (136-145) mEq/L Potassium 3.4 L (3.5-5.1) mEq/L Chloride 105 (98-107) mEq/L Carbon Dioxide 29 (23-29) mEq/L BUN 15 (8-23) mg/dL Creatinine 0.68 (0.60-1.20) mg/dL Est GFR ( Amer) > 60 (> 60) Est GFR (Non-Af Amer) > 60 (> 60) BUN/Creatinine Ratio 22 (6-26) Glucose 117 H (70-105) mg/dL Calculated Osmolality 294 (280-300) Lactic Acid (0.5-2.2) mmol/L Calcium 9.2 (8.6-10.3) mg/dL Total Bilirubin 0.7 (0.3-1.0) mg/dL Direct Bilirubin 0.2 (0.0-0.2) mg/dL Indirect Bilirubin 0.5 (0.0-1.2) mg/dL AST 11 L (13-39) Units/L ALT 4 L (7-52) Units/L Alkaline Phosphatase 101 (34-104) Units/L Troponin I (< 0.04) ng/mL Serum Total Protein 6.9 (6.4-8.9) g/dL Albumin 3.6 (3.5-5.7) g/dL Globulin 3.3 (2.4-3.5) g/dL Albumin/Globulin Ratio 1.1 (1.1-2.2) Beta-Hydroxybutyric Acd (0.02-0.27) mmol/L Urine Color (Yellow) Urine Clarity (Clear) Urine pH (5.0-8.0) pH Units Ur Specific Lorida (1.010-1.025) Urine Protein (Neg-Trace) mg/dL Urine Glucose (UA) (Normal) mg/dL Urine Ketones (Negative) mg/dL Urine Blood (Negative) Urine Nitrite (Negative) Urine Bilirubin (Negative) Urine Urobilinogen (Normal) mg/dL Ur Leukocyte Esterase (Negative) Urine Microscopic RBC (0-3) per hpf Urine Microscopic WBC (0-3) per hpf Ur Squamous Epith Cells (None-Few) per lpf Urine Bacteria (None-Few) per hpf Hyaline Casts (None-Few) per lpf Ur Culture Indicated? (NO) Urine Opiates Screen (Otrbwk=388) ng/mL Ur Barbiturates Screen (Ahwgwa=510) ng/mL Ur Phencyclidine Scrn (Cutoff=25) ng/mL Ur Amphetamines Screen (Ydtyon=5992) ng/mL U Benzodiazepines Scrn (Mtfexf=855) ng/mL Urine Cocaine Screen (Cutoff= 300) ng/mL U Marijuana (THC) Screen (Cutoff = 50) ng/mL 04/24/17 04/24/17 04/24/17 Range/Units 19:02 19:02 19:02 WBC (4.3-11.1) K/mcL RBC (3.82-4.97) M/mcL Hgb (11.5-15.4) g/dL Hct (35.3-44.9) % MCV (83.0-100.0) fL MCH (28.0-33.3) pg MCHC (31.6-35.5) g/dL RDW (11.5-14.5) % Plt Count (140-400) K/mcL MPV (9.4-12.4) fL Immature Gran % (0-4) % Seg Neutrophils % % Lymphocytes % % Monocytes % % Eosinophils % % Basophils % % Neutrophils # (1.6-8.9) K/mcL Lymphocytes # (0.6-4.6) K/mcL Monocytes # (0.0-1.3) K/mcL Eosinophils # (0.0-0.6) K/mcL Basophils # (0.0-0.2) K/mcL PT (9.4-12.1) Seconds INR APTT (26.0-36.0) Seconds Sodium (136-145) mEq/L Potassium (3.5-5.1) mEq/L Chloride (98-107) mEq/L Carbon Dioxide (23-29) mEq/L BUN (8-23) mg/dL Creatinine (0.60-1.20) mg/dL Est GFR ( Amer) (> 60) Est GFR (Non-Af Amer) (> 60) BUN/Creatinine Ratio (6-26) Glucose (70-105) mg/dL Calculated Osmolality (280-300) Lactic Acid 1.4 (0.5-2.2) mmol/L Calcium (8.6-10.3) mg/dL Total Bilirubin (0.3-1.0) mg/dL Direct Bilirubin (0.0-0.2) mg/dL Indirect Bilirubin (0.0-1.2) mg/dL AST (13-39) Units/L ALT (7-52) Units/L Alkaline Phosphatase (34-104) Units/L Troponin I < 0.03 (< 0.04) ng/mL Serum Total Protein (6.4-8.9) g/dL Albumin (3.5-5.7) g/dL Globulin (2.4-3.5) g/dL Albumin/Globulin Ratio (1.1-2.2) Beta-Hydroxybutyric Acd 0.16 (0.02-0.27) mmol/L Urine Color (Yellow) Urine Clarity (Clear) Urine pH (5.0-8.0) pH Units Ur Specific Lorida (1.010-1.025) Urine Protein (Neg-Trace) mg/dL Urine Glucose (UA) (Normal) mg/dL Urine Ketones (Negative) mg/dL Urine Blood (Negative) Urine Nitrite (Negative) Urine Bilirubin (Negative) Urine Urobilinogen (Normal) mg/dL Ur Leukocyte Esterase (Negative) Urine Microscopic RBC (0-3) per hpf Urine Microscopic WBC (0-3) per hpf Ur Squamous Epith Cells (None-Few) per lpf Urine Bacteria (None-Few) per hpf Hyaline Casts (None-Few) per lpf Ur Culture Indicated? (NO) Urine Opiates Screen (Dsgrbc=883) ng/mL Ur Barbiturates Screen (Kdizpg=895) ng/mL Ur Phencyclidine Scrn (Cutoff=25) ng/mL Ur Amphetamines Screen (Grpnzc=7754) ng/mL U Benzodiazepines Scrn (Pikixs=428) ng/mL Urine Cocaine Screen (Cutoff= 300) ng/mL U Marijuana (THC) Screen (Cutoff = 50) ng/mL 04/24/17 04/24/17 Range/Units 19:43 19:43 WBC (4.3-11.1) K/mcL RBC (3.82-4.97) M/mcL Hgb (11.5-15.4) g/dL Hct (35.3-44.9) % MCV (83.0-100.0) fL MCH (28.0-33.3) pg MCHC (31.6-35.5) g/dL RDW (11.5-14.5) % Plt Count (140-400) K/mcL MPV (9.4-12.4) fL Immature Gran % (0-4) % Seg Neutrophils % % Lymphocytes % % Monocytes % % Eosinophils % % Basophils % % Neutrophils # (1.6-8.9) K/mcL Lymphocytes # (0.6-4.6) K/mcL Monocytes # (0.0-1.3) K/mcL Eosinophils # (0.0-0.6) K/mcL Basophils # (0.0-0.2) K/mcL PT (9.4-12.1) Seconds INR APTT (26.0-36.0) Seconds Sodium (136-145) mEq/L Potassium (3.5-5.1) mEq/L Chloride (98-107) mEq/L Carbon Dioxide (23-29) mEq/L BUN (8-23) mg/dL Creatinine (0.60-1.20) mg/dL Est GFR ( Amer) (> 60) Est GFR (Non-Af Amer) (> 60) BUN/Creatinine Ratio (6-26) Glucose (70-105) mg/dL Calculated Osmolality (280-300) Lactic Acid (0.5-2.2) mmol/L Calcium (8.6-10.3) mg/dL Total Bilirubin (0.3-1.0) mg/dL Direct Bilirubin (0.0-0.2) mg/dL Indirect Bilirubin (0.0-1.2) mg/dL AST (13-39) Units/L ALT (7-52) Units/L Alkaline Phosphatase (34-104) Units/L Troponin I (< 0.04) ng/mL Serum Total Protein (6.4-8.9) g/dL Albumin (3.5-5.7) g/dL Globulin (2.4-3.5) g/dL Albumin/Globulin Ratio (1.1-2.2) Beta-Hydroxybutyric Acd (0.02-0.27) mmol/L Urine Color Yellow (Yellow) Urine Clarity Cloudy A (Clear) Urine pH 5.5 (5.0-8.0) pH Units Ur Specific Lorida 1.015 (1.010-1.025) Urine Protein 30 H (Neg-Trace) mg/dL Urine Glucose (UA) Normal (Normal) mg/dL Urine Ketones Negative (Negative) mg/dL Urine Blood Negative (Negative) Urine Nitrite Negative (Negative) Urine Bilirubin Negative (Negative) Urine Urobilinogen Normal (Normal) mg/dL Ur Leukocyte Esterase Trace H (Negative) Urine Microscopic RBC 0-3 (0-3) per hpf Urine Microscopic WBC 30-50 H (0-3) per hpf Ur Squamous Epith Cells Many H (None-Few) per lpf Urine Bacteria Many H (None-Few) per hpf Hyaline Casts None Seen (None-Few) per lpf Ur Culture Indicated? NO. (NO) Urine Opiates Screen Negative (Rmniwb=274) ng/mL Ur Barbiturates Screen Negative (Pxcrsd=875) ng/mL Ur Phencyclidine Scrn Negative (Cutoff=25) ng/mL Ur Amphetamines Screen Negative (Oogwvd=5716) ng/mL U Benzodiazepines Scrn Negative (Ibjlyu=274) ng/mL Urine Cocaine Screen Negative (Cutoff= 300) ng/mL U Marijuana (THC) Screen Negative (Cutoff = 50) ng/mL - EKG Data EKG attestation: Yes I reviewed and interpreted this EKG. EKG results narrative: EKG demonstrates study but appears to be in sinus rhythm with a ventricular rate of 64 tenriism 107 QTC 413, questionable MO interval and no acute ischemic changes TPA Checklist - Source Information Source: Patient - LKW: 3-4.5 hrs Add. Warnings/Precautions Patient/family understanding: The patient/family members have been counseled and understood the risk, benefit , and alternatives of treatment. Critical Care Time Critical Care Time: Yes Total Critical Care Time: 35 Attestation: Critical care time 35 minutes managing patient's altered mental status. Attestation Statement - Attestation Attestation: Patient was seen with resident physician. I reviewed the history, physical, assessment and plan, and agree with the findings. I also personally evaluated this patient and had ukdu-of-fmzy time with this patient. A 2-year-old female brought via EMS to the emergency Department from [facility] with altered mental status. There is a lot of confusion terms of when the onset of symptoms work. Family says that she was talking okay but little bit more confused last night. The individual the resident physician spoke with on the phone said there is a distinct change in her speech patterns at 5:30 specifically. Another individual that was spoke to at the [facility] said that she had not been acting right since she got back from the hospital. By the conclusion of talking with everyone were no closer to determining when her symptom onset started. We used a 5:30 time as a benchmark and activated the stroke protocol as the patient's chief complaint was slurred speech. She has dementia and was unable to provide any substantial history. On examination vital signs are stable. ENT showed no acute traumatic injury. Pupils are equal and reactive. Heart and lungs were normal. Abdomen was soft and nontender. Extremities patient moves all no obvious injuries. NIH scale please see resident note. ED course. We did activate the stroke protocol. CT scan was negative or acute abnormalities. EKG was indeterminate due to poor study. There is no obvious abnormalities. Chest x-ray showed no acute changes. Labs are partially unremarkable. Neurology evaluation resulted in them feeling that TPA was not indicated. They felt she could stay here with appropriate MRI/MRA. These tests were ordered. We discussed case the hospitalist service to arrange for admission. Patient remained hemodynamically stable on the ER. I agree with resident physician assessment and plan. Critical care time for this patient 35 minutes.
[2017-04-24 19:29] LABS: Alanine Aminotransferase 4 Units/L (7-52); Albumin 3.6 g/dL (3.5-5.7); Albumin/Globulin Ratio 1.1 (1.1-2.2); Alkaline Phosphatase 101 Units/L (34-104); Aspartate Amino Transferase 11 Units/L (13-39); BUN/Creatinine Ratio 22 (6-26); Bilirubin,Direct 0.2 mg/dL (0.0-0.2); Bilirubin,Indirect 0.5 mg/dL (0.0-1.2); Bilirubin,Total 0.7 mg/dL (0.3-1.0); Blood Urea Nitrogen 15 mg/dL (8-23); Calcium 9.2 mg/dL (8.6-10.3); Carbon Dioxide 29 mEq/L (23-29); Chloride 105 mEq/L (98-107); Globulin 3.3 g/dL (2.4-3.5); Glucose 117 mg/dL (70-105); Osmolality,Calculated 294 (280-300); Potassium 3.4 mEq/L (3.5-5.1); Sodium 141 mEq/L (136-145); Total Protein 6.9 g/dL (6.4-8.9); eGFR For African Americans > 60 (> 60); eGFR For Non-African Americans > 60 (> 60)
[2017-04-24 19:52] LABS: Bilirubin,Urine Negative (Negative); Blood,Urine Negative (Negative); Clarity,Urine Cloudy (Clear); Color,Urine Yellow (Yellow); Glucose,Urine (UA) Normal (Normal); Ketones,Urine Negative (Negative); Leukocyte Esterase,Urine Trace (Negative); Nitrite,Urine Negative (Negative); PH,Urine 5.5 pH Units (5.0-8.0); Protein,Urine 30 mg/dL (Neg-Trace); Specific Gravity,Urine 1.015 (1.010-1.025); Urobilinogen,Urine Normal (Normal)
[2017-04-24 19:54] LABS: Bacteria,Urine Many per hpf (None-Few); Hyaline Casts,Urine None Seen per lpf (None-Few); RBC,Urine 0-3 per hpf (0-3); Squamous Epithelial Cell,Urine Many per lpf (None-Few); WBC,Urine 30-50 per hpf (0-3)
[2017-04-24 19:58] LABS: Amphetamine Screen,Urine Negative ng/mL (Cutoff=1000); Barbiturate Screen,Urine Negative ng/mL (Cutoff=200); Benzodiazepines Screen,Urine Negative ng/mL (Cutoff=200); Cannabinoid Screen,Urine Negative ng/mL (Cutoff = 50); Cocaine Screen,Urine Negative ng/mL (Cutoff= 300); Opiate Screen,Urine Negative ng/mL (Cutoff=300); Phencyclidine Screen,Urine Negative ng/mL (Cutoff=25)
[2017-04-24] MEDS ORDERED: Naloxone 0.4 MG/ML INJ IVP PRN (21:22)
[2017-04-24] MEDS ORDERED: Acetaminophen 325 MG TABLET PO PRN (21:22)
--- NOTE | 2017-04-24 21:35 | Internal Med History&Physical ---
Date of Encounter: 04/24/17 Time of Encounter: 20:00 Assessment and Plan (1) Stroke or transient ischemic attack (TIA) diagnosed during current admission Current visit: Yes Status: Acute Pt has slurred speech and mild left facial drop, slurred speech seems improved in ER, consider Stroke or TIA - Place pt on continuous cardiac monitoring. - Echo, duplex carotid. - CT and CTA head unremarkable. - Plan for MRI, order placed. - PT/OT, Swallow evaluation. Keep npo now, IVF - May consider antiplatelet and statin after diet resumed. (2) Parkinsons disease Current visit: No Status: Chronic Cont home med as diet resumed. 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 (6) Alzheimer disease Current visit: No Status: Chronic Cont home med as diet resumed. Qualifiers: Alzheimer's disease onset: unspecified onset Dementia behavioral disturbance: without behavioral disturbance Qualified Code(s): G30.9 - Alzheimer's disease, unspecified; F02.80 - Dementia in other diseases classified elsewhere without behavioral disturbance Internal Medicine - H&P: HPI Chief complaint: Slurred speech Admitted From: Long-term Nursing Facility Plans for Post Hospital Care: Transfer [facility] History of present illness: Ms. Orlando is a 82 year old female with Hx of Parkinson disease, HTN, Hx of UTI with recnt hospitalization, carcinoid tumor, sent to ER from [facility] for slurred speech. Pt has baseline dementia, AAO x 1. Hx obtained from pt's son at bedside. Family was called at around 5 pm by [facility] and said pt has slurred speech, cannot form full sentences. Pt was sent to ER and stroke alert started. [facility] neurology was consulted in ER, pt is not a candidate for TPA. CT head done, no hemorrhage. Pt was admitted for further evaluation. Pt is generally bedbound in [place] due to Parkinson disease. When I saw her in ER, she can speak in full sentences, denies chest pain, nausea, or dysuria. Past Med Surg Social Fam HX - Past Medical History Medical history: arthritis, cancer, coronary artery disease, CVA, dementia, GERD , hyperlipidemia, hypertension, malignancy, peripheral artery disease, renal disease, venous stasis, other Psychiatric history: anxiety, depression - Past Surgical History Surgical History: appendectomy, colectomy, herniorrhaphy, hip replacement, orthopedic, other, other - Social History Smoking Status: Never smoker Smokeless Tobacco Status: No Alcohol use: none Drug use: none - Family History Mother Living Status: Internal Medicine - H&P: Meds Rotigotine [Neupro] 1 each TD DAILY 03/15/16 [History] Polyethylene Glycol 3350 [MiraLAX] 17 gm PO DAILY #14 powd.pack 03/18/16 [Rx] Acetaminophen [Tylenol] 650 mg PO Q4-6H PRN 08/03/16 [History] Lisinopril [Zestril] 5 mg PO DAILY 08/03/16 [History] Sennosides/Docusate Sodium [Senna Plus] 1 each PO BID 08/03/16 [History] Ipratropium/Albuterol Neb [Duoneb] 3 ml IH QID PRN 11/02/16 [History] Mv-Mn/FA/Vit K1/Lycop/Lut/Zeax [Ocuvite Eye + Multi Tablet] 1 each PO DAILY [History] Octreotide Acetate (LAR) [Sandostatin Lar] 20 mg IM QMONTH #6 kit 02/15/17 [Rx] Aspirin 81 mg PO DAILY 04/06/17 [History] Carbidopa/Levodopa ER 50/200 [Sinemet ER 50-200 Tab] 0.5 each PO QID 04/06/17 [ History] Gabapentin [Neurontin] 600 mg PO TID 04/06/17 [History] Oxybutynin [Ditropan] 5 mg PO QID PRN 04/06/17 [History] Oxycodone HCl 5 mg PO Q4H PRN 04/06/17 [History] Ertapenem [INVanz] 1,000 mg IM DAILY #10 vial 04/11/17 [Rx] 3 Allergy/AdvReac Type Severity Reaction Status Date / Time cephalexin [From Keflex] Allergy Rash Verified 11/02/16 13:49 All Systems PM: A 10-system review of systems was performed and is negative for pertinent findings except as documented above in the HPI. - Constitutional Vitals: Temp Pulse Resp BP Pulse Ox 98.2 F 66 16 122/67 97 04/24/17 18:25 04/24/17 19:30 04/24/17 20:22 04/24/17 20:22 04/24/17 19:11 General appearance: Present: A&O X 1, no acute distress, answers questions appropriately - Head Head exam: Present: atraumatic, normocephalic - Eye Eye exam: Present: PERRL, conjuntiva pink, sclera anicteric Pupils: Present: PERRL - Neck Neck exam general surgery: Present: supple, trachea midline. Absent: lymphadenopathy - Respiratory Respiratory exam: Present: CTAB. Absent: accessory muscle use, rales, rhonchi, wheezes - Cardiovascular Cardiovascular exam: Present: RRR, +S1, +S2. Absent: diastolic murmur, gallop, rubs, systolic murmur - GI/Abdominal GI/Abdominal exam: Present: normal bowel sounds, soft, no peritoneal signs. Absent: distended, tenderness - Extremities Exam Extremities exam: Present: warm, radial pulses palpable and symmetrical. Absent : calf tenderness, cyanotic, pedal edema - Neurological Exam Neurological exam: Present: CN II-XII intact, motor sensory deficit (Motor 3/5 b /l UP, 2/5 B/L LE), no focal deficits, facial droop (Mild left facial drop). Absent: pronater drift, speech deficit - Skin Skin exam: Present: dry, intact Internal Med - H&P Results - Labs CBC & Chem 7: 04/24/17 19:02 04/24/17 19:02 - EKG Data -: EKG Interpreted by Myself (Pt is shaking which makes EKG difficult to read, to me it is regular narrow) Rate: normal
[2017-04-25] MEDS: D5% in 0.45% NACL 1,000 ML IVC SCH ×2 (00:30→13:52)
[2017-04-25 05:41] LABS: Basophils # 0.1 K/mcL (0.0-0.2); Basophils % 0.8 %; Eosinophils # 0.4 K/mcL (0.0-0.6); Eosinophils % 5.6 %; Hematocrit 33.3 % (35.3-44.9); Hemoglobin 10.4 g/dL (11.5-15.4); Immature Granulocytes % 0.2 % (0-4); Lymphocytes # 1.1 K/mcL (0.6-4.6); Lymphocytes % 16.6 %; Mean Corpuscular HGB Conc 31.2 g/dL (31.6-35.5); Mean Corpuscular Hemoglobin 24.9 pg (28.0-33.3); Mean Corpuscular Volume 79.9 fL (83.0-100.0); Mean Platelet Volume 10.9 fL (9.4-12.4); Monocytes # 0.6 K/mcL (0.0-1.3); Monocytes % 9.3 %; Neutrophils # 4.5 K/mcL (1.6-8.9); Platelet Count 261 K/mcL (140-400); Red Blood Count 4.17 M/mcL (3.82-4.97); Red Cell Distribution Width 16.9 % (11.5-14.5); Segmented Neutrophils % 67.5 %
[2017-04-25 05:49] LABS: BUN/Creatinine Ratio 19 (6-26); Blood Urea Nitrogen 12 mg/dL (8-23); Calcium 8.5 mg/dL (8.6-10.3); Carbon Dioxide 30 mEq/L (23-29); Chloride 106 mEq/L (98-107); Chol/HDL Ratio 4.6 (0-4.9); Cholesterol 175 mg/dL (< 200); Glucose 132 mg/dL (70-105); HDL Cholesterol 38 mg/dL (40-59); LDL Cholesterol,Calculated 117 mg/dL (0-99); Magnesium 1.6 mg/dL (1.6-2.6); Osmolality,Calculated 292 (280-300); Potassium 3.2 mEq/L (3.5-5.1); Sodium 140 mEq/L (136-145); Triglycerides 100 mg/dL (< 150); eGFR For African Americans > 60 (> 60); eGFR For Non-African Americans > 60 (> 60)
[2017-04-25] MEDS: *HR* Heparin 5,000 UNIT/ML VIAL SQ SCH ×2 (06:47→16:22)
--- NOTE | 2017-04-25 09:19 | Electrocardiograph Report ---
[address] [address] Test Date: 2017-04-24 Pat Name: Alma Orlando Department: 102 Room: 2NE17 Gender: Sap Integration Architect: Yohan : 1935 Requested By: Brigido Mccallum Order Number: [id number] Reading MD: Lauren France Measurements Intervals [place] Rate: 64 P: IN: 0 QRS: 44 QRSD: 107 T: 23 QT: 404 QTc: 413 Interpretive Statements BASELINE ARTIFACT LIMITS INTERPRETATION LOW QRS VOLTAGE IN PRECORDIAL LEADS [QRS DEFLECTION < 1.0 mV IN CHEST LEADS] Electronically Signed On 04-25-2017 9:17:46 EST by Lauren France
--- NOTE | 2017-04-25 12:51 | Electrocardiograph Report ---
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
[2017-04-25] MEDS ORDERED: *HR* OxyCODONE Immed Rel 5 MG TABLET PO PRN (13:07)
[2017-04-25] MEDS ORDERED: Acetaminophen 325 MG TABLET PO PRN ×2 (13:07→15:00)
--- NOTE | 2017-04-25 13:11 | Internal Med Progress Note ---
Date of Encounter: 04/25/17 Time of Encounter: 13:14 - Assessment and plan (1) Stroke or transient ischemic attack (TIA) diagnosed during current admission Current Visit: Yes Status: Acute Assessment and plan: initial presenting symptoms resolved MRI brain reported: No evidence of acute infarct. Right parietal lobe encephalomalacia and moderate chronic microvascular ischemic changes of cerebral white matter. Age related atrophy. Right parietal scalp 2.5 cm indeterminate lesion. Neurology evaluation requested continue ASA, Statin f/u carotid doppler speech evaluation noted, started on diet as per speech therapist's recommendation\ PT/OT evaluation requested (2) Hypertension Current Visit: No Status: Chronic Assessment and plan: noted to be hypertensive restarted home medications Hydralazine 10mg IV q6h prn SBP>160 closely monitor BP Qualifiers: Hypertension type: essential hypertension Qualified Code(s): I10 - Essential (primary) hypertension (3) Alzheimer disease Current Visit: No Status: Chronic Assessment and plan: continue home meds Qualifiers: Alzheimer's disease onset: unspecified onset Dementia behavioral disturbance: without behavioral disturbance Qualified Code(s): G30.9 - Alzheimer's disease, unspecified; F02.80 - Dementia in other diseases classified elsewhere without behavioral disturbance (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 Pt currently AAO x 2, as per family this is the baseline no deficits in speech noted at this time pt currently finsihed treatment with IV ertapenem at the [facility] for UTI denies any discomfort at this time. Noted to be hypertensive, will restart home medications and closely monitor diet started as per speech therapist's recommendations - Constitutional Vitals: Temp Pulse Resp BP Pulse Ox 98.2 F 74 18 178/84 96 04/25/17 06:50 04/25/17 11:30 04/25/17 11:30 04/25/17 11:30 04/25/17 11:30 General appearance: Present: cooperative, A&O X 2, pleasant, no acute distress, answers questions appropriately - Head Head exam: Present: atraumatic, normocephalic - Eye Eye exam: Present: conjuntiva pink, sclera anicteric - Respiratory Respiratory exam: Absent: decreased breath sounds, rales, respiratory distress, wheezes - Cardiovascular Cardiovascular exam: Present: RRR, +S1, +S2. Absent: diastolic murmur, gallop, rubs, systolic murmur - GI/Abdominal GI/Abdominal exam: Present: normal bowel sounds, soft, no peritoneal signs. Absent: distended, tenderness - Extremities Exam Extremities exam: Present: warm, radial pulses palpable and symmetrical. Absent : calf tenderness, pedal edema - Neurological Exam Neurological exam: Present: alert Internal Medicine: Result - Labs CBC & Chem 7: 04/25/17 04:59 04/25/17 04:59 Labs: Short CBC 04/25/17 Range/Units 04:59 WBC 6.6 (4.3-11.1) K/mcL Hgb 10.4 L (11.5-15.4) g/dL Hct 33.3 L (35.3-44.9) % Plt Count 261 (140-400) K/mcL Neutrophils # 4.5 (1.6-8.9) K/mcL BMP 04/25/17 04:59 Sodium 140 Potassium 3.2 L Chloride 106 Carbon Dioxide 30 H BUN 12 Creatinine 0.64 Glucose 132 H Calcium 8.5 L - ABG Interpretation ABG results: PT/INR, D-dimer PT 12.5 Seconds (9.4-12.1) H 04/24/17 19:02 - Impressions Impressions Echocardiogram 04/25/17 21:29 Impressions: Technically a limited study - patient stopped test prematurely. Apical windows and subcostal images were not obtained. Normal LV systolic function demonstrated on windows obtained, EF 60%. RV is not well seen on this study. Mild to moderate mitral regurgitation posteriorly directed. Mild-moderate tricuspid regurgitation. Left Ventricular Wall Motion: Rest Echo Findings The apex, apical inferior, mid inferior, basal inferior, apical anterior, mid anterior, basal anterior, apical septal, mid inferior septal, basal inferior septal, apical lateral, mid anterior lateral and basal anterior lateral angela were not visualized. All other wall segments showed normal motion. Findings: Study Quality * Technically sub-optimal exam. Patient stopped testing prematurely. Apical and subcostal windows were not obtained. ECG Findings * Normal sinus rhythm. Left Ventricle * LVEF 60%. * Normal LV chamber size, wall thickness and function. * Diastolic function not evaluated - apical windows were not obtained. Right Ventricle * RV is not well seen on this study. Left Atrium * Visually, the LA appears moderately dilated. Right Atrium * Right atrium is not well visualized. Aortic Valve * No aortic regurgitation. * Aortic valve not well visualized. * Doppler not performed - no apical windows. Mitral Valve * Mild to moderate mitral regurgitation posteriorly directed. * Possible calcification and thickening of the PMVL. * Doppler not performed - no apical windows. Tricuspid Valve * Tricuspid valve not well visualized. * Mild-moderate tricuspid regurgitation. Pulmonic Valve * Pulmonic valve is not well visualized. * No pulmonic stenosis. * No pulmonic regurgitation. Pulmonary Artery * Pulmonary artery not well visualized. Consult Discharge Plan - Plan Referrals: Mitchell Farah MD [Primary Care Provider] -
[2017-04-25] MEDS: Aspirin 81 MG TAB.CHEW PO SCH (13:50)
--- NOTE | 2017-04-25 16:23 | Palliative - Consult Note ---
Date of Encounter: 04/25/17 Time of Encounter: 09:30 - Assessment and Plan (1) Counseling regarding advanced care planning and goals of care Current Visit: Yes Status: Acute Assessment and plan: Patient is confused, and I was not able to meet with family today. In review of record - if hospice is in question, she doesn't quite yet meet criteria from Parkinsons disease as terminal illness. She has had 2 previous admission for AMS, however both Feb and Mar admission for Urinary sepsis/bacteremia. She participated with speech therapy today and they cleared for diet. Albumin WNL. However palliative performance scale is about 40%, and is reportedly primarily bedbound at the [facility]. She is on room air and having no issues with respiratory status. She is confused but her speech is understandable. Will try and reach family tomorrow and discuss. (2) Altered mental status Current Visit: No Status: Acute Assessment and plan: This appears to have improved - nothing acute on MRI/CT. Monitor Qualifiers: Altered mental status type: somnolence Qualified Code(s): R40.0 - Somnolence (3) Dementia Current Visit: Yes Status: Acute Qualifiers: Dementia type: Alzheimer's disease Alzheimer's disease onset: unspecified onset Dementia behavioral disturbance: without behavioral disturbance Qualified Code(s): G30.9 - Alzheimer's disease, unspecified; F02.80 - Dementia in other diseases classified elsewhere without behavioral disturbance; F02.80 - Dementia in other diseases classified elsewhere without behavioral disturbance; F02.80 - Dementia in other diseases classified elsewhere without behavioral disturbance (4) Parkinsons disease Current Visit: No Status: Chronic Palliative-CN HPI - Data of Consult Consult date: 04/25/17 Requesting Physician: Nirali Myrick MD Primary Care Provider: Mitchell Farah MD - Consult Narrative History of present illness: Ms. Orlando is a 82 year old female with Hx of Parkinson disease, HTN, Hx of UTI/sepsis with recent hospitalizations in February/Mar, carcinoid tumor, sent to ER from [facility] where she was found to have slurred speech. Pt has baseline dementia, There is no family present, and pt is confused - so information is obtained from chart review. Family was called at around 5 pm by [place] and said pt has slurred speech, cannot form full sentences. Pt was sent to ER and stroke alert started. [facility] neurology was consulted in ER, pt is not a candidate for TPA. CT head done, no hemorrhage. Pt was admitted for further evaluation. She has history of carcinoid tumor that has been followed by [facility]. She was receiving monthly injections of Octreotide. Dr. Brigido Moon has followed and care for her Parkinson's disease Upon my visit, she is oriented to name only and pleasantly confused. She can speak in full sentences, however, these are inappropriate and she does not have organized thoughts. She can follow simple commands occasionally, but has difficulty focusing on any tasks, and talks nonstop when asked to perform a movement. She denies pain. Speech therapy is doing evaluation during my visit , and she is eating a cracker. No family is present. a CC: Nirali Myrick MD Past Med Surg Social Fam HX - Past Medical History Medical history: arthritis, cancer, coronary artery disease, CVA, dementia, GERD , hyperlipidemia, hypertension, peripheral artery disease, renal disease, venous stasis, other Psychiatric history: anxiety, depression - Past Surgical History Surgical History: appendectomy, colectomy, herniorrhaphy, hip replacement, orthopedic, other, other - Social History Smoking Status: Never smoker Smokeless Tobacco Status: No Alcohol use: none Drug use: none - Family History Mother Living Status: Medications and Allergies Rotigotine [Neupro] 1 patch TD DAILY 03/15/16 [History] Polyethylene Glycol 3350 [MiraLAX] 17 gm PO DAILY #14 powd.pack 03/18/16 [Rx] Acetaminophen [Tylenol] 650 mg PO Q4-6H PRN 08/03/16 [History] Lisinopril [Zestril] 5 mg PO DAILY 08/03/16 [History] Sennosides/Docusate Sodium [Senna Plus] 1 tab PO BID 08/03/16 [History] Ipratropium/Albuterol Neb [Duoneb] 3 ml IH QID PRN 11/02/16 [History] Mv-Mn/FA/Vit K1/Lycop/Lut/Zeax [Ocuvite Eye + Multi Tablet] 1 tab PO DAILY 11/02 [History] Octreotide Acetate (LAR) [Sandostatin Lar] 20 mg IM QMONTH #6 kit 02/15/17 [Rx] Aspirin 81 mg PO DAILY 04/06/17 [History] Carbidopa/Levodopa ER 50/200 [Sinemet ER 50-200 Tab] 0.5 each PO QID 04/06/17 [ History] Gabapentin [Neurontin] 600 mg PO TID 04/06/17 [History] Oxybutynin [Ditropan] 5 mg PO QID PRN 04/06/17 [History] Oxycodone HCl 5 mg PO Q4H PRN 04/06/17 [History] Ertapenem [INVanz] 1,000 mg IM DAILY #10 vial 04/11/17 [Rx] 3 Allergy/AdvReac Type Severity Reaction Status Date / Time cephalexin [From Keflex] Allergy Rash Verified 11/02/16 13:49 ROS unobtainable: due to mental status Palliative Care-Exam - Constitutional Vitals: Temp Pulse Resp BP Pulse Ox 98.2 F 77 18 154/65 96 04/25/17 06:50 04/25/17 14:59 04/25/17 14:59 04/25/17 14:59 04/25/17 14:59 General appearance: Present: thin - Head Head Exam: Present: normal inspection, normocephalic - Respiratory Respiratory exam: Present: decreased breath sounds, CTAB - Cardiovascular Cardiovascular exam: Present: +S1, +S2 - GI/Abdominal Exam GI/Abdominal exam: Present: normal bowel sounds, soft - Extremities Exam Extremities exam: Present: normal capillary refill, normal inspection - Neurological Exam Neurological exam: Present: alert Additional comments: Pleasantly confused - oriented to name only - Skin Skin exam: Present: dry, warm Internal Medicine - CN: Reslt - Labs CBC & Chem 7: 04/25/17 04:59 04/25/17 04:59 Labs: Short CBC 04/25/17 Range/Units 04:59 WBC 6.6 (4.3-11.1) K/mcL Hgb 10.4 L (11.5-15.4) g/dL Hct 33.3 L (35.3-44.9) % Plt Count 261 (140-400) K/mcL Neutrophils # 4.5 (1.6-8.9) K/mcL BMP 04/25/17 04:59 Sodium 140 Potassium 3.2 L Chloride 106 Carbon Dioxide 30 H BUN 12 Creatinine 0.64 Glucose 132 H Calcium 8.5 L - ABG Interpretation ABG results: PT/INR, D-dimer PT 12.5 Seconds (9.4-12.1) H 04/24/17 19:02 - Impressions Impressions Echocardiogram 04/25/17 21:29 Impressions: Technically a limited study - patient stopped test prematurely. Apical windows and subcostal images were not obtained. Normal LV systolic function demonstrated on windows obtained, EF 60%. RV is not well seen on this study. Mild to moderate mitral regurgitation posteriorly directed. Mild-moderate tricuspid regurgitation. Left Ventricular Wall Motion: Rest Echo Findings The apex, apical inferior, mid inferior, basal inferior, apical anterior, mid anterior, basal anterior, apical septal, mid inferior septal, basal inferior septal, apical lateral, mid anterior lateral and basal anterior lateral angela were not visualized. All other wall segments showed normal motion. Findings: Study Quality * Technically sub-optimal exam. Patient stopped testing prematurely. Apical and subcostal windows were not obtained. ECG Findings * Normal sinus rhythm. Left Ventricle * LVEF 60%. * Normal LV chamber size, wall thickness and function. * Diastolic function not evaluated - apical windows were not obtained. Right Ventricle * RV is not well seen on this study. Left Atrium * Visually, the LA appears moderately dilated. Right Atrium * Right atrium is not well visualized. Aortic Valve * No aortic regurgitation. * Aortic valve not well visualized. * Doppler not performed - no apical windows. Mitral Valve * Mild to moderate mitral regurgitation posteriorly directed. * Possible calcification and thickening of the PMVL. * Doppler not performed - no apical windows. Tricuspid Valve * Tricuspid valve not well visualized. * Mild-moderate tricuspid regurgitation. Pulmonic Valve * Pulmonic valve is not well visualized. * No pulmonic stenosis. * No pulmonic regurgitation. Pulmonary Artery * Pulmonary artery not well visualized. Consult Discharge Plan - Plan Referrals: Mitchell Farah MD [Primary Care Provider] - Palliative Quality Palliative Quality: Screen for Code Status: NA (pt confused, no family present) , Screen for Goals of Care: NA, Screen for Pain: NA, If Pain Regimen Started, Initiate Bowel Regimen: NA, Screen for Nausea/Vomitting: NA
[2017-04-25] MEDS: Carbidopa/Levodopa ER 50/200 TABLET PO SCH ×2 (17:14→21:16)
--- NOTE | 2017-04-25 17:28 | Neurology - Consult Note ---
Date of Encounter: 04/25/17 Time of Encounter: 17:26 Assessment and Plan (1) Altered mental status Current Visit: No Status: Acute Patient presented to [facility] with altered mental status which seems to have improved since admission. No evidence to support acute cerebral infarct. She does have evidence of a urinary tract infection. Certainly this is a common cause of confusion in the elderly population. I would recommend maintaining her Parkinson's medications as they are currently. I will defer treatment of her UTI to your discretion. We will reevaluate tomorrow. Qualifiers: Altered mental status type: somnolence Qualified Code(s): R40.0 - Somnolence History of Present Illness HPI: Ms. Orlando is a 82 year old female who is well known to me from my office practice for Parkinson's disease and mild dementia is admitted to [facility] secondary to mental status changes. Apparently she became confused going to the [facility] staff and was having some difficulty with general conversation and some somnolence. She was sent to [facility] for further assessment. MRI scan of the brain does reveal an old right parietal lobe infarct however did not reveal evidence of new stroke. She does have evidence of a UTI however. No changes in her medications have been made however she has been on carbidopa levodopa for quite some time now which can cause confusion particularly as dementia advances. However upon my walking into the room she immediately recognized me. She seems to me to be close to her baseline status. She denies headache, she is not somnolent or encephalopathic at this time. Denies any new neurologic deficits. She is not able to walk due to contractures of her leg secondary to advanced Parkinson's disease. Past Med Surg Social Fam HX - Past Medical History Medical history: arthritis, cancer, coronary artery disease, CVA, dementia, GERD , hyperlipidemia, hypertension, peripheral artery disease, renal disease, venous stasis, other Psychiatric history: anxiety, depression - Past Surgical History Surgical History: appendectomy, colectomy, herniorrhaphy, hip replacement, orthopedic, other, other - Social History Smoking Status: Never smoker Smokeless Tobacco Status: No Alcohol use: none Drug use: none - Family History Mother Living Status: Medications and Allergies Rotigotine [Neupro] 1 patch TD DAILY 03/15/16 [History] Polyethylene Glycol 3350 [MiraLAX] 17 gm PO DAILY #14 powd.pack 03/18/16 [Rx] Acetaminophen [Tylenol] 650 mg PO Q4-6H PRN 08/03/16 [History] Lisinopril [Zestril] 5 mg PO DAILY 08/03/16 [History] Sennosides/Docusate Sodium [Senna Plus] 1 tab PO BID 08/03/16 [History] Ipratropium/Albuterol Neb [Duoneb] 3 ml IH QID PRN 11/02/16 [History] Mv-Mn/FA/Vit K1/Lycop/Lut/Zeax [Ocuvite Eye + Multi Tablet] 1 tab PO DAILY 11/02 [History] Octreotide Acetate (LAR) [Sandostatin Lar] 20 mg IM QMONTH #6 kit 02/15/17 [Rx] Aspirin 81 mg PO DAILY 04/06/17 [History] Carbidopa/Levodopa ER 50/200 [Sinemet ER 50-200 Tab] 0.5 each PO QID 04/06/17 [ History] Gabapentin [Neurontin] 600 mg PO TID 04/06/17 [History] Oxybutynin [Ditropan] 5 mg PO QID PRN 04/06/17 [History] Oxycodone HCl 5 mg PO Q4H PRN 04/06/17 [History] Ertapenem [INVanz] 1,000 mg IM DAILY #10 vial 04/11/17 [Rx] 3 Allergy/AdvReac Type Severity Reaction Status Date / Time cephalexin [From Keflex] Allergy Rash Verified 11/02/16 13:49 All Systems: A 10-system review of systems was performed and is negative for pertinent findings except as documented above in the HPI. Review of Systems: Review of systems is consistent with a history of present illness and is otherwise negative. Physical Examination - Vital Signs Vital Signs: Initial Vital Signs Temp Pulse Resp BP Pulse Ox 98.2 F 68 18 150/103 99 04/24/17 18:25 04/24/17 18:25 04/24/17 18:25 04/24/17 18:25 04/24/17 18:25 - Constitutional General appearance: comfortable - Neurologic Detailed motor examination: other (No resting tremors present, she does have masked facies.) Motor examination - right side: 2/5: hip flexors, 3/5: tibialis Anterior, quadriceps, toe extension (EHL), plantarflexion, 5/5: deltoids, biceps, triceps , marble polisher Motor examination - left side: 2/5: hip flexors, 3/5: quadriceps, tibialis Anterior, toe extension (EHL), plantarflexion, 5/5: deltoids, biceps, triceps, marble polisher Detailed sensory examination: intact Posture: other (Legs are contracted at the knee bilaterally.) Reflexes: Biceps: 1+, Triceps: 1+, Brachioradialis: 1+, Patella: 0, Achilles: 0 Mental Status Examination: awake, alert, oriented to person, oriented to place, follows commands appropriately, no agnosia, no aphasia Cranial nerve examination: PERRL, EOMI, visual yancey intact, corneal reflexes brisk symmetrically, sensory to face intact, mastication intact, no facial asymmetry is present, no dysarthria, tongue protrudes midline Results - Laboratory Findings CBC and BMP: 04/25/17 04:59 04/25/17 04:59 Abnormal lab findings: Abnormal lab results Hgb 10.4 g/dL (11.5-15.4) L 04/25/17 04:59 Hct 33.3 % (35.3-44.9) L 04/25/17 04:59 MCV 79.9 fL (83.0-100.0) L 04/25/17 04:59 MCH 24.9 pg (28.0-33.3) L 04/25/17 04:59 MCHC 31.2 g/dL (31.6-35.5) L 04/25/17 04:59 RDW 16.9 % (11.5-14.5) H 04/25/17 04:59 PT 12.5 Seconds (9.4-12.1) H 04/24/17 19:02 Potassium 3.2 mEq/L (3.5-5.1) L 04/25/17 04:59 Carbon Dioxide 30 mEq/L (23-29) H 04/25/17 04:59 Glucose 132 mg/dL (70-105) H 04/25/17 04:59 POC Glucose 136 (58-89) H 04/25/17 11:27 Calcium 8.5 mg/dL (8.6-10.3) L 04/25/17 04:59 AST 11 Units/L (13-39) L 04/24/17 19:02 ALT 4 Units/L (7-52) L 04/24/17 19:02 LDL Cholesterol, Calc 117 mg/dL (0-99) H 04/25/17 04:59 HDL Cholesterol 38 mg/dL (40-59) L 04/25/17 04:59 Urine Clarity Cloudy (Clear) A 04/24/17 19:43 Urine Protein 30 mg/dL (Neg-Trace) H 04/24/17 19:43 Ur Leukocyte Esterase Trace (Negative) H 04/24/17 19:43 Urine Microscopic WBC 30-50 per hpf (0-3) H 04/24/17 19:43 Ur Squamous Epith Cells Many per lpf (None-Few) H 04/24/17 19:43 Urine Bacteria Many per hpf (None-Few) H 04/24/17 19:43 Consult Discharge Plan - Plan Referrals: Mitchell Farah MD [Primary Care Provider] -
[2017-04-26 04:41] LABS: Basophils # 0.1 K/mcL (0.0-0.2); Basophils % 0.6 %; Eosinophils # 0.3 K/mcL (0.0-0.6); Eosinophils % 4.3 %; Hematocrit 34.5 % (35.3-44.9); Hemoglobin 10.9 g/dL (11.5-15.4); Immature Granulocytes % 0.3 % (0-4); Lymphocytes # 1.7 K/mcL (0.6-4.6); Lymphocytes % 21.7 %; Mean Corpuscular HGB Conc 31.6 g/dL (31.6-35.5); Mean Corpuscular Volume 79.1 fL (83.0-100.0); Mean Platelet Volume 10.2 fL (9.4-12.4); Monocytes # 0.9 K/mcL (0.0-1.3); Monocytes % 11.1 %; Neutrophils # 4.9 K/mcL (1.6-8.9); Platelet Count 258 K/mcL (140-400); Red Blood Count 4.36 M/mcL (3.82-4.97)
[2017-04-26 05:06] LABS: BUN/Creatinine Ratio 13 (6-26); Blood Urea Nitrogen 9 mg/dL (8-23); Calcium 8.6 mg/dL (8.6-10.3); Carbon Dioxide 26 mEq/L (23-29); Chloride 110 mEq/L (98-107); Glucose 115 mg/dL (70-105); Magnesium 1.5 mg/dL (1.6-2.6); Osmolality,Calculated 296 (280-300); Phosphorous 2.5 mg/dL (2.7-4.5); Potassium 3.2 mEq/L (3.5-5.1); Sodium 143 mEq/L (136-145); eGFR For African Americans > 60 (> 60); eGFR For Non-African Americans > 60 (> 60)
[2017-04-26] MEDS: *HR* Heparin 5,000 UNIT/ML VIAL SQ SCH ×2 (06:45→15:49)
[2017-04-26] MEDS: Carbidopa/Levodopa ER 50/200 TABLET PO SCH ×4 (08:20→22:53)
[2017-04-26] MEDS: Aspirin 81 MG TAB.CHEW PO SCH (08:20)
--- NOTE | 2017-04-26 09:18 | Neurology Progress Note ---
Date of Encounter: 04/26/17 Time of Encounter: 09:16 Assessment and Plan (1) Altered mental status Current Visit: No Status: Acute I believe that Alma's altered mental status is multifactorial. Part of it I believe is due to progressive dementia associated with her Parkinson's disease. I believe even more acute alteration is secondary to the concurrent UTI. It is no evidence to suspect a acute infarct or central nervous system infectious or inflammatory process. Maintain her Parkinson's medications as they are currently. We will follow her peripherally. Qualifiers: Altered mental status type: somnolence Qualified Code(s): R40.0 - Somnolence Subjective Interval history: Chart was reviewed, patient was seen and examined. This morning Alma is still a bit confused. She was trying to cut her napkin with a knife. Much she was verbal she does make eye contact sometimes speaks with loose association. She has no focal deficits this morning. She uses both upper extremities without difficulty. I see no resting tremor this morning. Objective - Constitutional Vitals: Temp Pulse Resp BP Pulse Ox 98.1 F 71 18 161/74 97 04/26/17 07:00 04/26/17 07:00 04/26/17 07:00 04/26/17 07:00 04/26/17 07:00 - Neurological Exam Motor Examination: Present: other (No resting tremors present, she does have masked facies.) Motor examination - left side: 2/5: hip flexors, 3/5: quadriceps, tibialis Anterior, toe extension (EHL), plantarflexion, 5/5: deltoids, biceps, triceps, hash slinger Sensation intact: Present: intact Posture: Present: other (Legs are contracted at the knee bilaterally.) Mental Status Examination: Present: awake, oriented to place, follows commands appropriately, no agnosia, no aphasia, inattentive, demented, rambling. Absent : alert Cranial nerve examination: Present: PERRL, EOMI, visual yancey intact, corneal reflexes brisk symmetrically, sensory to face intact, mastication intact, no facial asymmetry is present, no dysarthria, tongue protrudes midline Results - Laboratory Findings CBC and BMP: 04/26/17 04:32 04/26/17 04:32 Abnormal lab findings: Abnormal lab results Hgb 10.9 g/dL (11.5-15.4) L 04/26/17 04:32 Hct 34.5 % (35.3-44.9) L 04/26/17 04:32 MCV 79.1 fL (83.0-100.0) L 04/26/17 04:32 MCH 25.0 pg (28.0-33.3) L 04/26/17 04:32 RDW 17.0 % (11.5-14.5) H 04/26/17 04:32 PT 12.5 Seconds (9.4-12.1) H 04/24/17 19:02 Potassium 3.2 mEq/L (3.5-5.1) L 04/26/17 04:32 Chloride 110 mEq/L (98-107) H 04/26/17 04:32 Glucose 115 mg/dL (70-105) H 04/26/17 04:32 POC Glucose 136 (58-89) H 04/25/17 11:27 Phosphorus 2.5 mg/dL (2.7-4.5) L 04/26/17 04:32 Magnesium 1.5 mg/dL (1.6-2.6) L 04/26/17 04:32 AST 11 Units/L (13-39) L 04/24/17 19:02 ALT 4 Units/L (7-52) L 04/24/17 19:02 LDL Cholesterol, Calc 117 mg/dL (0-99) H 04/25/17 04:59 HDL Cholesterol 38 mg/dL (40-59) L 04/25/17 04:59 Urine Clarity Cloudy (Clear) A 04/24/17 19:43 Urine Protein 30 mg/dL (Neg-Trace) H 04/24/17 19:43 Ur Leukocyte Esterase Trace (Negative) H 04/24/17 19:43 Urine Microscopic WBC 30-50 per hpf (0-3) H 04/24/17 19:43 Ur Squamous Epith Cells Many per lpf (None-Few) H 04/24/17 19:43 Urine Bacteria Many per hpf (None-Few) H 04/24/17 19:43 Consult Discharge Plan - Plan Referrals: Mitchell Farah MD [Primary Care Provider] -
--- NOTE | 2017-04-26 10:32 | Internal Med Progress Note ---
<Kahlil Braga - Last Filed: 04/26/17 15:29> Date of Encounter: 04/26/17 Time of Encounter: 09:15 - Assessment and plan (1) Stroke or transient ischemic attack (TIA) diagnosed during current admission Current Visit: Yes Status: Acute Assessment and plan: initial presenting symptoms resolved MRI brain reported: No evidence of acute infarct. Right parietal lobe encephalomalacia and moderate chronic microvascular ischemic changes of cerebral white matter. Age related atrophy. Right parietal scalp 2.5 cm indeterminate lesion. Neurology has seen the patient and said there is nothing else that they need to do this most likely is progressing from her Parkinson's/Alzheimer's disease. Neurologically she is completely back to baseline. They said there could have been a small stroke causing this point MRI did not show anything acute. continue ASA, Statin f/u carotid doppler speech evaluation noted, started on diet as per speech therapist's recommendation\ PT/OT evaluation were not done today as patient was not in the room and they came by. Patient is currently being seen by palliative. They recommended that she will go back to her ECF as hospice is not needed at this time. We will plan for discharge tomorrow if patient has no overnight events. 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 No further treatment needed. (4) DVT prophylaxis Current Visit: Yes Status: Acute Assessment and plan: Heparin SQ (5) Alzheimer disease Current Visit: Yes Status: Chronic Assessment and plan: continue home meds Qualifiers: Alzheimer's disease onset: unspecified onset Dementia behavioral disturbance: without behavioral disturbance Qualified Code(s): G30.9 - Alzheimer's disease, unspecified; F02.80 - Dementia in other diseases classified elsewhere without behavioral disturbance; F02.80 - Dementia in other diseases classified elsewhere without behavioral disturbance; F02.80 - Dementia in other diseases classified elsewhere without behavioral disturbance (6) Parkinsons disease Current Visit: Yes Status: Chronic Assessment and plan: continue home meds (7) Hypophosphatemia Current Visit: Yes Status: Acute Assessment and plan: Will give phosphate We will monitor tomorrow with BMP. (8) Hypokalemia Current Visit: Yes Status: Acute Assessment and plan: We will replete with by mouth potassium. There were no EKG changes or any other systemic effects due to this. We will continue to monitor with BMP in a.m. - Subjective Interval history: The patient is doing well today so she has no other complaints. She is having no pain with urination but was having urgency. She said that she has not had any of her slurred speech or neurological changes. That she does remember everything. Patient otherwise having no chest pain, shortness of breath, abdominal pain, fever, chills, change in bowel movements. Patient otherwise has no complaints. No overnight events. - Constitutional Vitals: Temp Pulse Resp BP Pulse Ox 98.1 F 71 18 161/74 97 04/26/17 07:00 04/26/17 07:00 04/26/17 07:00 04/26/17 07:00 04/26/17 07:00 General appearance: Present: cooperative, A&O X 3, pleasant, no acute distress, answers questions appropriately Exam: Patient was alert and oriented [address] and time. She otherwise able to follow all commands. There is no slurred speech or any other neurological deficits. - Head Head exam: Present: atraumatic, normocephalic - Eye Eye exam: Present: PERRL, conjuntiva pink, sclera anicteric Pupils: Present: PERRL - Neck Neck exam general surgery: Present: supple, trachea midline. Absent: lymphadenopathy - Respiratory Respiratory exam: Present: CTAB. Absent: accessory muscle use, rales, rhonchi, wheezes - Cardiovascular Cardiovascular exam: Present: RRR, +S1, +S2. Absent: diastolic murmur, gallop, rubs, systolic murmur - GI/Abdominal GI/Abdominal exam: Present: normal bowel sounds, soft, no peritoneal signs. Absent: distended, tenderness - Extremities Exam Extremities exam: Present: warm, radial pulses palpable and symmetrical. Absent : calf tenderness, cyanotic, pedal edema - Neurological Exam Neurological exam: Present: CN II-XII intact, oriented X3, no focal deficits. Absent: pronater drift, facial droop, speech deficit - Skin Skin exam: Present: dry, intact Internal Medicine: Result - Labs CBC & Chem 7: 04/26/17 04:32 04/26/17 04:32 Labs: Short CBC 04/26/17 Range/Units 04:32 WBC 7.8 (4.3-11.1) K/mcL Hgb 10.9 L (11.5-15.4) g/dL Hct 34.5 L (35.3-44.9) % Plt Count 258 (140-400) K/mcL Neutrophils # 4.9 (1.6-8.9) K/mcL [facility] 04/26/17 04:32 Sodium 143 Potassium 3.2 L Chloride 110 H Carbon Dioxide 26 BUN 9 Creatinine 0.72 Glucose 115 H Calcium 8.6 - ABG Interpretation ABG results: PT/INR, D-dimer PT 12.5 Seconds (9.4-12.1) H 04/24/17 19:02 Consult Discharge Plan - Plan Referrals: Mitchell Farah MD [Primary Care Provider] - <Martínez Pedraza - Last Filed: 04/26/17 17:02> Date of Encounter: 04/26/17 - Constitutional Vitals: Temp Pulse Resp BP Pulse Ox 98.1 F 67 18 149/56 97 04/26/17 07:00 04/26/17 15:22 04/26/17 15:22 04/26/17 15:22 04/26/17 15:22 Internal Medicine: Result - Labs CBC & Chem 7: 04/26/17 04:32 04/26/17 04:32 Labs: Short CBC 04/26/17 Range/Units 04:32 WBC 7.8 (4.3-11.1) K/mcL Hgb 10.9 L (11.5-15.4) g/dL Hct 34.5 L (35.3-44.9) % Plt Count 258 (140-400) K/mcL Neutrophils # 4.9 (1.6-8.9) K/mcL [facility] 04/26/17 04:32 Sodium 143 Potassium 3.2 L Chloride 110 H Carbon Dioxide 26 BUN 9 Creatinine 0.72 Glucose 115 H Calcium 8.6 - ABG Interpretation ABG results: PT/INR, D-dimer PT 12.5 Seconds (9.4-12.1) H 04/24/17 19:02 - Attending Attestation I examined this patient and my medical decision-making was reviewed with the Resident Physician on 04/26/17. I agree with the documented findings, disposition and treatment plan as described except to the extent set forth below. Seen and examined at the bedside 82 F who is admitted for altered mental status secondary to progressive dementia Patient has just been treated for UTI, and has no evidence of UTI per UA, UA is dirty Pleasantly confused on exam, systemic findings unremarkable, no neurologic deficits. Lab and Imaging reviewed; Hypokalemia, Hypomagnesemia, ECHO MRI Carotid Doppler unremarkable PTOT eval prior to d/c Continue current care, patient is medically stable to be discharged to SNF when socially cleared. Rest of details as in the resident physicians documentation.
--- NOTE | 2017-04-26 11:09 | Palliative Progress Note ---
Date of Encounter: 04/26/17 Time of Encounter: 09:50 - Assessment and plan (1) Counseling regarding advanced care planning and goals of care Current Visit: Yes Status: Acute Assessment and plan: Spoke with son Bennett (POGwen) via telephone. He was here later yesterday. Discussed goals of care and updated on current clinical status. He was concerned she was septic again - discussed that UA on admission was clean and no culture indicated - blood cultures were not done. He acknowledged that dementia from Parkinson's was slowing worsening. She currently is confused - but speaks in full sentences, does not walk but does use upper extremities, Requires assistance with feeding. Albumin 3.8. 2 recent UTI/sepsis infections , but does not appear to have active infection at this time. Discussed with son that she will eventually require hospice care, however, do not feel she quite meets criteria at this time, and she may stay at her current status for quite some time. Bennett verbalized understanding. Bennett' does work for [employer] - told him would be happy to discuss with her if desired. Appears to be close to baseline - anticipate transfer back to [facility] soon. (2) Altered mental status Current Visit: No Status: Acute Qualifiers: Altered mental status type: somnolence Qualified Code(s): R40.0 - Somnolence (3) Dementia Current Visit: Yes Status: Acute Qualifiers: Dementia type: Alzheimer's disease Alzheimer's disease onset: unspecified onset Dementia behavioral disturbance: without behavioral disturbance Qualified Code(s): G30.9 - Alzheimer's disease, unspecified; F02.80 - Dementia in other diseases classified elsewhere without behavioral disturbance; F02.80 - Dementia in other diseases classified elsewhere without behavioral disturbance; F02.80 - Dementia in other diseases classified elsewhere without behavioral disturbance (4) Parkinsons disease Current Visit: No Status: Chronic - Time Spent With Patient Total time spent is greater than 50% in coordination of care (as documented) at patient's floor/unit and/or counseling patient: - Subjective Interval history: Patient awake and alert - I fed her breakfast and tolerated 3/4 bowl oatmeal, few bites eggs and some juice. Oriented to name only - does make more appropriate conversation today. Telling me Dr. Moon was in this am, and told me favorite tv show was "Dancing [place] the [employer]". Denies any complaints. States "this Parkinson's disease is why I don't walk". No family present. - Constitutional Vitals: Abnormal lab results Hgb 10.9 g/dL (11.5-15.4) L 04/26/17 04:32 Hct 34.5 % (35.3-44.9) L 04/26/17 04:32 MCV 79.1 fL (83.0-100.0) L 04/26/17 04:32 MCH 25.0 pg (28.0-33.3) L 04/26/17 04:32 RDW 17.0 % (11.5-14.5) H 04/26/17 04:32 PT 12.5 Seconds (9.4-12.1) H 04/24/17 19:02 Potassium 3.2 mEq/L (3.5-5.1) L 04/26/17 04:32 Chloride 110 mEq/L (98-107) H 04/26/17 04:32 Glucose 115 mg/dL (70-105) H 04/26/17 04:32 POC Glucose 136 (58-89) H 04/25/17 11:27 Phosphorus 2.5 mg/dL (2.7-4.5) L 04/26/17 04:32 Magnesium 1.5 mg/dL (1.6-2.6) L 04/26/17 04:32 AST 11 Units/L (13-39) L 04/24/17 19:02 ALT 4 Units/L (7-52) L 04/24/17 19:02 LDL Cholesterol, Calc 117 mg/dL (0-99) H 04/25/17 04:59 HDL Cholesterol 38 mg/dL (40-59) L 04/25/17 04:59 Urine Clarity Cloudy (Clear) A 04/24/17 19:43 Urine Protein 30 mg/dL (Neg-Trace) H 04/24/17 19:43 Ur Leukocyte Esterase Trace (Negative) H 04/24/17 19:43 Urine Microscopic WBC 30-50 per hpf (0-3) H 04/24/17 19:43 Ur Squamous Epith Cells Many per lpf (None-Few) H 04/24/17 19:43 Urine Bacteria Many per hpf (None-Few) H 04/24/17 19:43 General appearance: Present: no acute distress - Respiratory Respiratory exam: Present: decreased breath sounds, CTAB - Cardiovascular Cardiovascular exam: Present: +S1 - GI/Abdominal GI/Abdominal exam: Present: normal bowel sounds, soft - Extremities Exam Extremities exam: Present: normal capillary refill, normal inspection - Neurological Exam Neurological exam: Present: alert Additional comments: Oriented to name only. Pleasantly confused. Does follow simple one step commands - Skin Skin exam: Present: dry, pallor, warm Palliative Quality Palliative Quality: Screen for Code Status: NA (pt confused, no family present) , Screen for Goals of Care: NA, Screen for Pain: NA, If Pain Regimen Started, Initiate Bowel Regimen: NA, Screen for Nausea/Vomitting: NA - Labs CBC & Chem 7: 04/26/17 04:32 04/26/17 04:32 Labs: Laboratory Results - last 24 hr 04/25/17 04/26/17 04/26/17 11:27 04:32 04:32 WBC 7.8 RBC 4.36 Hgb 10.9 L Hct 34.5 L MCV 79.1 L MCH 25.0 L MCHC 31.6 RDW 17.0 H Plt Count 258 MPV 10.2 Immature Gran % 0.3 Seg Neutrophils % 62.0 Lymphocytes % 21.7 Monocytes % 11.1 Eosinophils % 4.3 Basophils % 0.6 Neutrophils # 4.9 Lymphocytes # 1.7 Monocytes # 0.9 Eosinophils # 0.3 Basophils # 0.1 Sodium 143 Potassium 3.2 L Chloride 110 H Carbon Dioxide 26 BUN 9 Creatinine 0.72 Est GFR ( Amer) > 60 Est GFR (Non-Af Amer) > 60 BUN/Creatinine Ratio 13 Glucose 115 H POC Glucose 136 H Calculated Osmolality 296 Calcium 8.6 Phosphorus 2.5 L Magnesium 1.5 L - ABG Interpretation ABG results: PT/INR, D-dimer PT 12.5 Seconds (9.4-12.1) H 04/24/17 19:02 Consult Discharge Plan - Plan Referrals: Mitchell Farah MD [Primary Care Provider] -
[2017-04-26 13:26] LABS: % Iron Saturation 13 % (15-50); Iron 32 mcg/dL (50-170); Transferrin 180 mg/dL (203-362)
[2017-04-27] MEDS: *HR* Heparin 5,000 UNIT/ML VIAL SQ SCH (05:51)
[2017-04-27] MEDS: Carbidopa/Levodopa ER 50/200 TABLET PO SCH (08:02)
[2017-04-27] MEDS: Aspirin 81 MG TAB.CHEW PO SCH (08:02)
--- NOTE | 2017-04-27 08:18 | Discharge Summary ---
<Kahlil Braga - Last Filed: 04/27/17 12:40> Date of Encounter: 04/27/17 Time of Encounter: 08:18 - Discharge Diagnosis (1) Stroke or transient ischemic attack (TIA) diagnosed during current admission Priority: Primary Status: Acute (2) Hypertension Priority: Secondary Status: Chronic Qualifiers: Hypertension type: essential hypertension Qualified Code(s): I10 - Essential (primary) hypertension (3) Carcinoid tumor Priority: Secondary Status: Chronic (4) DVT prophylaxis Priority: Secondary Status: Acute (5) Alzheimer disease Priority: Secondary Status: Chronic Qualifiers: Alzheimer's disease onset: unspecified onset Dementia behavioral disturbance: without behavioral disturbance Qualified Code(s): G30.9 - Alzheimer's disease, unspecified; F02.80 - Dementia in other diseases classified elsewhere without behavioral disturbance; F02.80 - Dementia in other diseases classified elsewhere without behavioral disturbance; F02.80 - Dementia in other diseases classified elsewhere without behavioral disturbance (6) Parkinsons disease Priority: Secondary Status: Chronic (7) Hypophosphatemia Priority: Secondary Status: Acute (8) Hypokalemia Priority: Secondary Status: Acute - Discharge Medications Prescriptions: Oxycodone HCl 5 mg PO Q4H PRN #10 tablet PRN Reason: Severe Pain Home Medications: Rotigotine [Neupro] 1 patch TD DAILY 03/15/16 [History] Polyethylene Glycol 3350 [MiraLAX] 17 gm PO DAILY #14 powd.pack 03/18/16 [Rx] Acetaminophen [Tylenol] 650 mg PO Q4-6H PRN 08/03/16 [History] Lisinopril [Zestril] 5 mg PO DAILY 08/03/16 [History] Sennosides/Docusate Sodium [Senna Plus] 1 tab PO BID 08/03/16 [History] Ipratropium/Albuterol Neb [Duoneb] 3 ml IH QID PRN 11/02/16 [History] Mv-Mn/FA/Vit K1/Lycop/Lut/Zeax [Ocuvite Eye + Multi Tablet] 1 tab PO DAILY 11/02 [History] Octreotide Acetate (LAR) [Sandostatin Lar] 20 mg IM QMONTH #6 kit 02/15/17 [Rx] Aspirin 81 mg PO DAILY 04/06/17 [History] Carbidopa/Levodopa ER 50/200 [Sinemet ER 50-200 Tab] 0.5 each PO QID 04/06/17 [ History] Gabapentin [Neurontin] 300 mg PO TID 04/06/17 [History] Oxybutynin [Ditropan] 5 mg PO QID PRN 04/06/17 [History] Ertapenem [INVanz] 1,000 mg IM DAILY #10 vial 04/11/17 [Rx] Oxycodone HCl 5 mg PO Q4H PRN #10 tablet 04/27/17 [Rx] Allergies/Adverse Reactions: 3 Allergy/AdvReac Type Severity Reaction Status Date / Time cephalexin [From Keflex] Allergy Rash Verified 11/02/16 13:49 Procedures/tests Complete & Pending: Procedures Performed prior 72 hours Category Date Time Status EV carotid duplex imaging BI Routine Y 04/25/17 21:29 Completed EV echocardiogram Routine Y 04/25/17 21:29 Completed Date of admission: 04/24/17 21:22 Primary care physician: Mitchell Farah MD Consults: 04/25/17 07:59 Consult to Palliative Care [CONS] Routine Comment: Consulting Provider: [facility] Reason for Consult: establish goals of care/discuss hospice care options Call Completed: Yes 04/25/17 14:29 Consult to Neurology [CONS] Routine Consulting Provider: Neurology [facility] Reason for Consult: CVA Call Completed: Yes Discharging clinician: Kahlil Braga Anticipated date of discharge: 04/27/17 - Patient Status Disposition: Transfer SNF Condition: Fair Functional capacity at discharge: bed bound Overall status at discharge: patient is back to baseline - Discharge Instructions Follow Up With: Mitchell Farah MD [Primary Care Provider] - - Diet and Activity Activity: as per physical therapy Diet: advance to your usual diet Interval History: Patient states he is doing well today. She says she is not having any pain anywhere. Since she is having no numbness or tingling or any weakness anywhere. She said she is eating. She is on chest pain, shortness of breath, abdominal pain, pain with urination, change in bowel movements. Setting of fevers or chills or nausea or vomiting. Patient otherwise has no complaints. No overnight events. Hospital course: Ms. Orlando is a 82 year old female with history of dementia, Parkinson's, Alzheimer's as well as carcinoid tumor where she is following oncology as an outpatient. presented to the emergency department with altered mental status from an ECF who said last night she appeared normal but mildly confused. Today they noticed that she was unable to form words. When they did find out that this occurred within the timeframe for stroke and medially called a stroke alert the patient had an NIH scale of 7. With some hypokinesis of the lip and dysarthria. CT of the head was initially demonstrating no acute process. EKG was possibly atrial fibrillation her repeat showed sinus rhythm. Neurologist at [facility] evaluated the patient via video and determined that because he do not have an exact time it was cyst began tPA would not be indicated. It is suggested that MRI to be done. So at that time the patient was admitted to the hospitalist service. Patient had CTA of the head which also was unremarkable. MRI was reported as no evidence of acute infarct right parietal lobe encephalomalacia and moderate chronic microvascular ischemic changes of the cerebral white matter. This was age-related atrophy. Patient was put on aspirin and statin. Neurology did consult with the patient and said this most likely was not due to an acute neurological event. They had no further recommendations. Speech evaluation recommended soft foods and liquid. PT/OT also saw the patient and the patient is bedbound and did recommend patient go back to the stiff. Patient also talk with palliative care who changed her CODE STATUS to DNR Comfort Care-arrest. They also said the patient right now does not be hospice care and will go back to a care home facility is with her recommendations were. Patient while she was staying here also had a low phosphate as well as potassium so we did replenish those. Patient tolerated this well. Patient also had hypomagnesemia which we also replenish. This seems like it could have been a TIA but a nonicteric hue to stroke. Patient also has dementia as well as Alzheimer's this could just be progressing of that. They did say there was possibility of a urinary tract infection but urinalysis came back only showing dirty and did not recommend culture. We did not treat her with antibiotics while she was here. As this was likely was not a UTI she also is having no symptoms of dysuria. Patient will be discharged back to her care home facility with continuing all of her normal medications. Patient will follow up with primary care physician if there is any other further issues. Radiology results are below: Chest X-Ray 04/24/17 18:33 IMPRESSION: Left basilar airspace disease, atelectasis or pneumonia. Follow-up to resolution is recommended, preferably with a PA and lateral study. D/ / Jessica Kennedy Cha, MD / Jessica Kennedy Cha, MD Interpreting Provider: Jessica Kennedy Cha, MD Head CT 04/24/17 18:34 IMPRESSION: 1. No acute intracranial abnormality. 2. 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 3. Findings compatible with chronic microvascular ischemic disease. 4. Unchanged 2.5 cm right parietal scalp lesion. Findings were discussed with Dr. Brigido Mccallum of the [facility] emergency department at 6:59 pm on 04/24/2017. D/ / Nicolas Oliva MD / Nicolas Oliva MD Interpreting Provider: Nicolas Oliva MD Brain MRI 04/24/17 19:34 IMPRESSION: No evidence of acute infarct. Right parietal lobe encephalomalacia and moderate chronic microvascular ischemic changes of cerebral white matter. Age related atrophy. Right parietal scalp 2.5 cm indeterminate lesion. Dermatologic exam correlation suggested. D/ / Jesus Oh / Jesus Oh Interpreting Provider: Jesus Oh Head CTA 04/24/17 19:34 IMPRESSION: 1. Encephalomalacia right posterior parietal lobe. Please see MRI brain from today. 2. Unremarkable CTA of the head. RECOMMENDATIONS: Sensitivity limited without 3D reformats. An addendum will be performed when these are available. D/ / Yao Eric MD / Yao Eric MD Interpreting Provider: Yao Eric MD Echocardiogram 04/25/17 21:29 Impressions: Technically a limited study - patient stopped test prematurely. Apical windows and subcostal images were not obtained. Normal LV systolic function demonstrated on windows obtained, EF 60%. RV is not well seen on this study. Mild to moderate mitral regurgitation posteriorly directed. Mild-moderate tricuspid regurgitation. Left Ventricular Wall Motion: Rest Echo Findings The apex, apical inferior, mid inferior, basal inferior, apical anterior, mid anterior, basal anterior, apical septal, mid inferior septal, basal inferior septal, apical lateral, mid anterior lateral and basal anterior lateral angela were not visualized. All other wall segments showed normal motion. Findings: Study Quality * Technically sub-optimal exam. Patient stopped testing prematurely. Apical and subcostal windows were not obtained. ECG Findings * Normal sinus rhythm. Left Ventricle * LVEF 60%. * Normal LV chamber size, wall thickness and function. * Diastolic function not evaluated - apical windows were not obtained. Right Ventricle * RV is not well seen on this study. Left Atrium * Visually, the LA appears moderately dilated. Right Atrium * Right atrium is not well visualized. Aortic Valve * No aortic regurgitation. * Aortic valve not well visualized. * Doppler not performed - no apical windows. Mitral Valve * Mild to moderate mitral regurgitation posteriorly directed. * Possible calcification and thickening of the PMVL. * Doppler not performed - no apical windows. Tricuspid Valve * Tricuspid valve not well visualized. * Mild-moderate tricuspid regurgitation. Pulmonic Valve * Pulmonic valve is not well visualized. * No pulmonic stenosis. * No pulmonic regurgitation. Pulmonary Artery * Pulmonary artery not well visualized. - Time Spent with Patient Total time spent providing and/or coordinating discharge services: Greater than 30 minutes - Constitutional Vitals: Temp Pulse Resp BP Pulse Ox 97.2 F L 72 18 161/71 97 04/27/17 06:52 04/27/17 06:52 04/27/17 06:52 04/27/17 06:52 04/27/17 06:52 General appearance: Present: cooperative, A&O X 2 (Not oriented to place but is to person and time), pleasant, no acute distress, answers questions appropriately - Head Head exam: Present: atraumatic, normocephalic - Eye Eye exam: Present: PERRL, conjuntiva pink, sclera anicteric Pupils: Present: PERRL - Neck Neck exam general surgery: Present: supple, trachea midline. Absent: lymphadenopathy - Respiratory Respiratory exam: Present: CTAB. Absent: accessory muscle use, rales, rhonchi, wheezes - Cardiovascular Cardiovascular exam: Present: RRR, +S1, +S2. Absent: diastolic murmur, gallop, rubs, systolic murmur - GI/Abdominal GI/Abdominal exam: Present: normal bowel sounds, soft, no peritoneal signs. Absent: distended, tenderness - Extremities Exam Extremities exam: Present: warm, radial pulses palpable and symmetrical. Absent : calf tenderness, cyanotic, pedal edema - Neurological Exam Neurological exam: Present: alert, no focal deficits. Absent: pronater drift, facial droop, speech deficit - Skin Skin exam: Present: dry, intact <Ishola,Martínez T - Last Filed: 04/27/17 14:51> Date of Encounter: 04/27/17 Procedures/tests Complete & Pending: Procedures Performed prior 72 hours Category Date Time Status EV carotid duplex imaging BI Routine Y 04/25/17 21:29 Completed EV echocardiogram Routine Y 04/25/17 21:29 Completed Date of admission: 04/24/17 21:22 Primary care physician: Mitchell Farah MD Consults: 04/25/17 07:59 Consult to Palliative Care [CONS] Routine Comment: Consulting Provider: [facility] Reason for Consult: establish goals of care/discuss hospice care options Call Completed: Yes 04/25/17 14:29 Consult to Neurology [CONS] Routine Consulting Provider: [facility] Reason for Consult: CVA Call Completed: Yes Hospital course: Ms. Orlando is a 82 year old female - Time Spent with Patient Total time spent providing and/or coordinating discharge services: - Constitutional Vitals: Temp Pulse Resp BP Pulse Ox 96.3 F L 82 18 161/63 97 04/27/17 12:07 04/27/17 12:07 04/27/17 12:07 04/27/17 12:07 04/27/17 12:07 - Attending Attestation I examined this patient and my medical decision-making was reviewed with the Resident Physician on 04/27/17. I agree with the documented findings, disposition and treatment plan as described except to the extent set forth below. Seen and examined at the bedside 82 F who is admitted for altered mental status secondary to progressive dementia and progression of Parkinson's disease Pleasantly confused on exam, systemic findings unremarkable, no neurologic deficits. Lab and Imaging reviewed; Work up unremarkable for any acute events PTOT recommends ECF, patient is medically stable to return to SNF She has just been treated for UTI prior to admission, UA here does not shows UTI Rest of details as in the resident physicians documentation.
[2017-04-27 09:39] LABS: BUN/Creatinine Ratio 14 (6-26); Blood Urea Nitrogen 10 mg/dL (8-23); Carbon Dioxide 25 mEq/L (23-29); Chloride 109 mEq/L (98-107); Glucose 121 mg/dL (70-105); Osmolality,Calculated 294 (280-300); Potassium 3.6 mEq/L (3.5-5.1); Sodium 142 mEq/L (136-145); eGFR For African Americans > 60 (> 60); eGFR For Non-African Americans > 60 (> 60)
--- NOTE | 2017-04-27 11:31 | Physician Discharge Referral ---
ExtendedCare Referral Info Provider in Charge: Claudette Pedraza Provider in Charge after Transfer: PCP Institutional Level of Care: Skilled - Diagnosis (1) Stroke or transient ischemic attack (TIA) diagnosed during current admission Priority: Primary Status: Acute (2) Hypertension Priority: Secondary Status: Chronic (3) Carcinoid tumor Priority: Secondary Status: Chronic (4) DVT prophylaxis Priority: Secondary Status: Acute (5) Alzheimer disease Priority: Secondary Status: Chronic (6) Parkinsons disease Priority: Secondary Status: Chronic (7) Hypophosphatemia Priority: Secondary Status: Acute (8) Hypokalemia Priority: Secondary Status: Acute Prognosis: Fair Aware of Diagnosis: Patient Aware of Prognosis: Patient - Transfer Medications Prescriptions: Oxycodone HCl 5 mg PO Q4H PRN #10 tablet PRN Reason: Severe Pain Home Medications: Rotigotine [Neupro] 1 patch TD DAILY 03/15/16 [History] Polyethylene Glycol 3350 [MiraLAX] 17 gm PO DAILY #14 powd.pack 03/18/16 [Rx] Acetaminophen [Tylenol] 650 mg PO Q4-6H PRN 08/03/16 [History] Lisinopril [Zestril] 5 mg PO DAILY 08/03/16 [History] Sennosides/Docusate Sodium [Senna Plus] 1 tab PO BID 08/03/16 [History] Ipratropium/Albuterol Neb [Duoneb] 3 ml IH QID PRN 11/02/16 [History] Mv-Mn/FA/Vit K1/Lycop/Lut/Zeax [Ocuvite Eye + Multi Tablet] 1 tab PO DAILY 11/02 [History] Octreotide Acetate (LAR) [Sandostatin Lar] 20 mg IM QMONTH #6 kit 02/15/17 [Rx] Aspirin 81 mg PO DAILY 04/06/17 [History] Carbidopa/Levodopa ER 50/200 [Sinemet ER 50-200 Tab] 0.5 each PO QID 04/06/17 [ History] Gabapentin [Neurontin] 300 mg PO TID 04/06/17 [History] Oxybutynin [Ditropan] 5 mg PO QID PRN 04/06/17 [History] Ertapenem [INVanz] 1,000 mg IM DAILY #10 vial 04/11/17 [Rx] Oxycodone HCl 5 mg PO Q4H PRN #10 tablet 04/27/17 [Rx] Allergies/Adverse Reactions: 3 Allergy/AdvReac Type Severity Reaction Status Date / Time cephalexin [From Keflex] Allergy Rash Verified 11/02/16 13:49 - Respiratory Orders Smoking Cessation: Smoking cessation has been advised. For more information, call the [place] [employer] Quit Line at 0-228-[facility]-NOW. - Ancillary Orders May use pressure relief devices daily prn - Advance Directives Code Status: DNR-Comfort Care - Mobility Orders Bedrest - Rehabiliation Orders Rehab Potential: Poor Rehab Orders: Evaluation for Physical Therapy, Evaluation for Occupational Therapy, Evaluation for Speech Therapy - Treatments Skin tear care topically daily PRN per policy - Diet Orders Mechanical Soft CERTIFICATION: I certify that the transfer of the above named patient to an Extended Care Facility is necessary for the continuing treatment of the diagnosis listed. The above information is true and accurate reflection of patient's current condition. Confidential - Redisclosure prohibited without a patient's written consent.
[2017-04-27 12:11] VITALS: BP 161/63
== END 2017-04-27 13:36 | DRG 57 ==
LOC: EMEROO 18:22 → 2NENU 18:22 → SUATTDRO 21:22
PROVIDERS: ADMIT Internal Medicine; ATTEND Internal Medicine

== ENCOUNTER 2017-09-30 16:26 | Inpatient (IN) ==
--- NOTE | 2017-09-30 16:37 | Emergency Department Note ---
Disposition Clinical Impression: Confusion, Hyperkalemia Change in mental status Qualifiers: Altered mental status type: unspecified Qualified Code(s): R41.82 - Altered mental status, unspecified Pneumonia Qualifiers: Pneumonia type: due to unspecified organism Laterality: unspecified laterality Lung location: unspecified part of lung Qualified Code(s): J18.9 - Pneumonia, unspecified organism Disposition: Admitted As Inpatient Condition: Fair Time of Disposition: 20:58 Altered Mental Status HPI - General Stated Complaint: Altered Mental Status Time Seen by Provider: 09/30/17 16:30 Source: other (fpc) Limitations: other (History of Parkinson's, Alzheimer's) Nursing Notes Reviewed: Yes Vital Signs Reviewed: Yes - History of Present Illness HPI Narrative: 82-year-old female with h/o carcinoid tumor of the ileum, Parkinson's, Alzheimer 's, HTN, CVA sent to the ED from [facility] for altered mental status and productive cough. She was recently diagnosed with pneumonia and treated with antibiotics (specifics unknown) at [facility]. She denies any current complaints including pain anywhere, chest pain, shortness of breath, N/V /D, headache, fever or chills - Related Data Home Medications Medication Instructions Recorded Confirmed Rotigotine [Neupro] 1 patch TD DAILY 03/15/16 09/30/17 Acetaminophen [Tylenol] 650 mg PO Q4-6H PRN 08/03/16 09/30/17 Lisinopril [Zestril] 5 mg PO DAILY 08/03/16 09/30/17 Sennosides/Docusate Sodium [Senna 1 tab PO BID 08/03/16 09/30/17 Plus] Ipratropium/Albuterol Neb [Duoneb] 3 ml IH QID PRN 11/02/16 09/30/17 Mv-Min/FA/Vit K/Lycop/Lut/Zeax 1 tab PO DAILY 11/02/16 09/30/17 [Ocuvite Eye Plus Multi Tablet] Aspirin 81 mg PO DAILY 04/06/17 09/30/17 Carbidopa/Levodopa ER 50/200 1 tab PO QID 04/06/17 09/30/17 [Sinemet ER 50-200 Tab] Gabapentin [Neurontin] 300 mg PO TID 04/06/17 09/30/17 Oxybutynin [Ditropan] 5 mg PO QID PRN 04/06/17 09/30/17 Amoxicillin/Clavulanate [Augmentin] 875 mg PO BIDWM 09/30/17 09/30/17 Benzonatate [Tessalon] 100 mg PO TID 09/30/17 09/30/17 Donepezil [Aricept] 5 mg PO HS 09/30/17 09/30/17 Pimavanserin Tartrate [Nuplazid] 34 mg PO DAILY 09/30/17 09/30/17 Previous Rx's Medication Instructions Recorded Polyethylene Glycol 3350 [MiraLAX] 17 gm PO DAILY #14 powd.pack 03/18/16 Oxycodone HCl 5 mg PO Q4H PRN #10 tablet 04/27/17 Octreotide Acetate (LAR) 20 mg IM QMONTH #6 kit 08/18/17 [Sandostatin Lar] Allergies Allergy/AdvReac Type Severity Reaction Status Date / Time cephalexin [From Keflex] Allergy Rash Verified 09/30/17 16:36 gabapentin [From Neurontin] Allergy See Verified 09/30/17 16:36 Comments pregabalin [From Lyrica] AdvReac See Verified 09/30/17 16:36 Comments Constitutional: Denies: fever, chills, weakness Eyes: Denies: eye pain, eye discharge, vision change Cardiovascular: Denies: chest pain, palpitations, dyspnea on exertion, edema, syncope Respiratory: Reports: cough, dyspnea, sputum production. Denies: hemoptysis, stridor Gastrointestinal: Reports: abdominal pain (Intermittent, related to carcinoid tumors, no pain currently). Denies: nausea, vomiting, diarrhea, constipation, hematemesis, melena, hematochezia Genitourinary: Reports: other (Patient wears adult diapers). Denies: dysuria, frequency, hematuria, discharge Musculoskeletal: Denies: back pain, neck pain Neurological: Denies: headache, weakness, numbness, paresthesias, vertigo Endocrine: Denies: heat or cold intolerance Past Medical History - Past Medical History Medical history: Reports: arthritis, cancer, coronary artery disease, CVA, dementia, GERD, hyperlipidemia, hypertension, peripheral artery disease, renal disease, venous stasis, other Surgical history: Reports: appendectomy, colectomy, herniorrhaphy, hip replacement, orthopedic, other, other Psychiatric history: Reports: anxiety, depression - Social History Smoking Status: Never smoker Smokeless Tobacco Status: No Alcohol use: Reports: none Drug use: Reports: none Physical Exam - General Limitations: other (History Alzheimer's Parkinson's) General appearance: alert - Head Head exam: atraumatic, normocephalic, normal inspection - Eye Eye exam: Present: normal appearance (I), PERRL, EOMI - ENT ENT exam: normal exam, normal oropharynx, mucous membranes moist - Neck Neck exam: Present: normal inspection, full ROM, trachea midline. Absent: tenderness - Chest Chest inspection: Present: normal inspection, symmetric chest wall rise - Expanded Respiratory Exam Location: rhonchi: Left, Right, decreased breath sounds: Left, Right, Upper, Lower - Cardiovascular Cardiovascular exam: Present: regular rate, tachycardia - Abdominal Exam Abdominal exam: Present: soft, Non-Tender. Absent: distention, guarding, rebound, rigidity - Extremities Exam Extremities exam: Present: normal inspection. Absent: tenderness, pedal edema - Neurological Exam Neurological exam: Present: alert, oriented X3 Course Course Narrative: Patient seen and evaluated at bedside. She is currently in no distress and has no complaints. She is alert and oriented to person, place, and time. Her lungs sound rough with rhonchi bilaterally, CXR showed infiltrate left lower lobe, possible PNA. WBCs WNL at 7.0. We got blood cultures and gave a dose of vancomycin given her recent h/o PNA. CT head negative for acute intracranial abnormalities. Potassium is elevated at 5.2. We have given Kayexalate 15, 10 units of insulin, 1 g calcium gluconate, and 1 amp of dextrose. Serum creatinine is mildly elevated at 1.22 but this is trending down from 09/21/17 when it was 2.15. Her hemoglobin is stable at 12.0. Urinalysis showed large leukocyte esterase, nitrite negative, will be sent for culture. Patient wears an adult diaper at her care facility, no catheter. Will speak with hospitalist re: admission given her electrolyte abnormalities and AMS - Reevaluation(s) Reevaluation #1: Patient's mental status has improved, she is awake, talkative and joking with me. I discussed her laboratory abnormalities and x-ray findings with patient Time: 20:30 Vital Signs O2 Sat by Pulse Oximetry 100 09/30/17 16:46 Temperature 97.9 F 09/30/17 16:47 Pulse Rate 90 09/30/17 22:07 Respiratory Rate 18 09/30/17 22:07 Blood Pressure 129/81 09/30/17 22:07 O2 Sat by Pulse Oximetry 97 09/30/17 22:07 Oxygen Delivery Oxygen Delivery Room Air Altered Mental Status - MDM Narrative Medical decision making narrative: We are unsure of patient's baseline mental status so will obtain basic laboratory studies, imaging including CT of the head Patient's CT scan of the head is nonacute. Chest x-ray shows infiltrate concerning for pneumonia. - Lab Data Result diagrams: 09/30/17 18:27 09/30/17 18:27 Lab Results 09/30/17 09/30/17 09/30/17 Range/Units 17:12 17:30 18:27 WBC 7.2 (4.3-11.1) K/mcL RBC 4.62 (3.82-4.97) M/mcL Hgb 12.0 D (11.5-15.4) g/dL Hct 38.7 (35.3-44.9) % MCV 83.8 (83.0-100.0) fL MCH 26.0 L (28.0-33.3) pg MCHC 31.0 L (31.6-35.5) g/dL RDW 15.9 H (11.5-14.5) % Plt Count 408 H (140-400) K/mcL MPV 9.4 (9.4-12.4) fL Immature Gran % 1.1 (0-4) % Seg Neutrophils % 67.3 % Lymphocytes % 21.3 % Monocytes % 5.1 % Eosinophils % 4.1 % Basophils % 1.1 % Neutrophils # 4.9 (1.6-8.9) K/mcL Lymphocytes # 1.5 (0.6-4.6) K/mcL Monocytes # 0.4 (0.0-1.3) K/mcL Eosinophils # 0.3 (0.0-0.6) K/mcL Basophils # 0.1 (0.0-0.2) K/mcL PT (9.4-12.1) Seconds INR APTT (26.0-36.0) Seconds Sodium (136-145) mEq/L Potassium (3.5-5.1) mEq/L Chloride (98-107) mEq/L Carbon Dioxide (23-29) mEq/L BUN (8-23) mg/dL Creatinine (0.60-1.20) mg/dL Est GFR ( Amer) (> 60) Est GFR (Non-Af Amer) (> 60) BUN/Creatinine Ratio (6-26) Glucose (70-105) mg/dL Calculated Osmolality (280-300) Calcium (8.6-10.3) mg/dL Total Bilirubin (0.3-1.0) mg/dL Direct Bilirubin (0.0-0.2) mg/dL Indirect Bilirubin (0.0-1.2) mg/dL AST (13-39) Units/L ALT (7-52) Units/L Alkaline Phosphatase (34-104) Units/L Troponin I (< 0.04) ng/mL Serum Total Protein (6.4-8.9) g/dL Albumin (3.5-5.7) g/dL Globulin (2.4-3.5) g/dL Albumin/Globulin Ratio (1.1-2.2) Urine Color Yellow (Yellow) Urine Clarity Cloudy A (Clear) Urine pH 5.5 (5.0-8.0) pH Units Ur Specific [place] 1.022 (1.010-1.025) Urine Protein Negative (Neg-Trace) mg/dL Urine Glucose (UA) Normal (Normal) mg/dL Urine Ketones Negative (Negative) mg/dL Urine Blood Negative (Negative) Urine Nitrite Negative (Negative) Urine Bilirubin Negative (Negative) Urine Urobilinogen Normal (Normal) mg/dL Ur Leukocyte Esterase Large H (Negative) Urine Microscopic RBC 0-3 (0-3) per hpf Urine Microscopic WBC TNTC H (0-3) per hpf Ur Squamous Epith Cells Moderate H (None-Few) per lpf Urine Bacteria None Seen (None-Few) per hpf Ur Culture Indicated? YES A (NO) Urine Opiates Screen Negative (Idngfu=143) ng/mL Ur Barbiturates Screen Negative (Jzrlyy=584) ng/mL Ur Phencyclidine Scrn Positive H (Cutoff=25) ng/mL Ur Amphetamines Screen Negative (Asbhwy=4882) ng/mL U Benzodiazepines Scrn Negative (Ujxlvi=259) ng/mL Urine Cocaine Screen Negative (Cutoff= 300) ng/mL U Marijuana (THC) Screen Negative (Cutoff = 50) ng/mL Ethyl Alcohol (Less than 10) mg/dL 09/30/17 09/30/17 Range/Units 18:27 18:27 WBC (4.3-11.1) K/mcL RBC (3.82-4.97) M/mcL Hgb (11.5-15.4) g/dL Hct (35.3-44.9) % MCV (83.0-100.0) fL MCH (28.0-33.3) pg MCHC (31.6-35.5) g/dL RDW (11.5-14.5) % Plt Count (140-400) K/mcL MPV (9.4-12.4) fL Immature Gran % (0-4) % Seg Neutrophils % % Lymphocytes % % Monocytes % % Eosinophils % % Basophils % % Neutrophils # (1.6-8.9) K/mcL Lymphocytes # (0.6-4.6) K/mcL Monocytes # (0.0-1.3) K/mcL Eosinophils # (0.0-0.6) K/mcL Basophils # (0.0-0.2) K/mcL PT 11.7 (9.4-12.1) Seconds INR 1.1 APTT 30.8 (26.0-36.0) Seconds Sodium 139 (136-145) mEq/L Potassium 5.2 H (3.5-5.1) mEq/L Chloride 111 H (98-107) mEq/L Carbon Dioxide 18 L (23-29) mEq/L BUN 22 (8-23) mg/dL Creatinine 1.22 H (0.60-1.20) mg/dL Est GFR ( Amer) 51 L (> 60) Est GFR (Non-Af Amer) 42 L (> 60) BUN/Creatinine Ratio 18 (6-26) Glucose 97 (70-105) mg/dL Calculated Osmolality 291 (280-300) Calcium 9.1 (8.6-10.3) mg/dL Total Bilirubin 0.3 (0.3-1.0) mg/dL Direct Bilirubin 0.2 (0.0-0.2) mg/dL Indirect Bilirubin 0.1 (0.0-1.2) mg/dL AST 8 L (13-39) Units/L ALT < 3 L (7-52) Units/L Alkaline Phosphatase 78 (34-104) Units/L Troponin I < 0.03 (< 0.04) ng/mL Serum Total Protein 7.1 (6.4-8.9) g/dL Albumin 3.5 (3.5-5.7) g/dL Globulin 3.6 H (2.4-3.5) g/dL Albumin/Globulin Ratio 1.0 L (1.1-2.2) Urine Color (Yellow) Urine Clarity (Clear) Urine pH (5.0-8.0) pH Units Ur Specific [place] (1.010-1.025) Urine Protein (Neg-Trace) mg/dL Urine Glucose (UA) (Normal) mg/dL Urine Ketones (Negative) mg/dL Urine Blood (Negative) Urine Nitrite (Negative) Urine Bilirubin (Negative) Urine Urobilinogen (Normal) mg/dL Ur Leukocyte Esterase (Negative) Urine Microscopic RBC (0-3) per hpf Urine Microscopic WBC (0-3) per hpf Ur Squamous Epith Cells (None-Few) per lpf Urine Bacteria (None-Few) per hpf Ur Culture Indicated? (NO) Urine Opiates Screen (Icjtbz=737) ng/mL Ur Barbiturates Screen (Rngqhg=517) ng/mL Ur Phencyclidine Scrn (Cutoff=25) ng/mL Ur Amphetamines Screen (Yuxxkg=9949) ng/mL U Benzodiazepines Scrn (Pacumv=987) ng/mL Urine Cocaine Screen (Cutoff= 300) ng/mL U Marijuana (THC) Screen (Cutoff = 50) ng/mL Ethyl Alcohol < 10 (Less than 10) mg/dL TPA Checklist - LKW: 3-4.5 hrs Add. Warnings/Precautions Patient/family understanding: The patient/family members have been counseled and understood the risk, benefit , and alternatives of treatment. Attestation Statement - Attestation Attestation: I, Tho Robbins DO, examined this patient [id number] and my medical decision-making was reviewed with Danny James PGY-3, Resident Physician. I agree with the documented findings, disposition and treatment plan as described except to the extent set forth below. Please see my progress notes for details.
[2017-09-30 17:42] LABS: Bilirubin,Urine Negative (Negative); Blood,Urine Negative (Negative); Clarity,Urine Cloudy (Clear); Color,Urine Yellow (Yellow); Glucose,Urine (UA) Normal (Normal); Ketones,Urine Negative (Negative); Leukocyte Esterase,Urine Large (Negative); Nitrite,Urine Negative (Negative); PH,Urine 5.5 pH Units (5.0-8.0); Protein,Urine Negative (Neg-Trace); Specific Gravity,Urine 1.022 (1.010-1.025); Urobilinogen,Urine Normal (Normal)
[2017-09-30 17:45] LABS: Bacteria,Urine None Seen per hpf (None-Few); RBC,Urine 0-3 per hpf (0-3); Squamous Epithelial Cell,Urine Moderate per lpf (None-Few); WBC,Urine TNTC per hpf (0-3)
[2017-09-30 17:52] LABS: Amphetamine Screen,Urine Negative ng/mL (Cutoff=1000); Barbiturate Screen,Urine Negative ng/mL (Cutoff=200); Benzodiazepines Screen,Urine Negative ng/mL (Cutoff=200); Cannabinoid Screen,Urine Negative ng/mL (Cutoff = 50); Cocaine Screen,Urine Negative ng/mL (Cutoff= 300); Opiate Screen,Urine Negative ng/mL (Cutoff=300)
--- NOTE | 2017-09-30 18:18 | Emergency Department Note ---
Disposition Clinical Impression: Confusion, Pneumonia, Hyperkalemia Disposition: Admitted As Inpatient Condition: Fair Time of Disposition: 21:09 General Adult HPI - General Chief complaint: ED Altered Mental Status Stated complaint: Altered Mental Status Time Seen by Provider: 09/30/17 16:30 Source: patient, EMS Limitations: altered mental status - History of Present Illness Pain Scale: 0 - Related Data Home Medications Medication Instructions Recorded Confirmed Rotigotine [Neupro] 1 patch TD DAILY 03/15/16 04/25/17 Acetaminophen [Tylenol] 650 mg PO Q4-6H PRN 08/03/16 04/25/17 Lisinopril [Zestril] 5 mg PO DAILY 08/03/16 04/25/17 Sennosides/Docusate Sodium [Senna 1 tab PO BID 08/03/16 04/25/17 Plus] Ipratropium/Albuterol Neb [Duoneb] 3 ml IH QID PRN 11/02/16 04/25/17 Mv-Min/FA/Vit K/Lycop/Lut/Zeax 1 tab PO DAILY 11/02/16 04/25/17 [Ocuvite Eye Plus Multi Tablet] Aspirin 81 mg PO DAILY 04/06/17 04/25/17 Carbidopa/Levodopa ER 50/200 0.5 each PO QID 04/06/17 04/25/17 [Sinemet ER 50-200 Tab] Gabapentin [Neurontin] 300 mg PO TID 04/06/17 04/27/17 Oxybutynin [Ditropan] 5 mg PO QID PRN 04/06/17 04/25/17 Previous Rx's Medication Instructions Recorded Polyethylene Glycol 3350 [MiraLAX] 17 gm PO DAILY #14 powd.pack 03/18/16 Ertapenem [INVanz] 1,000 mg IM DAILY #10 vial 04/11/17 Oxycodone HCl 5 mg PO Q4H PRN #10 tablet 04/27/17 Octreotide Acetate (LAR) 20 mg IM QMONTH #6 kit 08/18/17 [Sandostatin Lar] Allergies Allergy/AdvReac Type Severity Reaction Status Date / Time cephalexin [From Keflex] Allergy Rash Verified 09/30/17 16:36 gabapentin [From Neurontin] Allergy See Verified 09/30/17 16:36 Comments pregabalin [From Lyrica] AdvReac See Verified 09/30/17 16:36 Comments Past Medical History - Past Medical History Medical history: Reports: arthritis, cancer, coronary artery disease, CVA, dementia, GERD, hyperlipidemia, hypertension, peripheral artery disease, renal disease, venous stasis, other Surgical history: Reports: appendectomy, colectomy, herniorrhaphy, hip replacement, orthopedic, other, other Psychiatric history: Reports: anxiety, depression - Social History Smoking Status: Never smoker Smokeless Tobacco Status: No Alcohol use: Reports: none Drug use: Reports: none Physical Exam - General Limitations: altered mental status General appearance: alert Course Vital Signs O2 Sat by Pulse Oximetry 100 09/30/17 16:46 Temperature 97.9 F 09/30/17 16:47 Pulse Rate 196 09/30/17 16:47 Respiratory Rate 20 09/30/17 16:47 Blood Pressure 141/80 09/30/17 16:47 O2 Sat by Pulse Oximetry 100 09/30/17 16:47 Oxygen Delivery Oxygen Delivery Nasal Cannula Medical Decision Making - Lab Data Lab Results 09/30/17 09/30/17 Range/Units 17:12 17:30 Urine Color Yellow (Yellow) Urine Clarity Cloudy A (Clear) Urine pH 5.5 (5.0-8.0) pH Units Ur Specific [place] 1.022 (1.010-1.025) Urine Protein Negative (Neg-Trace) mg/dL Urine Glucose (UA) Normal (Normal) mg/dL Urine Ketones Negative (Negative) mg/dL Urine Blood Negative (Negative) Urine Nitrite Negative (Negative) Urine Bilirubin Negative (Negative) Urine Urobilinogen Normal (Normal) mg/dL Ur Leukocyte Esterase Large H (Negative) Urine Microscopic RBC 0-3 (0-3) per hpf Urine Microscopic WBC TNTC H (0-3) per hpf Ur Squamous Epith Cells Moderate H (None-Few) per lpf Urine Bacteria None Seen (None-Few) per hpf Ur Culture Indicated? YES A (NO) Urine Opiates Screen Negative (Pesmpi=544) ng/mL Ur Barbiturates Screen Negative (Gowwwz=025) ng/mL Ur Phencyclidine Scrn Positive H (Cutoff=25) ng/mL Ur Amphetamines Screen Negative (Ngfrpj=7910) ng/mL U Benzodiazepines Scrn Negative (Imsbbq=488) ng/mL Urine Cocaine Screen Negative (Cutoff= 300) ng/mL U Marijuana (THC) Screen Negative (Cutoff = 50) ng/mL Attestation Statement - Attestation Attestation: I, Tho Robbins DO, examined this patient [id number] and my medical decision-making was reviewed with Danny James PGY-3, Resident Physician. I agree with the documented findings, disposition and treatment plan as described except to the extent set forth below. Please see my progress notes for details. 82-year-old female seen and examined in conjunction with resident physician. [facility] for evaluation of increased confusion productive cough and alterations in mental status. Patient has a history of Alzheimer's, dementia, Parkinson's disease. She was just seen and evaluated and diagnosed with pneumonia. She is currently on antibiotics at the nursing facility. Currently, she is denying chest pain shortness of breath headache vision changes nausea vomiting or diarrhea. Denies any fevers or chills. Patient is pleasantly confused initially on presentation but does not appear to be in any other specific distress. EMS transported the patient had any complication but the reason for transportation secondary to the concern for progression of her confusion. No other acute issues noted during the transport process. Patient on presentation here is alert and answers questions appropriately and does follow commands without any issue. Patient denies any other symptoms or issues at this point. Physical exam is unremarkable patient does have intermittent coarse breath sounds bilaterally. Oral mucosa is patent trachea is midline. Lungs are clear except for the crackles. Heart is regular. Abdomen is soft nontender nondistended. There is no visible signs of rash or lesion. We will continue to monitor his treatment course is disturbing and completed. Blood cultures screening labs including CBC and chemistry will be resulted long chest x-ray and CT the head. Disposition pending workup. See detailed documentation of physical exam, medical intervention, medical decision- making and disposition in the resident physician's note. 1900 Patient is resting in the bed. Chest x-ray is concerning for pneumonia. Potassium is elevated. Calcium gluconate insulin dextrose and Kayexalate will be given here. No acute EKG changes after review the EKG again here in the emergency room. Patient's heart rate has maintained in the 90s to 95 range. EKG was missed read as atrial fibrillation with rapid ventricular response secondary to underlying baseline noise. Patient is otherwise clinically stable. Admission process to be established. Antibiotics covering for hospital -acquired pneumonia medication will be given. Patient was discussed with the hospitalist no other recommendations or concerns or noted. All other issues will be addressed in the emergency room and admission process will be completed.
[2017-09-30 18:46] LABS: Basophils # 0.1 K/mcL (0.0-0.2); Basophils % 1.1 %; Eosinophils # 0.3 K/mcL (0.0-0.6); Eosinophils % 4.1 %; Hematocrit 38.7 % (35.3-44.9); Immature Granulocytes % 1.1 % (0-4); Lymphocytes # 1.5 K/mcL (0.6-4.6); Lymphocytes % 21.3 %; Mean Corpuscular Volume 83.8 fL (83.0-100.0); Mean Platelet Volume 9.4 fL (9.4-12.4); Monocytes # 0.4 K/mcL (0.0-1.3); Monocytes % 5.1 %; Neutrophils # 4.9 K/mcL (1.6-8.9); Platelet Count 408 K/mcL (140-400); Red Blood Count 4.62 M/mcL (3.82-4.97); Red Cell Distribution Width 15.9 % (11.5-14.5); Segmented Neutrophils % 67.3 %
[2017-09-30 18:54] LABS: INR 1.1; Prothrombin Time 11.7 Seconds (9.4-12.1)
[2017-09-30 18:56] LABS: Activated Partial Thrombo Time 30.8 Seconds (26.0-36.0)
[2017-09-30 19:05] LABS: Troponin I < 0.03 ng/mL (< 0.04)
[2017-09-30 19:16] LABS: Alanine Aminotransferase < 3 Units/L (7-52); Albumin 3.5 g/dL (3.5-5.7); Alkaline Phosphatase 78 Units/L (34-104); Aspartate Amino Transferase 8 Units/L (13-39); BUN/Creatinine Ratio 18 (6-26); Bilirubin,Direct 0.2 mg/dL (0.0-0.2); Bilirubin,Indirect 0.1 mg/dL (0.0-1.2); Bilirubin,Total 0.3 mg/dL (0.3-1.0); Blood Urea Nitrogen 22 mg/dL (8-23); Calcium 9.1 mg/dL (8.6-10.3); Carbon Dioxide 18 mEq/L (23-29); Chloride 111 mEq/L (98-107); Ethanol < 10 mg/dL (Less than 10); Globulin 3.6 g/dL (2.4-3.5); Glucose 97 mg/dL (70-105); Osmolality,Calculated 291 (280-300); Potassium 5.2 mEq/L (3.5-5.1); Sodium 139 mEq/L (136-145); Total Protein 7.1 g/dL (6.4-8.9); eGFR For African Americans 51 (> 60); eGFR For Non-African Americans 42 (> 60)
[2017-09-30] MEDS ORDERED: Insulin Human Regular 10 UNIT in 0.9 % Sodium Chloride 10 ML IV ONE (20:21)
[2017-09-30] MEDS: *HR* Dextrose 50 % in Water (Syg) 50 ML SYRINGE IVP ONE ×2 (20:41→20:45)
[2017-09-30] MEDS ORDERED: Levofloxacin 750 MG/150 ML 750 MG/150 ML BAG IVPB ONE (21:13)
[2017-10-01] MEDS ORDERED: *HR* OxyCODONE Immed Rel 5 MG TABLET PO PRN (03:47)
[2017-10-01] MEDS ORDERED: Acetaminophen 325 MG TABLET PO PRN (03:47)
[2017-10-01] MEDS ORDERED: Naloxone 0.4 MG/ML INJ IVP PRN (03:58)
--- NOTE | 2017-10-01 03:58 | Internal Med History&Physical ---
Date of Encounter: 10/01/17 Time of Encounter: 03:45 Internal Medicine - H&P: HPI Admitted From: Emergency Dept Plans for Post Hospital Care: Transfer [facility] History of present illness: Ms. Orlando is a 82 year old female with past medical history of neuropathy, malignant carcinoid tumor of ileum, Alzheimer disease, and CVA. Pt states she dose not recall events that led to the hospital admission. She reports decreased urinary out put. Denies fever or chills but states she is cold. Pt sates " when I sleep, I have a hard time waking u." Coughing but states minimal sputum. Denies chest pain or SOB. Denies N/V or diarrhea. In ED WBC 7.2, Hgb 12.0, hct 38.7. PT 11.7, INR 1.1. NA 139, K 5.2, BUN 22, Cr 1.22. Urine large leuks, WBC TNTC. Non-contrast CTH IMPRESSION: 1. No evidence of acute intracranial abnormality. 2. Paranasal sinus disease as described above. CXR IMPRESSION: Linear infiltrate at the left lung base could represent pneumonia Past Med Surg Social Fam HX - Past Medical History Medical history: arthritis, cancer, coronary artery disease, CVA, dementia, GERD , hyperlipidemia, hypertension, peripheral artery disease, renal disease, venous stasis, other Additional medical history: neuropathy Psychiatric history: anxiety, depression - Past Surgical History Surgical History: appendectomy, colectomy, herniorrhaphy, hip replacement, orthopedic, other, other Additional surgical history: open heart surgery, - Social History Smoking Status: Never smoker Smokeless Tobacco Status: No Alcohol use: none Drug use: none - Family History Mother Living Status: Internal Medicine - H&P: Meds Rotigotine [Neupro] 1 patch TD DAILY 03/15/16 [History] Polyethylene Glycol 3350 [MiraLAX] 17 gm PO DAILY #14 powd.pack 03/18/16 [Rx] Acetaminophen [Tylenol] 650 mg PO Q4-6H PRN 08/03/16 [History] Lisinopril [Zestril] 5 mg PO DAILY 08/03/16 [History] Sennosides/Docusate Sodium [Senna Plus] 1 tab PO BID 08/03/16 [History] Ipratropium/Albuterol Neb [Duoneb] 3 ml IH QID PRN 11/02/16 [History] Mv-Min/FA/Vit K/Lycop/Lut/Zeax [Ocuvite Eye Plus Multi Tablet] 1 tab PO DAILY [History] Aspirin 81 mg PO DAILY 04/06/17 [History] Carbidopa/Levodopa ER 50/200 [Sinemet ER 50-200 Tab] 1 tab PO QID 04/06/17 [ History] Gabapentin [Neurontin] 300 mg PO TID 04/06/17 [History] Oxybutynin [Ditropan] 5 mg PO QID PRN 04/06/17 [History] Oxycodone HCl 5 mg PO Q4H PRN #10 tablet 04/27/17 [Rx] Octreotide Acetate (LAR) [Sandostatin Lar] 20 mg IM QMONTH #6 kit 08/18/17 [Rx] Amoxicillin/Clavulanate [Augmentin] 875 mg PO BIDWM 09/30/17 [History] Benzonatate [Tessalon] 100 mg PO TID 09/30/17 [History] Donepezil [Aricept] 5 mg PO HS 09/30/17 [History] Pimavanserin Tartrate [Nuplazid] 34 mg PO DAILY 09/30/17 [History] 3 Allergy/AdvReac Type Severity Reaction Status Date / Time cephalexin [From Keflex] Allergy Rash Verified 09/30/17 16:36 gabapentin [From Neurontin] Allergy See Verified 09/30/17 16:36 Comments pregabalin [From Lyrica] AdvReac See Verified 09/30/17 16:36 Comments All Systems PM: A 10-system review of systems was performed and is negative for pertinent findings except as documented above in the HPI. - Constitutional Vitals: Temp Pulse Resp BP Pulse Ox 97.5 F L 74 18 118/77 98 09/30/17 23:22 09/30/17 23:22 09/30/17 23:22 09/30/17 23:22 09/30/17 23:22 Internal Med - H&P Results - Labs CBC & Chem 7: 09/30/17 18:27 09/30/17 18:27 - Assessment and plan (1) Altered mental status Current Visit: Yes Status: Acute Assessment and plan: Will place on antibiotic and fluids. Will monitor for response. Qualifiers: Altered mental status type: unspecified Qualified Code(s): R41.82 - Altered mental status, unspecified (2) Acute cystitis Current Visit: Yes Status: Acute Assessment and plan: Will send urine for culture. Levaquin for now. Qualifiers: Qualified Code(s): N30.00 - Acute cystitis without hematuria (3) Pneumonia Current Visit: Yes Status: Acute Assessment and plan: Will manage as HCAP for now with Vanc and Levaquin. Will check sputum if pt able to give sample. Qualifiers: Qualified Code(s): J18.9 - Pneumonia, unspecified organism (4) Parkinsons disease Current Visit: No Status: Chronic (5) Malignant carcinoid tumor of the ileum Current Visit: No Status: Chronic (6) Dementia Current Visit: No Status: Chronic Qualifiers: Dementia type: Alzheimer's disease Alzheimer's disease onset: unspecified onset Dementia behavioral disturbance: without behavioral disturbance Qualified Code(s): G30.9 - Alzheimer's disease, unspecified; F02.80 - Dementia in other diseases classified elsewhere without behavioral disturbance; F02.80 - Dementia in other diseases classified elsewhere without behavioral disturbance; F02.80 - Dementia in other diseases classified elsewhere without behavioral disturbance - Time Spent With Patient Total time spent is greater than 50% in coordination of care (as documented) at patient's floor/unit and/or counseling patient: 25 - 35 minutes
[2017-10-01] MEDS ORDERED: 0.9 % Sodium Chloride 1,000 ML IVC SCH ×2 (04:00→04:15)
[2017-10-01] MEDS: Ipratropium/Albuterol Neb 3 ML IH SCH ×4 (05:52→22:22)
[2017-10-01] MEDS: Aspirin 81 MG TAB.CHEW PO SCH (11:02)
[2017-10-01] MEDS: Carbidopa/Levodopa ER 50/200 TABLET PO SCH ×4 (11:03→22:58)
[2017-10-01] MEDS: (Rotigotine [Neupro] 1 PATCH) TP SCH (11:03)
[2017-10-01] MEDS: Multivit/Ca/Min/Fe/FA 1 TAB TABLET PO SCH (11:03)
[2017-10-01] MEDS: PIMAVANSERIN TARTRATE 34 MG PO SCH (11:03)
[2017-10-01] MEDS: Gabapentin 300 MG CAPSULE PO SCH ×3 (11:03→22:48)
[2017-10-01] MEDS: Benzonatate 100 MG CAPSULE PO SCH ×3 (11:03→22:49)
[2017-10-01] MEDS: Sennosides/Docusate Sodium TABLET PO SCH ×2 (11:03→22:58)
--- NOTE | 2017-10-01 15:52 | Internal Med Progress Note ---
Date of Encounter: 10/01/17 Time of Encounter: 15:50 - Assessment and plan (1) Volume overload Current Visit: Yes Status: Acute Qualifiers: Hypervolemia type: unspecified Qualified Code(s): E87.70 - Fluid overload, unspecified (2) Pneumonia Current Visit: Yes Status: Acute Qualifiers: Pneumonia type: due to unspecified organism Laterality: unspecified laterality Lung location: unspecified part of lung Qualified Code(s): J18.9 - Pneumonia, unspecified organism (3) Hyperkalemia Current Visit: Yes Status: Acute (4) Acute cystitis Current Visit: Yes Status: Acute Qualifiers: Qualified Code(s): N30.00 - Acute cystitis without hematuria - Time Spent With Patient Plan Close monitoring patient condition overnight. Continue current antibiotic. Close monitoring of blood sugar for next 24-hour. Recheck potassium. Discontinue IV fluid signs of fluid overload. May consider small dose of Lasix. Add aerosol treatment 3 times a day. Add laxative for her constipation. With having hypoglycemia and patient is not diabetic not on any oral medication for diabetes. We will check cortisol level may consider dexamethasone suppression test, cannot rule out [place] Total time spent is greater than 50% in coordination of care (as documented) at patient's floor/unit and/or counseling patient: 25 - 35 minutes - Subjective Interval history: Patient denies any chest pain or shortness of breath. Patient stated that she has a one-week history of cough shortness of breath she has been treated with oral antibiotic at an outpatient, patient does not remember what happened exactly yesterday, she stated that is a rare pitting to take her to lunch no one show up to take her to lunch later she was brought here her glucose was 20 based on report - Constitutional Vitals: Temp Pulse Resp BP Pulse Ox 98.0 F 75 16 120/64 98 10/01/17 15:27 10/01/17 15:27 10/01/17 15:27 10/01/17 15:27 10/01/17 15:27 General appearance: Present: A&O X 2, no acute distress - Head Head exam: Present: atraumatic, normocephalic - Neck Neck exam general surgery: Present: supple, trachea midline. Absent: lymphadenopathy - Respiratory Respiratory exam: Present: decreased breath sounds, CTAB, rhonchi (Rhonchi bilateral lung base). Absent: rales, wheezes - Cardiovascular Cardiovascular exam: Present: RRR, +S1, +S2. Absent: diastolic murmur, gallop, rubs, systolic murmur - Extremities Exam Extremities exam: Present: warm, radial pulses palpable and symmetrical. Absent : calf tenderness, cyanotic, pedal edema - Neurological Exam Neurological exam: Present: CN II-XII intact, oriented X3, no focal deficits. Absent: pronater drift, facial droop, speech deficit Internal Medicine: Result - Labs CBC & Chem 7: 09/30/17 18:27 09/30/17 18:27 - ABG Interpretation ABG results: PT/INR, D-dimer PT 11.7 Seconds (9.4-12.1) 09/30/17 18:27 - VTE Documentation of Mechanical Device: Venous foot pump, device Consult Discharge Plan - Plan Referrals: Jamaica Burk HAND BASEBALL SEWER [Primary Care Provider] -
[2017-10-01] MEDS ORDERED: Thiamine (B-1) 100 MG in D5% in Water 50 ML IVPB ONE (16:12)
[2017-10-01] MEDS ORDERED: D5% in Water 1,000 ML IVC PRN (18:26)
[2017-10-01] MEDS ORDERED: *HR* Dextrose 50 % in Water (Syg) 50 ML SYRINGE IVP PRN (18:26)
[2017-10-01] MEDS ORDERED: Dextrose Gel 15 GM/37.5 ML TUBE PO PRN ×2 (18:26)
[2017-10-02 02:20] LABS: Basophils # 0.1 K/mcL (0.0-0.2); Eosinophils # 0.4 K/mcL (0.0-0.6); Eosinophils % 4.1 %; Hematocrit 36.1 % (35.3-44.9); Immature Granulocytes % 0.6 % (0-4); Lymphocytes % 21.1 %; Mean Corpuscular HGB Conc 30.5 g/dL (31.6-35.5); Mean Corpuscular Hemoglobin 25.5 pg (28.0-33.3); Mean Corpuscular Volume 83.6 fL (83.0-100.0); Mean Platelet Volume 9.6 fL (9.4-12.4); Monocytes # 0.6 K/mcL (0.0-1.3); Monocytes % 6.3 %; Neutrophils # 6.2 K/mcL (1.6-8.9); Platelet Count 388 K/mcL (140-400); Red Blood Count 4.32 M/mcL (3.82-4.97); Red Cell Distribution Width 15.9 % (11.5-14.5); Segmented Neutrophils % 66.9 %
[2017-10-02 02:33] LABS: Calcium 8.6 mg/dL (8.6-10.3); Phosphorous 2.7 mg/dL (2.7-4.5); Potassium 4.3 mEq/L (3.5-5.1)
[2017-10-02] MEDS: Ipratropium/Albuterol Neb 3 ML IH SCH ×4 (04:25→22:21)
[2017-10-02] MEDS ORDERED: Cosyntropin 250 MCG/2 ML VIAL IVP ONE (06:00)
[2017-10-02] MEDS ORDERED: Aminoglycoside Consult 1 EACH MC ONE (08:19)
[2017-10-02] MEDS: Insulin LISPRO 300 UNITS/3 ML VIAL SQ SCH ×3 (08:45→17:00)
[2017-10-02] MEDS: Carbidopa/Levodopa ER 50/200 TABLET PO SCH ×4 (08:54→21:23)
[2017-10-02] MEDS: Multivit/Ca/Min/Fe/FA 1 TAB TABLET PO SCH (08:54)
[2017-10-02] MEDS: Gabapentin 300 MG CAPSULE PO SCH ×3 (08:54→21:23)
[2017-10-02] MEDS: Thiamine (B-1) 100 MG TABLET PO SCH (08:54)
[2017-10-02] MEDS: Benzonatate 100 MG CAPSULE PO SCH ×3 (08:54→21:23)
[2017-10-02] MEDS: Sennosides/Docusate Sodium TABLET PO SCH ×2 (08:54→21:23)
[2017-10-02] MEDS: Aspirin 81 MG TAB.CHEW PO SCH (08:54)
[2017-10-02] MEDS: PIMAVANSERIN TARTRATE 34 MG PO SCH (08:55)
[2017-10-02] MEDS: (Rotigotine [Neupro] 1 PATCH) TP SCH (08:55)
--- NOTE | 2017-10-02 13:34 | Internal Med Progress Note ---
Date of Encounter: 10/02/17 Time of Encounter: 13:10 - Assessment and plan (1) Pneumonia Current Visit: Yes Status: Acute Assessment and plan: Mostly bacterial - unspecified organism cont empirical abx Levaquin and Augmentin suspicious for aspiration PNA too no need of Vancomycin..d/c vanc cont duoneb Patient does need to stay in the hospital more than 2 midnights due to her complex medical problems. So we will change her to full admission today. I did review my colleague Dr. Hitchcock's H & P including HPI, PMH, PSH, FH, SH, and ROS no changes noticed Qualifiers: Pneumonia type: due to unspecified organism Laterality: unspecified laterality Lung location: unspecified part of lung Qualified Code(s): J18.9 - Pneumonia, unspecified organism (2) Acute delirium Current Visit: Yes Status: Acute Assessment and plan: Mostly due to toxic encephalopathy with Pneumonia also due to dementia cont close monitoring PT / OT eval may need ECF placement (3) Hyperkalemia Current Visit: Yes Status: Acute Assessment and plan: Due to dehydration improved (4) Acute cystitis Current Visit: Yes Status: Ruled-out Assessment and plan: Urine cx - no growth no need to treat Qualifiers: Qualified Code(s): N30.00 - Acute cystitis without hematuria (5) CKD (chronic kidney disease) stage 3, GFR 30-59 ml/min Current Visit: Yes Status: Acute Assessment and plan: stable cr ...at baseline - Time Spent With Patient Total time spent is greater than 50% in coordination of care (as documented) at patient's floor/unit and/or counseling patient: - Subjective Interval history: Ms. Orlando is a 82 year old female with past medical history of neuropathy, malignant carcinoid tumor of ileum, Alzheimer disease, and CVA pt who lives by herself was admitted here for acute delirium with Left lower lobe pneumonia. Pt was placed on empirical abx Levaquin, Augmentin and Vancomycin. Pt is alert, awake and oriented to self only. Still looks confused and demented. Pt still has cough with expectoration. Denied any CP. - Constitutional Vitals: Temp Pulse Resp BP Pulse Ox 97.6 F 73 18 117/74 100 10/02/17 12:02 10/02/17 12:02 10/02/17 12:02 10/02/17 12:02 10/02/17 12:02 General appearance: Present: A&O X 2, no acute distress - Head Head exam: Present: atraumatic, normal inspection - Neck Neck exam general surgery: Present: supple - Respiratory Respiratory exam: Present: decreased breath sounds, wheezes (mild). Absent: rales, respiratory distress, rhonchi - Cardiovascular Cardiovascular exam: Present: RRR, +S1, +S2. Absent: tachycardia - GI/Abdominal GI/Abdominal exam: Present: normal bowel sounds, soft. Absent: rebound, rigid, tenderness - Extremities Exam Extremities exam: Absent: calf tenderness, pedal edema, tenderness - Back Exam Back exam: Absent: CVA tenderness (L), CVA tenderness (R) - Neurological Exam Neurological exam: Present: alert, altered - Psychiatric Psychiatric exam: Present: depressed - Skin Skin exam: Absent: rash Internal Medicine: Result - Labs CBC & Chem 7: 10/02/17 01:45 10/02/17 01:45 Labs: Short CBC 10/02/17 Range/Units 01:45 WBC 9.3 (4.3-11.1) K/mcL Hgb 11.0 L (11.5-15.4) g/dL Hct 36.1 (35.3-44.9) % Plt Count 388 (140-400) K/mcL Neutrophils # 6.2 (1.6-8.9) K/mcL BMP 10/02/17 01:45 Sodium 140 Potassium 4.3 Chloride 113 H Carbon Dioxide 22 L BUN 16 Creatinine 1.33 H Glucose 112 H Calcium 8.6 - ABG Interpretation ABG results: PT/INR, D-dimer PT 11.7 Seconds (9.4-12.1) 09/30/17 18:27 - VTE Documentation of Mechanical Device: Intermittent pneumatic compression device Consult Discharge Plan - Plan Referrals: Wm,Jamaica Alexis CNP [Primary Care Provider] -
[2017-10-03 01:25] LABS: Basophils # 0.1 K/mcL (0.0-0.2); Basophils % 0.6 %; Eosinophils # 0.3 K/mcL (0.0-0.6); Hematocrit 34.3 % (35.3-44.9); Hemoglobin 10.7 g/dL (11.5-15.4); Immature Granulocytes % 0.7 % (0-4); Lymphocytes # 2.2 K/mcL (0.6-4.6); Lymphocytes % 21.6 %; Mean Corpuscular HGB Conc 31.2 g/dL (31.6-35.5); Mean Corpuscular Volume 83.3 fL (83.0-100.0); Mean Platelet Volume 9.4 fL (9.4-12.4); Monocytes # 0.7 K/mcL (0.0-1.3); Monocytes % 6.9 %; Neutrophils # 6.7 K/mcL (1.6-8.9); Platelet Count 407 K/mcL (140-400); Red Blood Count 4.12 M/mcL (3.82-4.97); Red Cell Distribution Width 15.9 % (11.5-14.5); Segmented Neutrophils % 67.2 %
[2017-10-03 01:31] LABS: Potassium 4.2 mEq/L (3.5-5.1)
[2017-10-03] MEDS: Ipratropium/Albuterol Neb 3 ML IH SCH ×4 (04:46→23:16)
[2017-10-03] MEDS: Insulin LISPRO 300 UNITS/3 ML VIAL SQ SCH ×3 (08:34→17:14)
[2017-10-03] MEDS: Gabapentin 300 MG CAPSULE PO SCH ×3 (08:37→22:22)
[2017-10-03] MEDS: Sennosides/Docusate Sodium TABLET PO SCH ×2 (08:37→22:22)
[2017-10-03] MEDS: Multivit/Ca/Min/Fe/FA 1 TAB TABLET PO SCH (08:37)
[2017-10-03] MEDS: Aspirin 81 MG TAB.CHEW PO SCH ×2 (08:37→12:32)
[2017-10-03] MEDS: Carbidopa/Levodopa ER 50/200 TABLET PO SCH ×4 (08:37→22:22)
[2017-10-03] MEDS: Benzonatate 100 MG CAPSULE PO SCH ×3 (08:37→22:22)
[2017-10-03] MEDS: Levofloxacin 750 MG/150 ML 750 MG/150 ML BAG IVPB SCH (08:37)
[2017-10-03] MEDS: Thiamine (B-1) 100 MG TABLET PO SCH (08:37)
[2017-10-03] MEDS: PIMAVANSERIN TARTRATE 34 MG PO SCH (08:38)
[2017-10-03] MEDS: (Rotigotine [Neupro] 1 PATCH) TP SCH (08:38)
[2017-10-03 09:27] LABS: Estimated Average Glucose 126 mg/dl
--- NOTE | 2017-10-03 09:27 | Electrocardiograph Report ---
[address] [place], [place] [address] Test Date: 2017-09-30 Pat Name: Alma Orlando Department: 103 Room: [facility] Gender: F [employer]: : 1935 Requested By: Danny James Order Number: [id number] Reading MD: Austin Ortega Measurements Intervals [place] Rate: 189 P: FL: 0 QRS: 47 QRSD: 60 T: 0 QT: 99 QTc: 196 Interpretive Statements SINUS RHYTHM LOW QRS VOLTAGE Electronically Signed On 10-03-2017 9:26:44 EDT by Austin Ortega
--- NOTE | 2017-10-03 13:42 | Internal Med Progress Note ---
<Farheen Plunkett - Last Filed: 10/03/17 13:58> Date of Encounter: 10/03/17 Time of Encounter: 13:40 - Assessment and plan (1) Pneumonia Current Visit: Yes Status: Acute Assessment and plan: Mostly bacterial - sputum culture growing gram + cocci cont empirical abx Levaquin and vanc suspicious for aspiration PNA too cont duoneb Qualifiers: Pneumonia type: due to unspecified organism Laterality: unspecified laterality Lung location: unspecified part of lung Qualified Code(s): J18.9 - Pneumonia, unspecified organism (2) Hyperkalemia Current Visit: Yes Status: Acute Assessment and plan: Due to dehydration improved (3) Acute cystitis Current Visit: Yes Status: Ruled-out Assessment and plan: Urine cx - no growth no need to treat Qualifiers: Hematuria presence: without hematuria Qualified Code(s): N30.00 - Acute cystitis without hematuria (4) Acute delirium Current Visit: Yes Status: Acute Assessment and plan: Mostly due to toxic encephalopathy with Pneumonia also due to dementia cont close monitoring Will go back to [facility] upon discharge (5) CKD (chronic kidney disease) stage 3, GFR 30-59 ml/min Current Visit: Yes Status: Acute Assessment and plan: stable cr at baseline - Time Spent With Patient Total time spent is greater than 50% in coordination of care (as documented) at patient's floor/unit and/or counseling patient: - Subjective Interval history: Patient tired and hard to arouse this morning. Does not carry conversation. Denies complaints. Spoke with nurse at [facility] and states the patient is normally oriented to self and is talkative. Patient was being treated with augmentin and zithromax for pneumonia at [facility] prior to admission. - Constitutional Vitals: Temp Pulse Resp BP Pulse Ox 97.9 F 77 16 134/83 97 10/03/17 11:31 10/03/17 11:31 10/03/17 11:31 10/03/17 11:31 10/03/17 11:31 General appearance: Present: A&O X 2, no acute distress - Head Head exam: Present: atraumatic, normocephalic - Respiratory Respiratory exam: Present: decreased breath sounds. Absent: accessory muscle use, respiratory distress - Cardiovascular Cardiovascular exam: Present: RRR, +S1, +S2. Absent: gallop, rubs - GI/Abdominal GI/Abdominal exam: Present: normal bowel sounds, soft, no peritoneal signs. Absent: distended, tenderness - Neurological Exam Neurological exam: Present: no focal deficits Internal Medicine: Result - Labs CBC & Chem 7: 10/03/17 00:58 10/03/17 00:58 Labs: Short CBC 10/03/17 Range/Units 00:58 WBC 10.0 (4.3-11.1) K/mcL Hgb 10.7 L (11.5-15.4) g/dL Hct 34.3 L (35.3-44.9) % Plt Count 407 H (140-400) K/mcL Neutrophils # 6.7 (1.6-8.9) K/mcL BMP 10/03/17 00:58 Sodium 141 Potassium 4.2 Chloride 110 H Carbon Dioxide 22 L BUN 15 Creatinine 1.27 H Glucose 119 H Calcium 9.0 - ABG Interpretation ABG results: PT/INR, D-dimer PT 11.7 Seconds (9.4-12.1) 09/30/17 18:27 - VTE Documentation of Mechanical Device: Intermittent pneumatic compression device Consult Discharge Plan - Plan Referrals: Jamaica Burk WHITE WORK CLEANER [Primary Care Provider] - <Malinda Mead - Last Filed: 10/03/17 17:55> Date of Encounter: 10/03/17 - Assessment and plan (1) Pneumonia Current Visit: Yes Status: Acute Qualifiers: Pneumonia type: due to unspecified organism Laterality: unspecified laterality Lung location: unspecified part of lung Qualified Code(s): J18.9 - Pneumonia, unspecified organism (2) Acute delirium Current Visit: Yes Status: Acute (3) Hyperkalemia Current Visit: Yes Status: Acute (4) Acute cystitis Current Visit: Yes Status: Ruled-out Qualifiers: Hematuria presence: without hematuria Qualified Code(s): N30.00 - Acute cystitis without hematuria (5) CKD (chronic kidney disease) stage 3, GFR 30-59 ml/min Current Visit: Yes Status: Acute - Time Spent With Patient Total time spent is greater than 50% in coordination of care (as documented) at patient's floor/unit and/or counseling patient: - Constitutional Vitals: Temp Pulse Resp BP Pulse Ox 97.8 F 89 19 145/78 99 10/03/17 16:45 10/03/17 16:45 10/03/17 16:45 10/03/17 16:45 10/03/17 16:45 Internal Medicine: Result - Labs CBC & Chem 7: 10/03/17 00:58 10/03/17 00:58 Labs: Short CBC 10/03/17 Range/Units 00:58 WBC 10.0 (4.3-11.1) K/mcL Hgb 10.7 L (11.5-15.4) g/dL Hct 34.3 L (35.3-44.9) % Plt Count 407 H (140-400) K/mcL Neutrophils # 6.7 (1.6-8.9) K/mcL BMP 10/03/17 00:58 Sodium 141 Potassium 4.2 Chloride 110 H Carbon Dioxide 22 L BUN 15 Creatinine 1.27 H Glucose 119 H Calcium 9.0 - ABG Interpretation ABG results: PT/INR, D-dimer PT 11.7 Seconds (9.4-12.1) 09/30/17 18:27 - Attending Attestation I examined this patient and my medical decision-making was reviewed with the Resident Physician Dr. Plunkett. I agree with the documented findings, disposition and treatment plan as described except to the extent set forth below. Ms. Orlando is a 82 year old female with past medical history of neuropathy, malignant carcinoid tumor of ileum, Alzheimer disease, and CVA pt who lives by herself was admitted here for acute delirium with Left lower lobe pneumonia. Pt was placed on empirical abx Levaquin, Augmentin and Vancomycin. Pt is alert, awake and oriented to self only. Still looks confused and demented. Loos little sleepy this morning Gen: Semi alert Chest: Diminished BS b/l Heart: S1S2+ RRR a/p 1. Acute HCAP - Bacterial 2. Acute toxic encephalopathy 3. AMS 4. Worsening dementia Sputum cx - Staph cocci With known h/o MRSA.. resumed Vancomycin d/c Augmentin Cont Levaquin for now Speech eval pending Possible d/c back to ECF in AM
[2017-10-03] MEDS ORDERED: Vancomycin 1 EACH in 0.9 % Sodium Chloride 250 ML IVPB SCH (14:00)
[2017-10-04 02:10] LABS: Basophils # 0.1 K/mcL (0.0-0.2); Basophils % 0.7 %; Eosinophils # 0.5 K/mcL (0.0-0.6); Eosinophils % 4.4 %; Hematocrit 35.8 % (35.3-44.9); Hemoglobin 11.2 g/dL (11.5-15.4); Immature Granulocytes % 0.8 % (0-4); Lymphocytes % 18.9 %; Mean Corpuscular HGB Conc 31.3 g/dL (31.6-35.5); Mean Corpuscular Hemoglobin 25.9 pg (28.0-33.3); Mean Corpuscular Volume 82.7 fL (83.0-100.0); Mean Platelet Volume 9.2 fL (9.4-12.4); Monocytes # 0.7 K/mcL (0.0-1.3); Monocytes % 6.6 %; Neutrophils # 7.3 K/mcL (1.6-8.9); Platelet Count 411 K/mcL (140-400); Red Blood Count 4.33 M/mcL (3.82-4.97); Segmented Neutrophils % 68.6 %
[2017-10-04 02:28] LABS: Calcium 8.8 mg/dL (8.6-10.3); Potassium 4.2 mEq/L (3.5-5.1)
[2017-10-04] MEDS: Ipratropium/Albuterol Neb 3 ML IH SCH ×4 (04:58→23:44)
[2017-10-04] MEDS: Insulin LISPRO 300 UNITS/3 ML VIAL SQ SCH ×3 (09:02→17:25)
[2017-10-04] MEDS: Aspirin 81 MG TAB.CHEW PO SCH (09:05)
[2017-10-04] MEDS: Thiamine (B-1) 100 MG TABLET PO SCH (09:05)
[2017-10-04] MEDS: Benzonatate 100 MG CAPSULE PO SCH ×3 (09:05→21:44)
[2017-10-04] MEDS: Gabapentin 300 MG CAPSULE PO SCH ×3 (09:05→21:44)
[2017-10-04] MEDS: Sennosides/Docusate Sodium TABLET PO SCH ×2 (09:05→21:44)
[2017-10-04] MEDS: PIMAVANSERIN TARTRATE 34 MG PO SCH (09:05)
[2017-10-04] MEDS: Carbidopa/Levodopa ER 50/200 TABLET PO SCH ×4 (09:05→21:44)
[2017-10-04] MEDS: Multivit/Ca/Min/Fe/FA 1 TAB TABLET PO SCH (09:05)
[2017-10-04] MEDS: (Rotigotine [Neupro] 1 PATCH) TP SCH (09:05)
--- NOTE | 2017-10-04 09:36 | Discharge Summary ---
<Farheen Plunkett - Last Filed: 10/04/17 09:32> Date of Encounter: 10/04/17 Time of Encounter: 09:32 - Discharge Diagnosis (1) Pneumonia Priority: Primary Status: Acute Qualifiers: Pneumonia type: due to unspecified organism Laterality: unspecified laterality Lung location: unspecified part of lung Qualified Code(s): J18.9 - Pneumonia, unspecified organism (2) Hyperkalemia Priority: Secondary Status: Acute (3) Acute cystitis Priority: Secondary Status: Ruled-out Qualifiers: Hematuria presence: without hematuria Qualified Code(s): N30.00 - Acute cystitis without hematuria (4) Acute delirium Priority: Secondary Status: Acute (5) CKD (chronic kidney disease) stage 3, GFR 30-59 ml/min Priority: Secondary Status: Chronic Hospital course: Ms. Orlando is a 82 year old female with past medical history of neuropathy, malignant carcinoid tumor of ileum, Alzheimer disease, and CVA. Patient came from SNF where she was being treated outpatient for pneumonia with levaquin which was then switched to augmentin and zithromax. Patient arrived to the ED with AMS. She was diagnosed with pneumonia and acute cystitis. Urine culture did not grow any bacteria. Sputum culture grew gram positive cocci therefore the patient was placed on vancomycin. Patient's sputum culture showed to be sensitive to doxycycline. Patient will be transferred back to SNF for completion of PO doxycycline for pneumonia. AMS due to toxic encephalopathy with Pneumonia. Patient now back at baseline mental status. Patient also was hyperkalemic upon admission. Due to dehydration and now has resolved. - Time Spent with Patient Total time spent providing and/or coordinating discharge services: - Discharge Medications Prescriptions: Doxycycline 100 mg PO BID #14 capsule Home Medications: Rotigotine [Neupro] 1 patch TD DAILY 03/15/16 [History] Polyethylene Glycol 3350 [MiraLAX] 17 gm PO DAILY #14 powd.pack 03/18/16 [Rx] Acetaminophen [Tylenol] 650 mg PO Q4-6H PRN 08/03/16 [History] Lisinopril [Zestril] 5 mg PO DAILY 08/03/16 [History] Sennosides/Docusate Sodium [Senna Plus] 1 tab PO BID 08/03/16 [History] Ipratropium/Albuterol Neb [Duoneb] 3 ml IH QID PRN 11/02/16 [History] Mv-Min/FA/Vit K/Lycop/Lut/Zeax [Ocuvite Eye Plus Multi Tablet] 1 tab PO DAILY [History] Aspirin 81 mg PO DAILY 04/06/17 [History] Carbidopa/Levodopa ER 50/200 [Sinemet ER 50-200 Tab] 1 tab PO QID 04/06/17 [ History] Gabapentin [Neurontin] 300 mg PO TID 04/06/17 [History] Oxybutynin [Ditropan] 5 mg PO QID PRN 04/06/17 [History] Oxycodone HCl 5 mg PO Q4H PRN #10 tablet 04/27/17 [Rx] Octreotide Acetate (LAR) [Sandostatin Lar] 20 mg IM QMONTH #6 kit 08/18/17 [Rx] Benzonatate [Tessalon] 100 mg PO TID 09/30/17 [History] Donepezil [Aricept] 5 mg PO HS 09/30/17 [History] Pimavanserin Tartrate [Nuplazid] 34 mg PO DAILY 09/30/17 [History] Doxycycline 100 mg PO BID #14 capsule 10/04/17 [Rx] Allergies/Adverse Reactions: 3 Allergy/AdvReac Type Severity Reaction Status Date / Time cephalexin [From Keflex] Allergy Rash Verified 09/30/17 16:36 gabapentin [From Neurontin] Allergy See Verified 09/30/17 16:36 Comments pregabalin [From Lyrica] AdvReac See Verified 09/30/17 16:36 Comments Date of admission: 10/02/17 14:03 Primary care physician: Jamaica Burk, CHAIRMAN AND CEO Consults: 10/02/17 14:10 Consult to Barber Shop Operator [CONS] Routine Reason for Consult: from [facility]; needed for return Discharging clinician: Farheen Plunkett Anticipated date of discharge: 10/04/17 - Constitutional Vitals: Temp Pulse Resp BP Pulse Ox 97.5 F L 69 18 144/77 97 10/04/17 08:07 10/04/17 08:07 10/04/17 08:07 10/04/17 08:07 10/04/17 08:07 General appearance: Present: A&O X 2, pleasant, no acute distress - Head Head exam: Present: atraumatic, normocephalic - Respiratory Respiratory exam: Present: decreased breath sounds. Absent: accessory muscle use, respiratory distress - Cardiovascular Cardiovascular exam: Present: RRR, +S1, +S2. Absent: gallop, rubs - GI/Abdominal GI/Abdominal exam: Present: normal bowel sounds, soft, no peritoneal signs. Absent: distended, tenderness - Neurological Exam Neurological exam: Present: alert, no focal deficits - Patient Status Disposition: Transfer SNF Condition: Fair Overall status at discharge: patient is back to baseline - Discharge Instructions Follow Up With: Jamaica Burk CNP [Primary Care Provider] - Additional Instructions: Please continue home medications. Please add doxycycline antibiotic to your medications to treat your pneumonia. Please follow up with your primary care physician within a week. Please return for any new or worsening symptoms. - Diet and Activity Activity: as per physical therapy Diet: advance to your usual diet - VTE Documentation of Mechanical Device: Intermittent pneumatic compression device <Malinda Mead - Last Filed: 10/04/17 13:33> Date of Encounter: 10/04/17 - Discharge Diagnosis (1) Pneumonia Status: Acute Qualifiers: Pneumonia type: due to unspecified organism Laterality: unspecified laterality Lung location: unspecified part of lung Qualified Code(s): J18.9 - Pneumonia, unspecified organism (2) Acute delirium Status: Resolved (3) Hyperkalemia Status: Resolved (4) Acute cystitis Status: Ruled-out Qualifiers: Hematuria presence: without hematuria Qualified Code(s): N30.00 - Acute cystitis without hematuria (5) CKD (chronic kidney disease) stage 3, GFR 30-59 ml/min Status: Chronic Hospital course: Ms. Orlando is a 82 year old female - Time Spent with Patient Total time spent providing and/or coordinating discharge services: Date of admission: 10/02/17 14:03 Primary care physician: Jamaica Burk CNP Consults: 10/02/17 14:10 Consult to Barber Shop Operator [CONS] Routine Reason for SW Consult: from [facility]; needed for return - Constitutional Vitals: Temp Pulse Resp BP Pulse Ox 97.6 F 78 18 122/86 94 10/04/17 12:08 10/04/17 12:08 10/04/17 12:08 10/04/17 12:08 10/04/17 12:08 - Attending Attestation I examined this patient and my medical decision-making was reviewed with the Resident Physician Dr. Plunkett. I agree with the documented findings, disposition and treatment plan as described except to the extent set forth below. Ms. Orlando is a 82 year old female with past medical history of neuropathy, malignant carcinoid tumor of ileum, Alzheimer disease, and CVA pt who lives by herself was admitted here for acute delirium with Left lower lobe pneumonia. Pt was placed on empirical abx Levaquin, Augmentin and Vancomycin. Pt is more alert, awake and oriented to self only. Still looks confused and demented. Gen: Semi alert Chest: Diminished BS b/l Heart: S1S2+ RRR a/p 1. Acute HCAP - Bacterial..MRSA PNA 2. Acute toxic encephalopathy 3. AMS 4. Worsening dementia Sputum cx - Staph cocci - MRSA Switched to PO Doxy x 7 more days Medially stable to d/c back to ECF
--- NOTE | 2017-10-04 09:49 | Physician Discharge Referral ---
ExtendedCare Referral Info Provider in Charge after Transfer: PCP Institutional Level of Care: Skilled - Diagnosis (1) Pneumonia Priority: Primary Status: Acute (2) Hyperkalemia Priority: Secondary Status: Resolved (3) Acute cystitis Priority: Secondary Status: Ruled-out (4) Acute delirium Priority: Secondary Status: Resolved (5) CKD (chronic kidney disease) stage 3, GFR 30-59 ml/min Priority: Secondary Status: Chronic Prognosis: Fair Aware of Diagnosis: Patient Aware of Prognosis: Patient - Transfer Medications Prescriptions: Doxycycline 100 mg PO BID #14 capsule Home Medications: Rotigotine [Neupro] 1 patch TD DAILY 03/15/16 [History] Polyethylene Glycol 3350 [MiraLAX] 17 gm PO DAILY #14 powd.pack 03/18/16 [Rx] Acetaminophen [Tylenol] 650 mg PO Q4-6H PRN 08/03/16 [History] Lisinopril [Zestril] 5 mg PO DAILY 08/03/16 [History] Sennosides/Docusate Sodium [Senna Plus] 1 tab PO BID 08/03/16 [History] Ipratropium/Albuterol Neb [Duoneb] 3 ml IH QID PRN 11/02/16 [History] Mv-Min/FA/Vit K/Lycop/Lut/Zeax [Ocuvite Eye Plus Multi Tablet] 1 tab PO DAILY [History] Aspirin 81 mg PO DAILY 04/06/17 [History] Carbidopa/Levodopa ER 50/200 [Sinemet ER 50-200 Tab] 1 tab PO QID 04/06/17 [ History] Gabapentin [Neurontin] 300 mg PO TID 04/06/17 [History] Oxybutynin [Ditropan] 5 mg PO QID PRN 04/06/17 [History] Oxycodone HCl 5 mg PO Q4H PRN #10 tablet 04/27/17 [Rx] Octreotide Acetate (LAR) [Sandostatin Lar] 20 mg IM QMONTH #6 kit 08/18/17 [Rx] Benzonatate [Tessalon] 100 mg PO TID 09/30/17 [History] Donepezil [Aricept] 5 mg PO HS 09/30/17 [History] Pimavanserin Tartrate [Nuplazid] 34 mg PO DAILY 09/30/17 [History] Doxycycline 100 mg PO BID #14 capsule 10/04/17 [Rx] Allergies/Adverse Reactions: 3 Allergy/AdvReac Type Severity Reaction Status Date / Time cephalexin [From Keflex] Allergy Rash Verified 09/30/17 16:36 gabapentin [From Neurontin] Allergy See Verified 09/30/17 16:36 Comments pregabalin [From Lyrica] AdvReac See Verified 09/30/17 16:36 Comments - Respiratory Orders Smoking Cessation: Smoking cessation has been advised. For more information, call the [place] Tobacco Quit Line at 4-085-UYYR-NOW. - Ancillary Orders May use pressure relief devices daily prn, May go on MELANI w/family/respon alliance party w /meds at nurse discretion PRN, May consult with Dentist, Lead Quality Control Technician, Search And Rescue Officer PRN - Advance Directives Code Status: Full Code - Mobility Orders Chair - Rehabiliation Orders Rehab Potential: Fair Rehab Orders: Sternal Precautions, ROM Exercises, Evaluation for Physical Therapy, Evaluation for Occupational Therapy, Evaluation for Speech Therapy - Treatments Skin tear care topically daily PRN per policy, May check for fecal impaction rectally daily PRN, Fleet enema rectally every other day PRN cleansing purposes - Diet Orders Regular CERTIFICATION: I certify that the transfer of the above named patient to an Extended Care Facility is necessary for the continuing treatment of the diagnosis listed. The above information is true and accurate reflection of patient's current condition. Confidential - Redisclosure prohibited without a patient's written consent.
[2017-10-04] MEDS ORDERED: Multivit/Ca/Min/Fe/FA 1 TAB TABLET PO SCH (16:00)
[2017-10-04] MEDS: Doxycycline 100 MG CAPSULE PO SCH (21:44)
[2017-10-05] MEDS: Ipratropium/Albuterol Neb 3 ML IH SCH ×2 (04:13→11:03)
--- NOTE | 2017-10-05 08:49 | Internal Med Progress Note ---
Date of Encounter: 10/05/17 Time of Encounter: 08:52 - Assessment and plan (1) Pneumonia Current Visit: Yes Status: Acute Assessment and plan: Bacterial.. MRSA on Po Doxy x 7 days Qualifiers: Pneumonia type: due to unspecified organism Laterality: unspecified laterality Lung location: unspecified part of lung Qualified Code(s): J18.9 - Pneumonia, unspecified organism (2) Acute delirium Current Visit: Yes Status: Resolved Assessment and plan: Mostly due to toxic encephalopathy with Pneumonia also due to dementia cont close monitoring PT / OT eval Medically stable to d/c to ECF today (3) Hyperkalemia Current Visit: Yes Status: Resolved Assessment and plan: Due to dehydration improved (4) Acute cystitis Current Visit: Yes Status: Ruled-out Assessment and plan: Urine cx - no growth no need to treat Qualifiers: Hematuria presence: without hematuria Qualified Code(s): N30.00 - Acute cystitis without hematuria (5) CKD (chronic kidney disease) stage 3, GFR 30-59 ml/min Current Visit: Yes Status: Chronic Assessment and plan: stable cr ...at baseline - Time Spent With Patient Total time spent is greater than 50% in coordination of care (as documented) at patient's floor/unit and/or counseling patient: - Subjective Interval history: Ms. Orlando is a 82 year old female with past medical history of neuropathy, malignant carcinoid tumor of ileum, Alzheimer disease, and CVA pt who lives by herself was admitted here for acute delirium with Left lower lobe pneumonia. Pt was placed on empirical abx Levaquin, Augmentin and Vancomycin. Her sputum cx did grow MRSA. So switched to PO Doxy. Pt is alert, awake and oriented to self only. Still looks confused and demented. Denied any CP. Supposedly pt had to go to ECF y/d, since they do not have isolated room available till today, pt stayed in the hospital. No events over night. - Constitutional Vitals: Temp Pulse Resp BP Pulse Ox 98.2 F 73 19 91/50 93 10/05/17 07:12 10/05/17 07:12 10/05/17 07:12 10/05/17 07:12 10/05/17 07:12 General appearance: Present: A&O X 2, pleasant, no acute distress - Head Head exam: Present: atraumatic, normal inspection - Neck Neck exam general surgery: Present: supple - Respiratory Respiratory exam: Present: decreased breath sounds, respiratory distress. Absent: rhonchi, wheezes - Cardiovascular Cardiovascular exam: Present: RRR, +S1, +S2. Absent: tachycardia - Extremities Exam Extremities exam: Absent: pedal edema, tenderness - Back Exam Back exam: Absent: CVA tenderness (L), CVA tenderness (R) - Neurological Exam Neurological exam: Present: alert - Psychiatric Psychiatric exam: Present: normal affect, normal mood - Skin Skin exam: Absent: rash Internal Medicine: Result - Labs CBC & Chem 7: 10/04/17 01:55 10/04/17 01:55 - ABG Interpretation ABG results: PT/INR, D-dimer PT 11.7 Seconds (9.4-12.1) 09/30/17 18:27 - VTE Documentation of Mechanical Device: Intermittent pneumatic compression device Consult Discharge Plan - Plan Additional Instructions: Please continue home medications. Please add doxycycline antibiotic to your medications to treat your pneumonia. Please follow up with your primary care physician within a week. Please return for any new or worsening symptoms. Referrals: [place] [facility] [Primary Care Provider] - Prescriptions: Doxycycline 100 mg PO BID #14 capsule
[2017-10-05] MEDS: Thiamine (B-1) 100 MG TABLET PO SCH (09:19)
[2017-10-05] MEDS: Benzonatate 100 MG CAPSULE PO SCH (09:19)
[2017-10-05] MEDS: Gabapentin 300 MG CAPSULE PO SCH (09:20)
[2017-10-05] MEDS: Carbidopa/Levodopa ER 50/200 TABLET PO SCH (09:20)
[2017-10-05] MEDS: Doxycycline 100 MG CAPSULE PO SCH (09:20)
[2017-10-05] MEDS: Aspirin 81 MG TAB.CHEW PO SCH (09:20)
[2017-10-05] MEDS: Sennosides/Docusate Sodium TABLET PO SCH (09:20)
[2017-10-05] MEDS: Levofloxacin 750 MG/150 ML 750 MG/150 ML BAG IVPB SCH (09:21)
[2017-10-05] MEDS: (Rotigotine [Neupro] 1 PATCH) TP SCH (09:21)
[2017-10-05] MEDS: PIMAVANSERIN TARTRATE 34 MG PO SCH (09:21)
[2017-10-05] MEDS: Insulin LISPRO 300 UNITS/3 ML VIAL SQ SCH ×2 (09:37→12:06)
[2017-10-05 11:47] VITALS: BP 123/79
[2017-10-16] MEDS ORDERED: Octreotide Acetate (LAR) 30 MG KIT IM SCH (09:00)
== END 2017-10-05 13:01 | DRG 177 ==
LOC: EMEROO 16:26 → 3NENU 16:26 → 3ANU 10-05 00:46
PROVIDERS: ADMIT Pediatrics; ATTEND Pediatrics